=== PATIENT | male | born 1960 | race Caucasian/White ===

== ENCOUNTER → 2020-05-22 15:24 | Outpatient (BNVA) | payer OTHER, SELFPAY | PROVIDERS: PCP Internal Medicine; Visit Provider Surgery | DX: K43.9 Ventral hernia without obstruction or gangrene (principal); K42.9 Umbilical hernia without obstruction or gangrene | CPT/HCPCS: 99212 ==

== ENCOUNTER 2020-05-26 09:55 | Day surgery (SDC) | payer OTHER, SELFPAY ==
[2020-05-26 10:15] LABS: Glucose, Whole Blood 99 mg/dL (60-115)
[2020-05-26 10:23] VITALS: BP 140/85; PULSE 76; RESP 20; TEMP 36.4; O2SAT 97
[2020-05-26 10:24] VITALS: BMI 33.5
[2020-05-26] MEDS: Lactated Ringers 1,000 ML 100 ML IVCONT (10:35)
--- NOTE | 2020-05-26 10:51 | HO.ANESPROP2 ---
HPI - Anesthesia Eval Consult details Narrative: 60 yo male patient here for umbilical and ventral hernia repair PMFSH Active Problems Active Problems: All Active Problems (Updated 05/22/20 @ 16:12 by Harvey Mireles MD) Ventral hernia (Acute) Umbilical hernia (Acute) Type 2 diabetes mellitus with hyperglycemia (Acute) Hypercholesterolemia (Acute) Asthma (Acute) Obstructive sleep apnea (Acute) Obesity (BMI 30-39.9) (Acute) HTN (hypertension) (Acute) Past Medical History Medical History (Updated 05/26/20 @ 11:08 by Korin Sifuentes) Asthma Cholelithiasis Fatty liver Hepatitis C Hypercholesterolemia Obesity (BMI 30-39.9) Obstructive sleep apnea Peripheral neuropathy Peripheral vascular disease Tubular adenoma of colon Type 2 diabetes mellitus with hyperglycemia Umbilical hernia Vitamin D deficiency Family History Family History Father No problems noted. Mother Cancer Maternal Aunt Colon cancer Family history of problems with anesthesia: No Surgical History Surgical History H/O wrist surgery History of Problems with Anesthesia: No Social History Social History Alcohol intake: former Smoking Status: Former smoker Use of substances other than those prescribed or required for medical reasons: No Have you been hit, kicked, punched, or otherwise hurt by someone within the past year? If so, by whom?: No Advance Directives: No Advance Directives Information Provided: Yes Meds Allergies Allergy/AdvReac Type Severity Reaction Status Date / Time No Known Allergies Allergy Verified 05/11/20 20:04 [No Known Allergies*] Active Medications: Current Medications Generic Name Dose Route Start Last Admin Trade Name Freq PRN Reason Stop Dose Admin Lactated Ringer's 1,000 mls @ 50 mls/hr 05/26/20 07:45 Lr IV .Q20H LAINE Lactated Ringer's 1,000 mls @ 100 mls/hr 05/26/20 08:00 05/26/20 10:35 Lr IVCONT 100 mls/hr .Q10H LAINE Administration Exam Exam Date and Time: May 26, 2020 1051 Height,Weight and Vital Signs: Height 6 ft 7 in Weight 135.171 kg Last Vital Signs Temp 97.5 F 05/26/20 10:23 Pulse 76 05/26/20 10:23 Resp 20 05/26/20 10:23 BP 140/85 H 05/26/20 10:23 Pulse Ox 97 05/26/20 10:23 Pertinent Lab Results Pertinent Lab Results: Laboratory Tests 05/26/20 10:05 POC Glucose 99 Airway Mallampati Class: II TM Dist: >3cm Neck ROM: Full Heart: RRR Lungs: CTAB Assessment and Plan Assessment Anesthesia Assessment: Anesthesia Plan Discussed and Chart Reviewed Final Anesthetic Review NPO: Yes ASA Class: III Final Preanesthetic Review: No Changes in Pt Med Stat, Meds/Allgs Chart Reviewed, Consent Obtained/Reviewed and Anes Risks/Benef Reviewed Patient Risk: Intermediate Procedure Risk: Low Assessment/Block/Sedation in SS: Assess/Block/Sedation-SS Anesthetic Plan Anesthetic Plan: GA Disposition: Standard PACU
--- NOTE | 2020-05-26 11:55 | MHC.SHP ---
Pre-Procedural Eval Section A The patient is an INPATIENT: No Changes since office visit: Yes Patient answered all questions; No Cold of Flu in the past 2 weeks, No New Medical Problems and No Changes in Medication The History & Physical has been completed within 30 days and I have reviewed it.: Yes Section B Chief Complaint: umbilical and ventral hernia Allergies: Allergies Allergy/AdvReac Type Severity Reaction Status Date / Time No Known Allergies Allergy Verified 05/11/20 20:04 [No Known Allergies*] Plan Diagnosis/Plan: Unchanged I have reviewed the history and physical and performed a pertinent physical examination on my patient. No changes have occurred unless specified.
--- NOTE | 2020-05-26 13:42 | W.PM.OPN ---
Operative Note Operative Note Date of Service: 05/26/20 Narrative: Preoperative diagnosis: Ventral hernia, umbilical hernia Postoperative diagnosis: Same Procedure: Repair of ventral and umbilical hernia with mesh Surgeon: Harvey Mireles MD Telecine Operator: Marcy Harris PA-C Anesthesia: General LMA Indications for procedure: 60-year-old male patient presenting with a long history of an umbilical hernia as well as a 2nd lump located approximately 5 cm above the umbilicus both of which increase in size with lifting and straining. On examination the patient has both a umbilical hernia and a ventral hernia in the upper midline. Operative findings: Patient was found to have an umbilical and ventral hernia each measuring approximately 3 cm in diameter. The umbilical hernia was repaired with a 6.4 cm round Ventralex mesh and the ventral hernia was also fixed using a 6.4 cm round Ventralex mesh. Specimen: None Estimated blood loss: 5 mL Complications: None Procedure details: Patient was brought to the OR and placed in a supine position. After administering general anesthesia the patient's abdomen was prepped with ChloraPrep and draped in a sterile fashion. A surgical time-out was called and the consent confirmed. Patient received preoperative antibiotics and Venodyne boots were in place. Local anesthesia consisting of 0.75% Sensorcaine with epinephrine was then infiltrated in the midline starting at the mid umbilicus and extending up approximately 10 cm. A midline incision was then made just above the umbilicus and carried out through subcutaneous tissue. Hernia sac was identified at the ventral hernia. This was dissected down to the fascial defect. The fascial defect was then dissected further and the contents reduced. Preperitoneal fat was noted within the hernia sac. This was all reduced into the abdominal cavity. A preperitoneal space was then created from the ventral hernia extending down towards the umbilicus. The umbilical skin was then elevated off the umbilicus fascia and a 3 cm defect noted at this location as well. Once again the fascial defect was dissected clean and its contents reduced. A preperitoneal space was continued below the umbilicus. A 6.4 cm round Ventralex mesh was then obtained. This was placed in the umbilical defect and secured to the fascia using [id number] 1. Tycron sutures. The fascia was closed over the mesh using [id number] Tycron sutures. Attention was then directed to the ventral hernia were once again a 6.4 cm round Ventralex was placed into the preperitoneal space and then secured to the fascia using 1 Tycron sutures in a [id number] fashion. Fascia was closed over the mesh incorporating the mesh in the closure again using [id number] 1 Tycron sutures. Wounds were irrigated with saline and suctioned dry. Additional local anesthesia was infiltrated into the muscular tissue. Umbilical skin was then secured to the fascia using a single 3-0 Polysorb suture. Deep subcutaneous tissue and dermis were then reapproximated using interrupted 3-0 Polysorb sutures. Skin was then closed using a running subcuticular 4-0 Polysorb suture. Steri-Strips 2 x 2 gauze and Tegaderm were then applied. The patient tolerated the procedure well. Sponge, instrument, and needle counts reported as correct. The patient was transferred to PACU in stable condition.
--- NOTE | 2020-05-26 13:51 | PM.OP ---
Brief Operative Note Date of Service: 05/26/20 Pre-op diagnosis: umbilical and ventral hernia Post-op diagnosis: same Procedure: repair of umbilical and ventral hernias with mesh Implants: Ventralex ST 6.4cm mesh x 2 Surgeon: STEWART PERAZA MD Anesthesia: GLMA Head Greenskeeper: Marcy Harris Estimated blood loss (mL): 5 Pathology: none sent Condition: stable Disposition: PACU
[2020-05-26 13:55] VITALS: BP 113/62; PULSE 58; RESP 12; TEMP 36.6; O2SAT 97
[2020-05-26 14:00] VITALS: BP 125/75; PULSE 68; RESP 16; O2SAT 99
[2020-05-26 14:05] VITALS: BP 127/79; PULSE 66; RESP 16; O2SAT 97
[2020-05-26 14:10] VITALS: BP 123/77; PULSE 63; RESP 16; O2SAT 96
[2020-05-26 14:25] VITALS: BP 111/84; PULSE 64; RESP 16; TEMP 36.4; O2SAT 95
== END 2020-05-26 14:58 | disposition home or self-care (01) ==
PROVIDERS: PCP Internal Medicine; Visit Provider Surgery
PROC: (CPT 49585; principal; 2020-05-26 11:20)
DX: K43.9 Ventral hernia without obstruction or gangrene (principal); K42.9 Umbilical hernia without obstruction or gangrene; K76.0 Fatty (change of) liver, not elsewhere classified; J45.909 Unspecified asthma, uncomplicated; G47.33 Obstructive sleep apnea (adult) (pediatric); E11.65 Type 2 diabetes mellitus with hyperglycemia; G62.9 Polyneuropathy, unspecified; Z87.891 Personal history of nicotine dependence; Z79.899 Other long term (current) drug therapy
CPT/HCPCS: 49585; 49560; 49568; 82947; C1781; J0690; J1100; J2250; J2405; J3010

== ENCOUNTER → 2020-06-04 11:12 | Outpatient (BNVA) | payer OTHER, SELFPAY | PROVIDERS: PCP Internal Medicine; Visit Provider Surgery | DX: Z48.815 Encounter for surgical aftercare following surgery on the digestive system (principal); Z87.19 Personal history of other diseases of the digestive system | CPT/HCPCS: 99212 ==

== ENCOUNTER 2020-07-16 10:28 | Outpatient (REF) | payer OTHER, SELFPAY ==
[2020-07-16 11:32] LABS: MANUAL DIFF FLAG NO
[2020-07-16 11:43] LABS: Basophils Absolute Auto 0.1 X10*3/uL (0.0-0.2); Basophils Percent Auto 0.9 % (0-2); Eosinophils Absolute Auto 0.2 X10*3/uL (0.0-0.4); Eosinophils Percent Auto 2.3 % (0-4); Hematocrit 42.3 % (42-52); Hemoglobin 14.7 g/dl (14.0-18.0); Imm Gran Abs Auto 0.04 X10*3/uL (0.00-0.03); Imm Gran Pct Auto 0.6 % (0.0-0.4); Lymphocytes Absolute Auto 1.9 X10*3/uL (1.2-4.9); Lymphocytes Percent Auto 27.4 % (20-40); Mean Corpuscular HGB Conc 34.8 g/dl (31.0-36.0); Mean Corpuscular Hemoglobin 29.6 pg (27.0-33.0); Mean Corpuscular Volume 85.3 fL (80-98); Mean Platelet Volume 9.6 fL (9.4-12.4); Monocytes Absolute Auto 0.6 X10*3/uL (0.1-1.2); Monocytes Percent Auto 8.3 % (2-11); Neutrophils Absolute Auto 4.2 X10*3/uL (2.0-8.3); Neutrophils Percent Auto 60.5 % (45-73); Platelet Count 186 X10*3/uL (160-400); Red Blood Count 4.96 X10*6/uL (4.60-5.80); Red Cell Distribution Width 12.9 % (11.0-16.0)
[2020-07-16 12:22] LABS: Creatinine Urine 264.63 mg/dL; Microalbum/Creatinine Ratio Ur 3.7 ug/mg cr
[2020-07-16 12:58] LABS: Alanine Aminotransferase 23 U/L (0-40); Albumin Level 4.2 g/dL (3.5-5.0); Alkaline Phosphatase 79 U/L (39-117); Anion Gap 12 (12-20); Aspartate Amino Transferase 13 U/L (5-37); Bilirubin Total 0.5 mg/dL (0.0-1.0); Blood Urea Nitrogen 16 mg/dL (9-16); Calcium 9.2 mg/dL (8.4-10.2); Carbon Dioxide 28 mmol/L (22-29); Chloride 105 mmol/L (96-108); Cholesterol 174 mg/dL; Estimated Glomerular Filt Rate > 60; Glucose Random 115 mg/dL (60-115); HDL Cholesterol 28 mg/dL; LDL Cholesterol Calculated 120 mg/dl; Potassium 4.6 mmol/L (3.3-5.1); Sodium 140 mmol/L (135-145); Total Protein 6.3 g/dL (6.5-8.0); Triglycerides 133 mg/dL
[2020-07-16 13:15] LABS: Folate 9.7 ng/mL (> or = 4.0); Vitamin B12 1118 pg/mL (200-900)
[2020-07-16 13:21] LABS: Free T4 (Free Thyroxine) 0.93 ng/dL (0.71-1.85); Thyroid Stimulating Hormone 1.57 uIU/mL (0.32-4.0)
[2020-07-16 14:54] LABS: CDIFF Ag Negative (Negative); CDIFF Internal ctrl Dots and bkg OK (V); CDiff Toxin Negative (Negative)
== END 2020-07-16 10:29 | disposition home or self-care (01) ==
LOC: HO.LAB 10:28
PROVIDERS: PCP Internal Medicine; Visit Provider Internal Medicine
DX: R19.7 Diarrhea, unspecified (principal); E78.00 Pure hypercholesterolemia, unspecified; E11.65 Type 2 diabetes mellitus with hyperglycemia
CPT/HCPCS: 36415; 80053; 80061; 82043; 82607; 82746; 84439; 84443; 85025; 87324; 87449

== ENCOUNTER → 2020-07-22 15:29 | Outpatient (BNVA) | payer OTHER, SELFPAY | PROVIDERS: PCP Internal Medicine; Visit Provider Surgery | DX: Z48.815 Encounter for surgical aftercare following surgery on the digestive system (principal); Z87.19 Personal history of other diseases of the digestive system | CPT/HCPCS: 99212 ==

== ENCOUNTER 2021-02-17 10:35 | Outpatient (REF) | payer OTHER, SELFPAY ==
[2021-02-17 11:31] LABS: Alanine Aminotransferase 25 U/L (0-40); Albumin Level 4.2 g/dL (3.5-5.0); Alkaline Phosphatase 72 U/L (39-117); Anion Gap 10 (12-20); Aspartate Amino Transferase 13 U/L (5-37); Bilirubin Total 0.5 mg/dL (0.0-1.0); Blood Urea Nitrogen 15 mg/dL (9-16); Calcium 9.4 mg/dL (8.4-10.2); Carbon Dioxide 26 mmol/L (22-29); Chloride 109 mmol/L (96-108); Cholesterol 175 mg/dL; Estimated Glomerular Filt Rate > 60; Glucose Random 127 mg/dL (60-115); HDL Cholesterol 29 mg/dL; LDL Cholesterol Calculated 123 mg/dl; Potassium 4.3 mmol/L (3.3-5.1); Sodium 141 mmol/L (135-145); Total Protein 6.5 g/dL (6.5-8.0); Triglycerides 117 mg/dL
[2021-02-17 11:52] LABS: Prostate Specific Antigen Scr 0.64 ng/mL (<0.05-4.0)
[2021-02-17 12:17] LABS: Creatinine Urine 305.26 mg/dL
== END 2021-02-17 10:36 | disposition home or self-care (01) ==
LOC: HO.LAB 10:35
PROVIDERS: PCP Internal Medicine; Visit Provider Internal Medicine
DX: Z12.5 Encounter for screening for malignant neoplasm of prostate (principal); I10 Essential (primary) hypertension; E11.65 Type 2 diabetes mellitus with hyperglycemia; E78.00 Pure hypercholesterolemia, unspecified
CPT/HCPCS: 36415; 80053; 80061; 84153

== ENCOUNTER 2021-05-22 13:10 | Outpatient (REF) | payer OTHER, SELFPAY ==
--- NOTE | ~2021-05-22 | XR_ITS ---
EXAMINATION: XR LUMBOSACRAL SPINE CLINICAL INFORMATION: Low back pain COMPARISON: None TECHNIQUE: Three views of the lumbosacral spine. FINDINGS: Bone alignment is normal. No fracture or dislocation is seen. There is multilevel degenerative spondylosis. There is degenerative disc disease at L4-L5 and L5-S1. There is lower lumbar spine facet arthritis. There is evidence of atherosclerotic disease. XR/XR lumbar spine 2-3V IMPRESSION: Degenerative changes.
== END 2021-05-22 13:11 | disposition home or self-care (01) ==
LOC: HO.XRAY 13:10
PROVIDERS: PCP Internal Medicine; Visit Provider Internal Medicine
DX: M54.50 Low back pain, unspecified (principal)
CPT/HCPCS: 72100

== ENCOUNTER 2021-06-23 12:54 | Inpatient (IN) | payer OTHER, SELFPAY ==
[2021-06-23] VITALS (8 sets, daily range): BP systolic 126–161; BP diastolic 75–89; PULSE 89–128; RESP 14–21; TEMP 36.6–36.7; O2SAT 95–100; BMI 31.7
--- NOTE | ~2021-06-23 | XR_ITS ---
EXAMINATION: XR CHEST CLINICAL INFORMATION: Shortness of breath, Covid COMPARISON: Chest radiograph from 04/04/2018 TECHNIQUE: Frontal view of the chest was obtained. FINDINGS: Slight patchy opacities involving the bilateral mid and lower lung meadows suggesting infectious/inflammatory etiology. No pneumothorax. Trachea is midline. Cardiomediastinal silhouette is not enlarged. No large pleural effusion. Degenerative changes of the thoracolumbar spine. Soft tissues are unremarkable. XR/XR chest 1V IMPRESSION: Slight patchy opacities involving the bilateral mid and lower lung meadows suggesting infectious/inflammatory etiology.
--- NOTE | 2021-06-23 13:07 | ECG_ITS ---
Test Reason : covid Blood Pressure : / mmHG Vent. Rate : 090 BPM Atrial Rate : 270 BPM P-R Int : 000 ms QRS Dur : 114 ms QT Int : 370 ms P-R-T Axes : -76 043 012 degrees QTc Int : 452 ms Atrial flutter with variable A-V block incomplete Right bundle branch block Abnormal ECG When compared with ECG of 04-APR-2018 10:57, Atrial flutter has replaced Sinus rhythm Referred By: Jenelle Flower Electronically Signed By:JUJU WRIGHT
--- NOTE | 2021-06-23 13:16 | ED.SOB ---
HPI - SOB/Dyspnea General Chief Complaint: Dyspnea Stated Complaint: SOB,COUGH,LETHARGIC,? COVID,RECENT + HOME TEST Time Seen by Provider: 06/23/21 13:00 Source: patient Mode of arrival: ambulatory History of Present Illness HPI Narrative: 61-year-old male with past medical history of asthma, hepatitis-C, HLD, obesity, MIGUELITO, PVD, vitamin-D deficiency, diabetes, COVID-19 positive on home test on 06/15/21, presenting to the ED complaining of worsening generalized fatigue/weakness, malaise, myalgias, productive cough, and SOB. Denies fever, chills, abdominal pain, nausea/vomiting, pedal edema, history of clots, chest pain MD elicited complaint: shortness of breath and cough Pertinent past history: asthma Related Data Previous Rx's Medication Instructions Recorded comp.stocking,thigh,long,large #2 ea 11/07/20 lisinopril 10 mg tablet 10 mg PO DAILY 30 Days #90 tab 11/28/20 ibuprofen 800 mg tablet 800 mg PO Q8H PRN #20 tab 04/07/21 simvastatin 5 mg tablet 5 mg PO BEDTIME #90 tab 05/12/21 Allergies Allergy/AdvReac Type Severity Reaction Status Date / Time No Known Allergies Allergy Verified 05/12/21 15:31 [No Known Allergies*] Review of Systems Review of Systems: Constitutional: No Fever, No Chills, + Fatigue, + Malaise ENT/Mouth: No Ear Pain, No Nasal Congestion, No Hoarseness, No sore throat, No Rhinorrhea, No Swallowing Difficulty Eyes: No Eye Pain, No Swelling, No Redness, No Discharge Cardiovascular: No Chest Pain, + SOB, No Dyspnea on Exertion, No Orthopnea, No Edema, No Palpitations Respiratory: + Cough, + Sputum, + Wheezing, No Smoke Exposure, + Dyspnea Gastrointestinal: No Nausea, No Vomiting, No Diarrhea, No Constipation, No Abdominal pain Genitourinary: No Dysuria, No Urinary Frequency, No Hematuria, No Urgency, No Flank Pain Musculoskeletal: No joint pain, + Myalgias, No Joint Swelling Skin: No Skin Lesions, No rash Neuro: No Weakness, No Loss of Consciousness, No Dizziness, No Headache Yes all other systems are reviewed and are negative PMFSH Past Medical History Attestation statement: The following information was validated with the patient. Medical History Asthma Back pain Cholelithiasis Fatty liver Hepatitis C Hypercholesterolemia Obesity (BMI 30-39.9) Obstructive sleep apnea Peripheral neuropathy Peripheral vascular disease Tubular adenoma of colon Type 2 diabetes mellitus with hyperglycemia Umbilical hernia Vitamin D deficiency Surgical History H/O wrist surgery Family History Family History Father No problems noted. Mother Cancer Maternal Aunt Colon cancer Sister Substance abuse Social History Social History Housing: House Alcohol intake: never Patient Tobacco Use Status: Former Tobacco user Tobacco use type: Cigarette Years Smoked: 1980 e-Cigarette/Vaping Use: Never Used Second Hand Smoke Exposure: Yes Substance Use Type: Marijuana Advance Directives: No Advance Directives Information Provided: No service: No Current occupational status: employed Current occupational exposures/hazards: No Physical Exam Vital Signs: Vital Signs: Last Vital Signs Temp 97.9 F 06/23/21 13:01 Pulse 98 06/23/21 15:51 Resp 18 06/23/21 15:51 BP 131/79 06/23/21 15:09 Pulse Ox 97 06/23/21 15:09 BMI result Body Mass Index 31.7 Const: General: cooperative and no acute distress Orientation/consciousness: patient oriented x3 Limitations: no limitations HEENT: Head: Yes normal to inspection and Yes atraumatic Ears: hearing grossly normal bilaterally General nose exam: Normal external nose present Face and sinus: Yes normal facial exam Eyes: General: appearance normal, both eyes and all related structures EOM: EOMs intact bilaterally Neck: Neck: Yes normal visual inspection and Yes no meningeal signs Resp: Effort & Inspection: normal respiratory effort and no respiratory distress Auscultation: rhonchi lower bilaterally, wheezes expiratory wheezes and throughout and diminished lung sounds diffuse Cardio: Rate: regular rate Heart sounds: S1 normal heart sound present and S2 normal heart sound present GI: Inspection: Yes normal to inspection Palpation (GI): Soft to palpation, nontender, no guarding and not rigid : General: Yes no CVA tenderness Back/Spine/Pelvis: Back: no CVA tenderness Skin: Rashes: no rashes Wounds: no wounds Neuro: General: patient oriented x3, tone normal and no meningeal signs Gait exam (Neuro): Normal gait present Extrem: General: Yes normal to inspection, Yes no pedal edema and Yes no calf tenderness Course Course Course Narrative: -1425--no leukocytosis. Ferritin/CRP elevated. Labs otherwise reassuring -COVID-19 positive XR chest 1V IMPRESSION: Slight patchy opacities involving the bilateral mid and lower lung meadows suggesting infectious/inflammatory etiology. > IV Rocephin and Azithromycin ordered -on re-evaluation after an hour long DuoNeb patient is still with coarse lung sounds throughout. Maintaining saturations >96% on RA. Plan to admit for further management MDM - SOB/Dyspnea MDM Narrative Medical decision making narrative: 61-year-old male with past medical history of asthma, hepatitis-C, HLD, obesity, MIGUELITO, PVD, vitamin-D deficiency, diabetes, COVID-19 positive on home test on 06/15/21, presenting to the ED complaining of worsening generalized fatigue/weakness, malaise, myalgias, productive cough, and SOB. On exam vital signs stable, satting 99% on RA, diffuse expiratory wheeze and diminished breath sounds bibasilarly, no pedal edema/calf tenderness. Concern for continued symptoms of COVID-19 vs COVID pneumonia vs asthma exacerbation. R/o PNA vs CHF. Lower concern for PE Low concern for severe sepsis as known viral etiology Plan: EKG, labs, CXR, DuoNeb, magnesium, IV Decadron, reassess Differential Diagnosis Differential diagnosis: Likely congestive heart failure, pneumonia and asthma with exacerbation Medical Records Attestation: I reviewed the patient's medical records. Lab Data Attestation: I reviewed the patient's lab results. Result diagrams: 06/23/21 13:24 06/23/21 13:24 Labs: Lab Results 06/23/21 06/23/21 06/23/21 Range/Units 13:24 13:24 13:24 WBC 6.4 (4.8-10.8) X10*3/uL RBC 5.11 (4.60-5.80) X10*6/uL Hgb 15.2 (14.0-18.0) g/dl Hct 41.9 L (42.0-52.0) % MCV 82.0 (80.0-98.0) fL MCH 29.7 (27.0-33.0) pg MCHC 36.3 H (31.0-36.0) g/dl RDW 12.3 (11.0-16.0) % Plt Count 172 (160-400) X10*3/uL MPV 9.5 (9.4-12.4) fL Immature Gran % (Auto) 0.6 H (0.0-0.4) % Neut % (Auto) 68.7 (45-73) % Lymph % (Auto) 17.1 L (20-40) % [place] % (Auto) 12.4 H (2-11) % Eos % (Auto) 0.9 (0-4) % Baso % (Auto) 0.3 (0-2) % Lymph # (Auto) 1.1 L (1.2-4.9) X10*3/uL [place] # (Auto) 0.8 (0.1-1.2) X10*3/uL Eos # (Auto) 0.1 (0.0-0.4) X10*3/uL Baso # (Auto) 0.0 (0.0-0.2) X10*3/uL Abs Immat Gran (auto) 0.04 H (0.00-0.03) X10*3/uL Absolute Neuts (auto) 4.4 (2.0-8.3) x10*3/uL Absolute Nucleated RBC 0.000 (0.0-0.012) X10*3/uL Nucleated RBC % (auto) 0.0 (0.0-0.2) /100WBC Sodium 141 (135-145) mmol/L Potassium 4.3 (3.3-5.1) mmol/L Chloride 108 (96-108) mmol/L Carbon Dioxide 25 (22-29) mmol/L Anion Gap 12 (12-20) BUN 11 (9-16) mg/dL Creatinine 0.77 (0.5-1.4) mg/dL Estim Creat Clear Calc 149.0 Estimated GFR > 60 Random Glucose 117 H (60-115) mg/dL Lactic Acid (0.5-2.0) mmol/L Calcium 9.1 (8.4-10.2) mg/dL Magnesium 2.0 (1.6-2.6) mg/dL Ferritin (20-250) ng/mL Total Bilirubin 0.7 (0.0-1.0) mg/dL Direct Bilirubin 0.3 (0.0-0.5) mg/dL AST 22 D (5-37) U/L ALT 41 H (0-40) U/L Alkaline Phosphatase 88 D (39-117) U/L Lactate Dehydrogenase 139 (118-273) U/L Troponin I High Sens 4.5 (<3.5-35.0) ng/L C-Reactive Protein 3.14 H (< or = 0.50) mg/dL B-Natriuretic Peptide (<100) pg/mL Total Protein 6.4 L (6.5-8.0) g/dL Albumin 4.0 (3.5-5.0) g/dL Procalcitonin ng/mL COVID-19 (ANETA) (Negative) COVID-19 Clin Com Influenza Type A (MARYJANE) (Negative) Influenza Type B (MARYJANE) (Negative) Influenza A & B Note 06/23/21 06/23/21 06/23/21 Range/Units 13:24 13:24 13:24 WBC (4.8-10.8) X10*3/uL RBC (4.60-5.80) X10*6/uL Hgb (14.0-18.0) g/dl Hct (42.0-52.0) % MCV (80.0-98.0) fL MCH (27.0-33.0) pg MCHC (31.0-36.0) g/dl RDW (11.0-16.0) % Plt Count (160-400) X10*3/uL MPV (9.4-12.4) fL Immature Gran % (Auto) (0.0-0.4) % Neut % (Auto) (45-73) % Lymph % (Auto) (20-40) % [place] % (Auto) (2-11) % Eos % (Auto) (0-4) % Baso % (Auto) (0-2) % Lymph # (Auto) (1.2-4.9) X10*3/uL [place] # (Auto) (0.1-1.2) X10*3/uL Eos # (Auto) (0.0-0.4) X10*3/uL Baso # (Auto) (0.0-0.2) X10*3/uL Abs Immat Gran (auto) (0.00-0.03) X10*3/uL Absolute Neuts (auto) (2.0-8.3) x10*3/uL Absolute Nucleated RBC (0.0-0.012) X10*3/uL Nucleated RBC % (auto) (0.0-0.2) /100WBC Sodium (135-145) mmol/L Potassium (3.3-5.1) mmol/L Chloride (96-108) mmol/L Carbon Dioxide (22-29) mmol/L Anion Gap (12-20) BUN (9-16) mg/dL Creatinine (0.5-1.4) mg/dL Estim Creat Clear Calc Estimated GFR Random Glucose (60-115) mg/dL Lactic Acid 1.0 (0.5-2.0) mmol/L Calcium (8.4-10.2) mg/dL Magnesium (1.6-2.6) mg/dL Ferritin 832 H (20-250) ng/mL Total Bilirubin (0.0-1.0) mg/dL Direct Bilirubin (0.0-0.5) mg/dL AST (5-37) U/L ALT (0-40) U/L Alkaline Phosphatase (39-117) U/L Lactate Dehydrogenase (118-273) U/L Troponin I High Sens (<3.5-35.0) ng/L C-Reactive Protein (< or = 0.50) mg/dL B-Natriuretic Peptide 25 (<100) pg/mL Total Protein (6.5-8.0) g/dL Albumin (3.5-5.0) g/dL Procalcitonin ng/mL COVID-19 (ANETA) (Negative) COVID-19 Clin Com Influenza Type A (MARYJANE) (Negative) Influenza Type B (MARYJANE) (Negative) Influenza A & B Note 06/23/21 06/23/21 06/23/21 Range/Units 13:24 13:33 13:33 WBC (4.8-10.8) X10*3/uL RBC (4.60-5.80) X10*6/uL Hgb (14.0-18.0) g/dl Hct (42.0-52.0) % MCV (80.0-98.0) fL MCH (27.0-33.0) pg MCHC (31.0-36.0) g/dl RDW (11.0-16.0) % Plt Count (160-400) X10*3/uL MPV (9.4-12.4) fL Immature Gran % (Auto) (0.0-0.4) % Neut % (Auto) (45-73) % Lymph % (Auto) (20-40) % [place] % (Auto) (2-11) % Eos % (Auto) (0-4) % Baso % (Auto) (0-2) % Lymph # (Auto) (1.2-4.9) X10*3/uL [place] # (Auto) (0.1-1.2) X10*3/uL Eos # (Auto) (0.0-0.4) X10*3/uL Baso # (Auto) (0.0-0.2) X10*3/uL Abs Immat Gran (auto) (0.00-0.03) X10*3/uL Absolute Neuts (auto) (2.0-8.3) x10*3/uL Absolute Nucleated RBC (0.0-0.012) X10*3/uL Nucleated RBC % (auto) (0.0-0.2) /100WBC Sodium (135-145) mmol/L Potassium (3.3-5.1) mmol/L Chloride (96-108) mmol/L Carbon Dioxide (22-29) mmol/L Anion Gap (12-20) BUN (9-16) mg/dL Creatinine (0.5-1.4) mg/dL Estim Creat Clear Calc Estimated GFR Random Glucose (60-115) mg/dL Lactic Acid (0.5-2.0) mmol/L Calcium (8.4-10.2) mg/dL Magnesium (1.6-2.6) mg/dL Ferritin (20-250) ng/mL Total Bilirubin (0.0-1.0) mg/dL Direct Bilirubin (0.0-0.5) mg/dL AST (5-37) U/L ALT (0-40) U/L Alkaline Phosphatase (39-117) U/L Lactate Dehydrogenase (118-273) U/L Troponin I High Sens (<3.5-35.0) ng/L C-Reactive Protein (< or = 0.50) mg/dL B-Natriuretic Peptide (<100) pg/mL Total Protein (6.5-8.0) g/dL Albumin (3.5-5.0) g/dL Procalcitonin 0.24 ng/mL COVID-19 (ANETA) Positive A (Negative) COVID-19 Clin Com See Note Influenza Type A (MARYJANE) Negative (Negative) Influenza Type B (MARYJANE) Negative (Negative) Influenza A & B Note See Note ECG Data Attestation: I personally reviewed and interpreted this ECG as follows: ECG interpretation date: 06/23/21 ECG interpretation time: 17:10 Interpretation: EKG showing a flutter at a rate of 90. Right bundle-branch block. QTC 452. No STEMI Discharge Plan Discharge Clinical Impression: COVID-19, Asthma, Pneumonia Patient Disposition: Admitted As Inpatient
[2021-06-23 13:31] LABS: MANUAL DIFF FLAG NO
[2021-06-23 13:32] LABS: Basophils Percent Auto 0.3 % (0-2); Eosinophils Absolute Auto 0.1 X10*3/uL (0.0-0.4); Eosinophils Percent Auto 0.9 % (0-4); Hematocrit 41.9 % (42.0-52.0); Hemoglobin 15.2 g/dl (14.0-18.0); Imm Gran Abs Auto 0.04 X10*3/uL (0.00-0.03); Imm Gran Pct Auto 0.6 % (0.0-0.4); Lymphocytes Absolute Auto 1.1 X10*3/uL (1.2-4.9); Lymphocytes Percent Auto 17.1 % (20-40); Mean Corpuscular HGB Conc 36.3 g/dl (31.0-36.0); Mean Corpuscular Hemoglobin 29.7 pg (27.0-33.0); Mean Platelet Volume 9.5 fL (9.4-12.4); Monocytes Absolute Auto 0.8 X10*3/uL (0.1-1.2); Monocytes Percent Auto 12.4 % (2-11); Neutrophils Absolute Auto 4.4 x10*3/uL (2.0-8.3); Neutrophils Percent Auto 68.7 % (45-73); Platelet Count 172 X10*3/uL (160-400); Red Blood Count 5.11 X10*6/uL (4.60-5.80); Red Cell Distribution Width 12.3 % (11.0-16.0); White Blood Count 6.4 X10*3/uL (4.8-10.8)
[2021-06-23] MEDS: dexAMETHasone sod phosphate 4 MG/ML VIAL 6 MG IVPUSH (13:44)
[2021-06-23] MEDS: Magnesium Sulfate/H2O 2 GM/50 ML PIGGYBACK IV (13:46)
[2021-06-23 13:50] LABS: COVID-19 Test Positive (Negative)
[2021-06-23 13:52] LABS: B Type Natriuretic Peptide 25 pg/mL (<100)
[2021-06-23 13:53] LABS: Alanine Aminotransferase 41 U/L (0-40); Alkaline Phosphatase 88 U/L (39-117); Anion Gap 12 (12-20); Aspartate Amino Transferase 22 U/L (5-37); Bilirubin Direct 0.3 mg/dL (0.0-0.5); Bilirubin Total 0.7 mg/dL (0.0-1.0); Blood Urea Nitrogen 11 mg/dL (9-16); C Reactive Protein 3.14 mg/dL (< or = 0.50); Calcium 9.1 mg/dL (8.4-10.2); Carbon Dioxide 25 mmol/L (22-29); Chloride 108 mmol/L (96-108); Estimated Glomerular Filt Rate > 60; Glucose Random 117 mg/dL (60-115); Lactate Dehydrogenase 139 U/L (118-273); Potassium 4.3 mmol/L (3.3-5.1); Sodium 141 mmol/L (135-145); Total Protein 6.4 g/dL (6.5-8.0); Troponin-I High Sensitivity 4.5 ng/L (<3.5-35.0)
[2021-06-23 13:59] LABS: IDNOW Serial# 55D5AD1C; Influenza A Negative (Negative); Influenza B2 Negative (Negative)
[2021-06-23] MEDS: Albuterol Sulfate (0.083%) 2.5 MG/3 ML VIAL.NEB 5 MG INHALE (14:09)
[2021-06-23 14:12] LABS: Procalcitonin 0.24 ng/mL
[2021-06-23 14:13] LABS: Ferritin 832 ng/mL (20-250)
[2021-06-23] MEDS: Albuterol/Iprat 2.5/0.5MG 3 ML AMPUL.NEB INHALE (14:15)
[2021-06-23] MEDS: HYDROcodone/Homat 5/1.5/5 ML 5 ML SYRUP PO (14:27)
[2021-06-23] MEDS: Benzonatate 100 MG CAPSULE 200 MG PO (14:27)
[2021-06-23] MEDS: cefTRIAXone sodium 1 GM in 0.9 % Sodium Chloride 50 ML IV (15:04)
[2021-06-23] MEDS: Azithromycin 500 MG in 0.9 % Sodium Chloride 250 ML 125 MG IV (15:08)
--- NOTE | 2021-06-23 15:31 | PC.NURSE ---
plan to admit the pt, I called the to inform her. pts VSS, pt with cough and weakness..
--- NOTE | 2021-06-23 16:17 | P.HPHOSP_ITS ---
History of Present Illness Date of Service: 06/23/21 Chief Complaint: SOB, weakness A 61 years old male with PMH of Asthma, Hep C, HLD, MIGUELITO, PVD, Diabetes among others who presents to the hospital with 1 week symptoms of SOB, weakness and decrease PO intake after testing positive for covid on 06/15. The patient report that his symptoms started as upper respiratory symptoms which worsened over the last week to shortness of breath, coughing, muscle aches and increased weakness. His oral intake significantly decreased and today felt he cannot tolerated anymore so he decided to come to the hospital for further evaluation. In the emergency he was found to have above 90 saturation on room. CXR showed bilateral lung opacities with elevated CRP and ferritin. Admitted for further evaluation and treatment. Review of Systems Review of Systems: reporting subjective fever, chills with generalized weakness No chest pain, palpitation having shortness of breath and coughing No abdominal pain, nausea or vomiting No urinary symptoms No any rash or wounds [facility] Medical History Asthma Back pain Cholelithiasis Fatty liver Hepatitis C Hypercholesterolemia Obesity (BMI 30-39.9) Obstructive sleep apnea Peripheral neuropathy Peripheral vascular disease Tubular adenoma of colon Type 2 diabetes mellitus with hyperglycemia Umbilical hernia Vitamin D deficiency Family History Father No problems noted. Mother Cancer Maternal Aunt Colon cancer Sister Substance abuse Surgical History H/O wrist surgery Social History Housing: House Alcohol intake: never Patient Tobacco Use Status: Former Tobacco user Tobacco use type: Cigarette Years Smoked: 1980 e-Cigarette/Vaping Use: Never Used Second Hand Smoke Exposure: Yes Substance Use Type: Marijuana Advance Directives: No Advance Directives Information Provided: No service: No Current occupational status: employed Current occupational exposures/hazards: No Meds Allergies Allergy/AdvReac Type Severity Reaction Status Date / Time No Known Allergies Allergy Verified 05/12/21 15:31 [No Known Allergies*] Active Medications: Current Medications Azithromycin 500 mg/ Sodium (Chloride) 250 mls @ 125 mls/hr IV ONCE ONE Stop: 06/23/21 16:45 Last Admin: 06/23/21 15:08 Dose: 125 mls/hr Documented by: Physical Exam Vital Signs and Narrative: Vital Signs: Last Vital Signs Temp 97.9 F 06/23/21 13:01 Pulse 98 06/23/21 15:51 Resp 18 06/23/21 15:51 BP 131/79 06/23/21 15:09 Pulse Ox 97 06/23/21 15:09 BMI result Body Mass Index 31.7 Const: Other: Constitutional : Alert, oriented, looks istressed and tired Neck : Normal inspection, Supple Cardiovascular : RRR, no JVP, no lower extremity edema Respiratory : fair bilateral air entry, no crackles, bilateral scattered wheezes Gastrointestinal: soft, lax, Normal bowel sounds, Non tender Skin : Warm, Dry Neurological : Alert & oriented x3, No focal deficit , CN 2-12 within normal Results Labs CBC and Chem 7: 06/23/21 13:24 06/23/21 13:24 Labs: Laboratory Results - last 24 hr 06/23/21 06/23/21 06/23/21 13:24 13:24 13:24 MCV 82.0 MCH 29.7 MCHC 36.3 H RDW 12.3 Plt Count 172 MPV 9.5 Immature Gran % (Auto) 0.6 H Neut % (Auto) 68.7 Lymph % (Auto) 17.1 L [place] % (Auto) 12.4 H Eos % (Auto) 0.9 Baso % (Auto) 0.3 Lymph # (Auto) 1.1 L [place] # (Auto) 0.8 Eos # (Auto) 0.1 Baso # (Auto) 0.0 Abs Immat Gran (auto) 0.04 H Absolute Neuts (auto) 4.4 Absolute Nucleated RBC 0.000 Nucleated RBC % (auto) 0.0 Anion Gap 12 Estim Creat Clear Calc 149.0 Estimated GFR > 60 Random Glucose 117 H Lactic Acid Calcium 9.1 Magnesium 2.0 Ferritin Total Bilirubin 0.7 Direct Bilirubin 0.3 AST 22 D ALT 41 H Alkaline Phosphatase 88 D Lactate Dehydrogenase 139 Troponin I High Sens 4.5 C-Reactive Protein 3.14 H B-Natriuretic Peptide Total Protein 6.4 L Albumin 4.0 Procalcitonin COVID-19 (ANETA) COVID-19 Clin Com Influenza Type A (MARYJANE) Influenza Type B (MARYJANE) Influenza A & B Note 06/23/21 06/23/21 06/23/21 13:24 13:24 13:24 MCV MCH MCHC RDW Plt Count MPV Immature Gran % (Auto) Neut % (Auto) Lymph % (Auto) [place] % (Auto) Eos % (Auto) Baso % (Auto) Lymph # (Auto) [place] # (Auto) Eos # (Auto) Baso # (Auto) Abs Immat Gran (auto) Absolute Neuts (auto) Absolute Nucleated RBC Nucleated RBC % (auto) Anion Gap Estim Creat Clear Calc Estimated GFR Random Glucose Lactic Acid 1.0 Calcium Magnesium Ferritin 832 H Total Bilirubin Direct Bilirubin AST ALT Alkaline Phosphatase Lactate Dehydrogenase Troponin I High Sens C-Reactive Protein B-Natriuretic Peptide 25 Total Protein Albumin Procalcitonin COVID-19 (ANETA) COVID-19 Clin Com Influenza Type A (MARYJANE) Influenza Type B (MARYJANE) Influenza A & B Note 06/23/21 06/23/21 06/23/21 13:24 13:33 13:33 MCV MCH MCHC RDW Plt Count MPV Immature Gran % (Auto) Neut % (Auto) Lymph % (Auto) [place] % (Auto) Eos % (Auto) Baso % (Auto) Lymph # (Auto) [place] # (Auto) Eos # (Auto) Baso # (Auto) Abs Immat Gran (auto) Absolute Neuts (auto) Absolute Nucleated RBC Nucleated RBC % (auto) Anion Gap Estim Creat Clear Calc Estimated GFR Random Glucose Lactic Acid Calcium Magnesium Ferritin Total Bilirubin Direct Bilirubin AST ALT Alkaline Phosphatase Lactate Dehydrogenase Troponin I High Sens C-Reactive Protein B-Natriuretic Peptide Total Protein Albumin Procalcitonin 0.24 COVID-19 (ANETA) Positive A COVID-19 Clin Com See Note Influenza Type A (MARYJANE) Negative Influenza Type B (MARYJANE) Negative Influenza A & B Note See Note Imaging Radiologist's Impressions: Impressions Chest X-Ray 06/23/21 13:46 IMPRESSION: Slight patchy opacities involving the bilateral mid and lower lung meadows suggesting infectious/inflammatory etiology. Assessment and Plan (1) COVID-19 virus infection: Status: Acute Plan A 61 years old male with PMH of Asthma, Hep C, HLD, MIGUELITO, PVD, Diabetes among others who presents to the hospital with 1 week symptoms of SOB, weakness and decrease PO intake after testing positive for covid on 06/15. Covid19 infection Not hypoxic, decrease PO intake and gen weakness CXR showing bilateral opacities with procal of .2 received CTx and Azth in ED, to hold for now Dexamethason 6 mg daily O2 supplement as needed Follow markers (CRP, LDH and Ferritin) elevated PHysical deconditioning 2/2 worsening infection To do PT eval when respiratory status improves Type 2 DM SSI, diabetic diet MIGUELITO report not using CPAP at home DVT PPx Lovenox Patient will need 2 overnight hospital stay for treatment of Covid related complications given high chance of worsening into Sepsis Quality Stroke Does the patient have a stroke diagnosis?: No VTE Prior VTE?: No VTE Risk Level:: Medical - moderate - high VTE Device Contraindication: Treatment Not Indicated VTE Drug Contraindication: N/A - Med Ordered
--- NOTE | 2021-06-23 16:37 | PHA.MEDREC ---
Pharmacy Consult ? Medication Reconciliation Pharmacy has completed the medication reconciliation.
[2021-06-23] MEDS: Enoxaparin Sodium 40 MG/0.4 ML SYRINGE SUBCUT (17:15)
[2021-06-23] MEDS: guaiFENesin LA 600 MG TAB.ER.12H PO ×2 (17:15→21:46)
[2021-06-23] MEDS: Albuterol Sulfate 90 MCG 8 GM INHALER 4 PUFF INHALE (19:56)
--- NOTE | 2021-06-23 20:33 | PC.NURSE ---
report called to Nicole on C
--- NOTE | 2021-06-23 20:43 | PC.NURSE ---
pt given a turkey sandwich, saltines, and a large iced water as requested
[2021-06-23] MEDS: Benzonatate 100 MG CAPSULE PO (21:46)
[2021-06-23] MEDS: Atorvastatin Calcium 40 MG TABLET PO (21:46)
[2021-06-23 21:47] LABS: Glucose, Whole Blood 232 mg/dL (60-115)
[2021-06-24] VITALS (9 sets, daily range): BP systolic 144–182; BP diastolic 70–93; PULSE 83–89; RESP 18–20; TEMP 35.7–37; O2SAT 92–96
[2021-06-24 07:19] LABS: Hematocrit 38.7 % (42.0-52.0); Hemoglobin 13.9 g/dl (14.0-18.0); Mean Corpuscular HGB Conc 35.9 g/dl (31.0-36.0); Mean Corpuscular Hemoglobin 29.6 pg (27.0-33.0); Mean Corpuscular Volume 82.3 fL (80.0-98.0); Mean Platelet Volume 9.9 fL (9.4-12.4); Platelet Count 198 X10*3/uL (160-400); Red Cell Distribution Width 12.3 % (11.0-16.0); White Blood Count 6.8 X10*3/uL (4.8-10.8)
[2021-06-24] MEDS: Albuterol Sulfate 90 MCG 8 GM INHALER 4 PUFF INHALE ×3 (07:29→20:10)
[2021-06-24 07:32] LABS: Anion Gap 11 (12-20); Blood Urea Nitrogen 15 mg/dL (9-16); Calcium 8.9 mg/dL (8.4-10.2); Carbon Dioxide 24 mmol/L (22-29); Chloride 107 mmol/L (96-108); Creatinine Clr Calc Pharmacy 147.1; Estimated Glomerular Filt Rate > 60; Glucose Random 160 mg/dL (60-115); Potassium 4.3 mmol/L (3.3-5.1); Sodium 138 mmol/L (135-145)
--- NOTE | 2021-06-24 08:53 | MHC.CM.PN ---
Addendum entered by Valarie Pugh 06/24/21 08:57: PATIENT HAS NOT BEEN VACCINATED Original Note: MALE 61 COVID+ LIVES WITH . INDEPENDENT ALL FUNCTIONAL MOBILITY. HCP DOCUMENTED PLACED ON CHART AND EMR. [facility] NO SERVICES FAMILY TRANSPORT.
[2021-06-24] MEDS: dexAMETHasone 6 MG TABLET PO (09:09)
[2021-06-24] MEDS: guaiFENesin LA 600 MG TAB.ER.12H PO ×2 (09:10→20:50)
[2021-06-24] MEDS: lisinopriL 10 MG TABLET PO (09:10)
[2021-06-24] MEDS: 0.9 % Sodium Chloride Flush 3 ML SYRINGE IVFLUSH ×3 (09:10→16:18)
[2021-06-24] MEDS: Benzonatate 100 MG CAPSULE PO ×3 (09:10→20:51)
[2021-06-24] MEDS: Acetaminophen 325 MG TABLET 650 MG PO (09:40)
[2021-06-24 11:36] LABS: Glucose, Whole Blood 167 mg/dL (60-115)
--- NOTE | 2021-06-24 12:53 | HO.PM.IMPN ---
Subjective Subjective Date of Service: 06/24/21 Interval History: cc: sob interval history: still sob though not hypoxic, feeling unwell Cardiovascular Cardiovascular: Reports no additional cardiovascular complaints Gastrointestinal Gastrointestinal: Reports no additional gastrointestinal complaints Physical Exam Vital Signs: Vital Signs: Last Vital Signs Temp 98.4 F 06/24/21 11:20 Pulse 88 06/24/21 11:41 Resp 20 06/24/21 11:41 BP 158/70 H 06/24/21 11:20 Pulse Ox 95 06/24/21 11:20 BMI result Body Mass Index 31.7 General: lethargic O X 3, ill appearing Resp: CTA bilateral, no accessory muscles used CVS: S1,S2,RRR GI: soft, non tender, non distended Neuro: motor grossly intact, alert Psych: appropriate affect, appropriate insight Objective Data Active Medications Acetaminophen (Acetaminophen 325 Mg Tablet) 650 mg PO Q6H PRN PRN Reason: Pain, Mild (Pain Scale 1-3) Last Admin: 06/24/21 09:40 Dose: 650 mg Documented by: VERO Albuterol Sulfate (Albuterol Sulfate 90 Mcg 8 Gm Inhaler) 4 puff INHALE RQ4H WHILE AWAKE [facility] Last Admin: 06/24/21 11:39 Dose: 4 puff Documented by: SULEMAN Atorvastatin Calcium (Atorvastatin Calcium 40 Mg Tablet) 40 mg PO BEDTIME [facility] Last Admin: 06/23/21 21:46 Dose: 40 mg Documented by: AMEE Benzonatate (Benzonatate 100 Mg Capsule) 100 mg PO TID [facility] Last Admin: 06/24/21 09:10 Dose: 100 mg Documented by: VERO Dexamethasone (Dexamethasone 6 Mg Tablet) 6 mg PO DAILY [facility] Last Admin: 06/24/21 09:09 Dose: 6 mg Documented by: VERO Dextrose (Dextrose 50 % 25 Gm/50 Ml Syringe) 25 gm IVPUSH Q15M PRN; Protocol PRN Reason: per Hypoglycemia Standing Ord. Enoxaparin Sodium (Enoxaparin Sodium 40 Mg/0.4 Ml Syringe) 40 mg SUBCUT Q24H [facility] Last Admin: 06/23/21 17:15 Dose: 40 mg Documented by: JD Glucose (Glucose Gel 15 Gm Gel..Gram.) 15 gm PO Q15M PRN; Protocol PRN Reason: per Hypoglycemia Standing Ord. Guaifenesin (Guaifenesin La 600 Mg Tab.Er.12h) 600 mg PO BID [facility] Last Admin: 06/24/21 09:10 Dose: 600 mg Documented by: VERO Insulin Human Lispro (Insulin Lispro 100 Unit/Ml 3 Ml Vial) 0 unit SUBCUT QIDACHS [facility]; Protocol Last Admin: 06/24/21 11:52 Dose: Not Given Documented by: VERO Non-Admin Reason: ate 25% of lunch Lisinopril (Lisinopril 10 Mg Tablet) 10 mg PO DAILY [facility]; Protocol Last Admin: 06/24/21 09:10 Dose: 10 mg Documented by: VERO Ondansetron HCl (Ondansetron Hcl 4 Mg/2 Ml Vial) 4 mg IVPUSH Q8H PRN PRN Reason: Nausea and Vomiting Sodium Chloride (0.9 % Sodium Chloride Flush 3 Ml Syringe) 3 ml IVFLUSH QSHIFT [facility] Last Admin: 06/24/21 09:10 Dose: 3 ml Documented by: VERO Tizanidine HCl (Tizanidine Hcl 4 Mg Tablet) 4 mg PO TID PRN PRN Reason: Muscle Spasm Labs CBC & Chem 7: 06/24/21 06:43 06/24/21 06:42 Labs: Laboratory Results - last 24 hr 06/23/21 06/23/21 06/23/21 13:24 13:24 13:24 MCV 82.0 MCH 29.7 MCHC 36.3 H RDW 12.3 Plt Count 172 MPV 9.5 Immature Gran % (Auto) 0.6 H Neut % (Auto) 68.7 Lymph % (Auto) 17.1 L [place] % (Auto) 12.4 H Eos % (Auto) 0.9 Baso % (Auto) 0.3 Lymph # (Auto) 1.1 L [place] # (Auto) 0.8 Eos # (Auto) 0.1 Baso # (Auto) 0.0 Abs Immat Gran (auto) 0.04 H Absolute Neuts (auto) 4.4 Absolute Nucleated RBC 0.000 Nucleated RBC % (auto) 0.0 Anion Gap 12 Estim Creat Clear Calc 149.0 Estimated GFR > 60 POC Glucose Random Glucose 117 H Lactic Acid Calcium 9.1 Magnesium 2.0 Ferritin Total Bilirubin 0.7 Direct Bilirubin 0.3 AST 22 D ALT 41 H Alkaline Phosphatase 88 D Lactate Dehydrogenase 139 Troponin I High Sens 4.5 C-Reactive Protein 3.14 H B-Natriuretic Peptide Total Protein 6.4 L Albumin 4.0 Procalcitonin COVID-19 (ANETA) COVID-19 Clin Com Influenza Type A (MARYJANE) Influenza Type B (MARYJANE) Influenza A & B Note 06/23/21 06/23/21 06/23/21 13:24 13:24 13:24 MCV MCH MCHC RDW Plt Count MPV Immature Gran % (Auto) Neut % (Auto) Lymph % (Auto) [place] % (Auto) Eos % (Auto) Baso % (Auto) Lymph # (Auto) [place] # (Auto) Eos # (Auto) Baso # (Auto) Abs Immat Gran (auto) Absolute Neuts (auto) Absolute Nucleated RBC Nucleated RBC % (auto) Anion Gap Estim Creat Clear Calc Estimated GFR POC Glucose Random Glucose Lactic Acid 1.0 Calcium Magnesium Ferritin 832 H Total Bilirubin Direct Bilirubin AST ALT Alkaline Phosphatase Lactate Dehydrogenase Troponin I High Sens C-Reactive Protein B-Natriuretic Peptide 25 Total Protein Albumin Procalcitonin COVID-19 (ANETA) COVID-19 Clin Com Influenza Type A (MARYJANE) Influenza Type B (MARYJANE) Influenza A & B Note 06/23/21 06/23/21 06/23/21 13:24 13:33 13:33 MCV MCH MCHC RDW Plt Count MPV Immature Gran % (Auto) Neut % (Auto) Lymph % (Auto) [place] % (Auto) Eos % (Auto) Baso % (Auto) Lymph # (Auto) [place] # (Auto) Eos # (Auto) Baso # (Auto) Abs Immat Gran (auto) Absolute Neuts (auto) Absolute Nucleated RBC Nucleated RBC % (auto) Anion Gap Estim Creat Clear Calc Estimated GFR POC Glucose Random Glucose Lactic Acid Calcium Magnesium Ferritin Total Bilirubin Direct Bilirubin AST ALT Alkaline Phosphatase Lactate Dehydrogenase Troponin I High Sens C-Reactive Protein B-Natriuretic Peptide Total Protein Albumin Procalcitonin 0.24 COVID-19 (ANETA) Positive A COVID-19 Clin Com See Note Influenza Type A (MARYJANE) Negative Influenza Type B (MARYJANE) Negative Influenza A & B Note See Note 06/23/21 06/24/21 06/24/21 21:44 06:42 06:43 MCV 82.3 MCH 29.6 MCHC 35.9 RDW 12.3 Plt Count 198 MPV 9.9 Immature Gran % (Auto) Neut % (Auto) Lymph % (Auto) [place] % (Auto) Eos % (Auto) Baso % (Auto) Lymph # (Auto) [place] # (Auto) Eos # (Auto) Baso # (Auto) Abs Immat Gran (auto) Absolute Neuts (auto) Absolute Nucleated RBC 0.000 Nucleated RBC % (auto) 0.0 Anion Gap 11 L Estim Creat Clear Calc 147.1 Estimated GFR > 60 POC Glucose 232 H Random Glucose 160 H D Lactic Acid Calcium 8.9 Magnesium Ferritin Total Bilirubin Direct Bilirubin AST ALT Alkaline Phosphatase Lactate Dehydrogenase Troponin I High Sens C-Reactive Protein B-Natriuretic Peptide Total Protein Albumin Procalcitonin COVID-19 (ANETA) COVID-19 Clin Com Influenza Type A (MARYJANE) Influenza Type B (MARYJANE) Influenza A & B Note 06/24/21 11:25 MCV MCH MCHC RDW Plt Count MPV Immature Gran % (Auto) Neut % (Auto) Lymph % (Auto) [place] % (Auto) Eos % (Auto) Baso % (Auto) Lymph # (Auto) [place] # (Auto) Eos # (Auto) Baso # (Auto) Abs Immat Gran (auto) Absolute Neuts (auto) Absolute Nucleated RBC Nucleated RBC % (auto) Anion Gap Estim Creat Clear Calc Estimated GFR POC Glucose 167 H Random Glucose Lactic Acid Calcium Magnesium Ferritin Total Bilirubin Direct Bilirubin AST ALT Alkaline Phosphatase Lactate Dehydrogenase Troponin I High Sens C-Reactive Protein B-Natriuretic Peptide Total Protein Albumin Procalcitonin COVID-19 (ANETA) COVID-19 Clin Com Influenza Type A (MARYJANE) Influenza Type B (MARYJANE) Influenza A & B Note Assessment and Plan (1) COVID-19: Status: Acute Plan 61M presented with weakness, sob due to covid 19 covid 19 infection tested positive 06/15/21, unlikely to benefit from antivirals complicated by acute exacerbation of mild intermittent asthma decadron montiro inflammatory markers DM norrmally diet controlled ISS MIGUELITO cpap non compliant obesity weight loss (increased risk with covid) dvt prophylaxis - lovenox reason for continued hospitalization: given risk factors of asthma, obesity and DM will continue to monitor closely for progression to hypoxic respiratory failure for covid Quality Stroke Does the patient have a stroke diagnosis?: No VTE Prior VTE?: No VTE Risk Level:: Medical - moderate - high VTE Device Contraindication: Treatment Not Indicated VTE Drug Contraindication: N/A - Med Ordered
[2021-06-24 15:57] LABS: Glucose, Whole Blood 189 mg/dL (60-115)
[2021-06-24] MEDS: Enoxaparin Sodium 40 MG/0.4 ML SYRINGE SUBCUT (16:17)
[2021-06-24] MEDS: Insulin Lispro 100 UNIT/ML 3 ML VIAL SUBCUT ×2 (16:17→20:51)
[2021-06-24 19:18] LABS: Glucose, Whole Blood 196 mg/dL (60-115)
[2021-06-24] MEDS: Atorvastatin Calcium 40 MG TABLET PO (20:50)
[2021-06-25 03:19] VITALS: BP 154/91; PULSE 82; RESP 18; TEMP 36.7; O2SAT 94
[2021-06-25 06:32] LABS: Hematocrit 39.6 % (42.0-52.0); Hemoglobin 14.1 g/dl (14.0-18.0); Mean Corpuscular HGB Conc 35.6 g/dl (31.0-36.0); Mean Corpuscular Hemoglobin 29.7 pg (27.0-33.0); Mean Corpuscular Volume 83.5 fL (80.0-98.0); Mean Platelet Volume 9.3 fL (9.4-12.4); Platelet Count 215 X10*3/uL (160-400); Red Blood Count 4.74 X10*6/uL (4.60-5.80); Red Cell Distribution Width 12.6 % (11.0-16.0); White Blood Count 9.4 X10*3/uL (4.8-10.8)
[2021-06-25 06:54] LABS: Anion Gap 10 (12-20); Blood Urea Nitrogen 16 mg/dL (9-16); C Reactive Protein 0.75 mg/dL (< or = 0.50); Calcium 9.2 mg/dL (8.4-10.2); Carbon Dioxide 25 mmol/L (22-29); Chloride 108 mmol/L (96-108); Estimated Glomerular Filt Rate > 60; Glucose Fasting 141 mg/dL (60-99); Potassium 4.4 mmol/L (3.3-5.1); Sodium 139 mmol/L (135-145)
[2021-06-25 07:51] VITALS: PULSE 82; RESP 20; O2SAT 94
[2021-06-25] MEDS: Albuterol Sulfate 90 MCG 8 GM INHALER 4 PUFF INHALE ×2 (07:51→11:15)
[2021-06-25 07:52] VITALS: BP 138/90; PULSE 84; RESP 18; TEMP 36.6; O2SAT 98
[2021-06-25 07:55] LABS: Glucose, Whole Blood 145 mg/dL (60-115)
[2021-06-25] MEDS: Benzonatate 100 MG CAPSULE PO (10:23)
[2021-06-25] MEDS: guaiFENesin LA 600 MG TAB.ER.12H PO (10:23)
[2021-06-25] MEDS: dexAMETHasone 6 MG TABLET PO (10:23)
[2021-06-25] MEDS: lisinopriL 10 MG TABLET PO (10:23)
[2021-06-25] MEDS: 0.9 % Sodium Chloride Flush 3 ML SYRINGE IVFLUSH (10:24)
--- NOTE | 2021-06-25 10:39 | P.DS_ITS ---
DS: Providers Provider Date of Service: 06/25/21 Date of admission: 06/23/21 16:10 Primary care physician: Shannon Jones MD DS: Diagnosis Discharge Diagnosis (1) COVID-19: Status: Acute DS: Summary Hospital Course Hospital Course: from initial hpi: Chief Complaint: SOB, weakness A 61 years old male with PMH of Asthma, Hep C, HLD, MIGUELITO, PVD, Diabetes among others who presents to the hospital with 1 week symptoms of SOB, weakness and decrease PO intake after testing positive for covid on 06/15. The patient report that his symptoms started as upper respiratory symptoms which worsened over the last week to shortness of breath, coughing, muscle aches and increased weakness.? His oral intake significantly decreased and today felt he cannot tolerated anymore so he decided to come to the hospital for further evaluation.? In the emergency he was found to have above 90 saturation on room.? CXR showed bilateral lung opacities with elevated CRP and ferritin.? Admitted for further evaluation and treatment. hospital course: Patient was admitted for significant symptoms of weakness and shortness of breath due to COVID, without hypoxia, but with high risk Comorbidities of obesity, mild intermittent asthma, diabetes, MIGUELITO. Due to acute exacerbation mild intermittent asthma patient was treated with Decadron. His inflammatory markers decreased over next couple days, patient noted subjective improvement in his symptoms. He will be discharged home with 3 more days of oral Decadron. Time Spent with Patient Time attestation: Total time spent providing and/or coordinating discharge services: Discharge coordination time: Greater than 30 minutes Quality: Safe Use of Opioids Does Pt have an Active Cancer Diagnosis on the Problem List?: No Quality: Stroke Does the patient have a stroke diagnosis?: No Physical Exam 2 Vital Signs: Vital Signs: Last Vital Signs Temp 97.8 F 06/25/21 07:52 Pulse 84 06/25/21 07:52 Resp 18 06/25/21 07:52 BP 138/90 H 06/25/21 07:52 Pulse Ox 98 06/25/21 07:52 BMI result Body Mass Index 31.7 General: AO X 3, no acute distress Resp: CTA bilateral, no accessory muscles used CVS: S1,S2,RRR GI: soft, non tender, non distended Neuro: motor grossly intact, alert Psych: appropriate affect, appropriate insight DS: Data Data Completed and Pending Labs on day of discharge: Laboratory Results - last 24 hr 06/24/21 06/24/21 06/24/21 11:25 15:52 19:14 WBC RBC Hgb Hct MCV MCH MCHC RDW Plt Count MPV Absolute Nucleated RBC Nucleated RBC % (auto) Sodium Potassium Chloride Carbon Dioxide Anion Gap BUN Creatinine Estim Creat Clear Calc Estimated GFR POC Glucose 167 H 189 H 196 H Fasting Glucose Calcium C-Reactive Protein 06/25/21 06/25/21 06/25/21 06:14 06:14 07:48 WBC 9.4 RBC 4.74 Hgb 14.1 Hct 39.6 L MCV 83.5 MCH 29.7 MCHC 35.6 RDW 12.6 Plt Count 215 MPV 9.3 L Absolute Nucleated RBC 0.000 Nucleated RBC % (auto) 0.0 Sodium 139 Potassium 4.4 Chloride 108 Carbon Dioxide 25 Anion Gap 10 L BUN 16 Creatinine 0.74 Estim Creat Clear Calc 155.0 Estimated GFR > 60 POC Glucose 145 H Fasting Glucose 141 H Calcium 9.2 C-Reactive Protein 0.75 H Preliminary micro results at discharge 06/23/21 13:33 Blood Culture - Preliminary Blood - Venous No growth after 24 hours. 06/23/21 13:24 Blood Culture - Preliminary Blood - Venous No growth after 24 hours. Discharge Plan Discharge Patient Disposition: Home, Self-Care Discharge Diagnosis: covid Referrals: Shannon Jones MD [Primary Care Provider] - 1 Week Discharge Medications: New dexamethasone 6 mg Tablet 6 mg PO DAILY Qty: 3 0RF Continued lisinopril 10 mg tablet 10 mg PO DAILY 30 Days Qty: 90 2RF (DME) comp.stocking,thigh,long,large Misc See Rx Instructions .Route Qty: 2 3RF Rx Instructions: As directed 20-30 mm HG simvastatin 5 mg tablet 5 mg PO BEDTIME Qty: 90 2RF ibuprofen 800 mg tablet 800 mg PO Q8H PRN (Reason: pain) Qty: 20 0RF Discharge Orders: Discharge Order (Routine); Ordered 06/25/21 Ordered By: Bubba De Paz Diet: advance to usual diet Activity on Discharge: As tolerated Stand Alone Forms: Patient Portal Discharge page Care Plan Goals: recovery Health Concerns: covid Plan of Treatment: 3 more days decadron Assessment: see above
[2021-06-25 11:16] VITALS: PULSE 80; RESP 20; O2SAT 96
[2021-06-25 11:27] VITALS: BP 139/89; PULSE 87; RESP 18; TEMP 36.6; O2SAT 92
[2021-06-25 11:32] LABS: Glucose, Whole Blood 121 mg/dL (60-115)
--- NOTE | 2021-06-25 11:47 | MHC.CM.PN ---
Male 61 dx covid+ He is discharged today home with family. No services ordered. Patient has arranged for transportation home.
== END 2021-06-25 13:14 | disposition home or self-care (01) | DRG 137 ==
LOC: HO.ED 15:43 → HO.EDOVER 16:21 → HO.IMC 18:41
PROVIDERS: Physician Assistant; Admitting Provider Student in an Organized Health Care Education/Training Program; Emergency Provider Emergency Medicine; PCP Internal Medicine; Visit Provider Internal Medicine
DX: U07.1 COVID-19 (principal); E11.51 Type 2 diabetes mellitus with diabetic peripheral angiopathy without gangrene; J45.21 Mild intermittent asthma with (acute) exacerbation; E78.5 Hyperlipidemia, unspecified; G47.33 Obstructive sleep apnea (adult) (pediatric); E66.9 Obesity, unspecified; Z68.31 Body mass index [BMI] 31.0-31.9, adult; Z91.19 Patient's noncompliance with other medical treatment and regimen; Z86.19 Personal history of other infectious and parasitic diseases; Z86.010 Personal history of colon polyps; Z87.891 Personal history of nicotine dependence; Z79.899 Other long term (current) drug therapy
CPT/HCPCS: 36415; 71045; 80048; 80076; 82728; 82947; 83605; 83615; 83735; 83880; 84145; 84484; 85025; 85027; 86140; 87040; 87502; 87635; 93005; 94640; 94644; 96365; 96366; 96367; 96375; 99285; J0456; J0696; J1100; J1650; J3475; J8540

== ENCOUNTER 2021-07-15 11:21 | Outpatient (REF) | payer OTHER, SELFPAY ==
--- NOTE | ~2021-07-15 | XR_ITS ---
EXAMINATION: XR CHEST CLINICAL INFORMATION: COVID infection. COMPARISON: Previous chest x-ray most recent May 2021 and March 2018. TECHNIQUE: 2 views of the chest were obtained. FINDINGS: The cardiac and mediastinal contours are normal. There is new linear subsegmental atelectasis at the left lung base. Otherwise bilateral infiltrates have resolved. There is no pleural effusion or pneumothorax. There are degenerative changes of the spine. XR/XR chest 2V IMPRESSION: New subsegmental atelectasis at the left lung base. The lungs are otherwise clear.
== END 2021-07-15 11:22 | disposition home or self-care (01) ==
LOC: HO.XRAY 11:21
PROVIDERS: PCP Internal Medicine; Visit Provider Internal Medicine
DX: U07.1 COVID-19 (principal)
CPT/HCPCS: 71046

== ENCOUNTER 2022-03-10 11:33 | Outpatient (REF) | payer OTHER, SELFPAY ==
[2022-03-10 12:13] LABS: Basophils Absolute Auto 0.1 X10*3/uL (0.0-0.2); Basophils Percent Auto 0.7 % (0-2); Eosinophils Absolute Auto 0.2 X10*3/uL (0.0-0.4); Eosinophils Percent Auto 2.3 % (0-4); Hematocrit 46.3 % (42.0-52.0); Hemoglobin 16.3 g/dl (14.0-18.0); Imm Gran Abs Auto 0.03 X10*3/uL (0.00-0.03); Imm Gran Pct Auto 0.4 % (0.0-0.4); Lymphocytes Absolute Auto 1.8 X10*3/uL (1.2-4.9); Lymphocytes Percent Auto 26.5 % (20-40); MANUAL DIFF FLAG NO; Mean Corpuscular HGB Conc 35.2 g/dl (31.0-36.0); Mean Corpuscular Hemoglobin 30.1 pg (27.0-33.0); Mean Corpuscular Volume 85.4 fL (80.0-98.0); Mean Platelet Volume 9.6 fL (9.4-12.4); Monocytes Absolute Auto 0.6 X10*3/uL (0.1-1.2); Monocytes Percent Auto 8.2 % (2-11); Neutrophils Absolute Auto 4.3 x10*3/uL (2.0-8.3); Neutrophils Percent Auto 61.9 % (45-73); Platelet Count 190 X10*3/uL (160-400); Red Blood Count 5.42 X10*6/uL (4.60-5.80); Red Cell Distribution Width 12.5 % (11.0-16.0); White Blood Count 6.9 X10*3/uL (4.8-10.8)
[2022-03-10 13:19] LABS: Creatinine Urine 236.49 mg/dL; Microalbum/Creatinine Ratio Ur 4.2 ug/mg cr
[2022-03-10 14:44] LABS: Estimated Average Glucose 120 mg/dL; Hemoglobin A1c % 5.8 %
[2022-03-10 14:53] LABS: Alanine Aminotransferase 36 U/L (0-40); Albumin Level 4.3 g/dL (3.5-5.0); Alkaline Phosphatase 75 U/L (39-117); Anion Gap 12 (12-20); Aspartate Amino Transferase 18 U/L (5-37); Bilirubin Total 0.5 mg/dL (0.0-1.0); Blood Urea Nitrogen 19 mg/dL (9-16); Calcium 9.8 mg/dL (8.4-10.2); Carbon Dioxide 27 mmol/L (22-29); Chloride 105 mmol/L (96-108); Cholesterol 187 mg/dL; Estimated Glomerular Filt Rate > 60; Glucose Random 134 mg/dL (60-115); HDL Cholesterol 29 mg/dL; LDL Cholesterol Calculated 131 mg/dl; Sodium 139 mmol/L (135-145); Total Protein 6.4 g/dL (6.5-8.0); Triglycerides 136 mg/dL
[2022-03-10 14:59] LABS: Free T4 (Free Thyroxine) 0.95 ng/dL (0.71-1.85); Prostate Specific Antigen Scr 0.73 ng/mL (<0.05-4.0); Thyroid Stimulating Hormone 2.31 uIU/mL (0.32-4.0)
[2022-03-10 15:11] LABS: Folate 12.1 ng/mL (> or = 4.0); Vitamin B12 288 pg/mL (200-900)
== END 2022-03-10 11:34 | disposition home or self-care (01) ==
LOC: HO.LAB 11:33
PROVIDERS: PCP Internal Medicine; Visit Provider Internal Medicine
DX: Z12.5 Encounter for screening for malignant neoplasm of prostate (principal); E11.65 Type 2 diabetes mellitus with hyperglycemia; E78.00 Pure hypercholesterolemia, unspecified
CPT/HCPCS: 36415; 80053; 80061; 82043; 82607; 82746; 83036; 84153; 84439; 84443; 85025

== ENCOUNTER 2022-08-12 09:22 | Outpatient (REF) | payer OTHER, SELFPAY ==
--- NOTE | ~2022-08-12 | US_ITS ---
EXAMINATION: US COMPLETE ABDOMEN WITH LIVER ELASTOGRAPHY CLINICAL INFORMATION: Cirrhosis COMPARISON: None available. TECHNIQUE: Real-time imaging of the abdominal viscera. Noninvasive ultrasound liver fibrosis assessment is performed using Mehran ElastPQ point quantification shear wave elastography (2D-SWE) with a C5-2 MHz transducer. Multiple elastography samples are obtained. FINDINGS: PANCREAS: Not well-visualized due to bowel gas. ABDOMINAL AORTA: The proximal, middle, and distal aortic segments are normal in caliber. INFERIOR VENA CAVA: Visualized portions are normal. LIVER: Enlarged echogenic liver probably representing fatty infiltration. Normal liver contour. No focal lesion or intrahepatic biliary duct dilatation. The right lobe measures 24 cm in length. The left lobe measures 16 cm in length. Portal flow is normal/hepatopedal Shear wave liver elastography median stiffness is 1.9 m/s (reference: normal median stiffness is 1.3 m/s or less). IQR/median stiffness to assess sampling precision is 0.13 (reference: good quality data set is IQR/median stiffness of 0.15 or less). GALLBLADDER: Stones, largest measuring 1.5 x 0.6 x 1.1 cm. The gallbladder is otherwise normal. COMMON BILE DUCT: Normal in caliber measuring 0.6 cm in diameter. RIGHT KIDNEY: Small cysts, largest measuring 1.4 cm in the lower pole No hydronephrosis. No renal calculi or focal parenchymal lesions. The kidney measures 13 cm in maximum dimension. LEFT KIDNEY: 2 cm cyst in the lower pole. No hydronephrosis. No renal calculi or focal parenchymal lesions. The kidney measures 14 cm in maximum dimension. SPLEEN: Slightly enlarged. The spleen measures 15 cm in maximum dimension. FREE FLUID: None. US/US abdomen comp w elastography IMPRESSION: 1. Impression : Enlarged echogenic liver probably representing fatty infiltration. Enlarged spleen. Gallstones. Bilateral renal cysts. Limited visualization of the pancreas. 2. Liver elastography: Adequate liver sampling. In the absence of other known clinical signs, rules out compensated advanced chronic liver disease. REFERENCE: Society of Radiologists in Ultrasound Liver Stiffness Thresholds (2020): LIVER STIFFNESS THRESHOLDS: *Liver Stiffness equal or less than 1.3 m/s: High probability of being normal. *Liver Stiffness less than 1.7 m/s: In the absence of other known clinical signs, rules out compensated advanced chronic liver disease. *Liver Stiffness 1.7-2.1 m/s: Suggestive of compensated advanced chronic liver disease but need further test for confirmation. *Liver Stiffness over 2.1 m/s: Rules in compensated advanced chronic liver disease. *Liver Stiffness over 2.4 m/s: Suggestive of clinically significant portal hypertension. QUALITY OF DATA SET: *IQR/Median value equal or less than 0.15 implies a quality data set. *IQR/Median value over 0.15 implies a poor quality data set. SIGNIFICANT CHANGE FROM PRIOR EXAM: Significant change if liver stiffness measurement is 10% or greater from prior exam. OTHER CONSIDERATIONS: The stage of liver fibrosis may be overestimated in the setting of acute hepatitis, liver inflammation, elevated liver function tests, hepatic vascular congestion, obstructive cholestasis, non-fasting state, and infiltrative diseases such as amyloidosis and lymphoma. In some patients with NAFLD, the liver stiffness thresholds for compensated advanced chronic liver disease may be lower. In causes other than viral hepatitis and NAFLD, liver stiffness thresholds are not well established.
[2022-08-12 11:16] LABS: Alanine Aminotransferase 28 U/L (0-40); Albumin Level 4.2 g/dL (3.5-5.0); Alkaline Phosphatase 76 U/L (39-117); Anion Gap 13 (12-20); Aspartate Amino Transferase 14 U/L (5-37); Bilirubin Total 0.8 mg/dL (0.0-1.0); Blood Urea Nitrogen 17 mg/dL (9-16); Calcium 9.2 mg/dL (8.4-10.2); Carbon Dioxide 25 mmol/L (22-29); Chloride 108 mmol/L (96-108); Cholesterol 173 mg/dL; Estimated Glomerular Filt Rate > 60; Glucose Random 127 mg/dL (60-115); HDL Cholesterol 29 mg/dL; LDL Cholesterol Calculated 119 mg/dl; Potassium 4.1 mmol/L (3.3-5.1); Sodium 142 mmol/L (135-145); Total Protein 6.7 g/dL (6.5-8.0); Triglycerides 127 mg/dL
[2022-08-12 11:29] LABS: Estimated Average Glucose 114 mg/dL; Hemoglobin A1c % 5.6 %
== END 2022-08-12 09:23 | disposition home or self-care (01) ==
LOC: HO.US 09:22
PROVIDERS: PCP Internal Medicine; Visit Provider Internal Medicine Gastroenterology
DX: E11.65 Type 2 diabetes mellitus with hyperglycemia (principal); E78.00 Pure hypercholesterolemia, unspecified; K74.60 Unspecified cirrhosis of liver
CPT/HCPCS: 36415; 76705; 76981; 80053; 80061; 83036

== ENCOUNTER 2022-08-17 07:33 | Day surgery (SDC) | payer OTHER, SELFPAY ==
--- NOTE | 2022-08-16 11:56 | HO.ANESPROP2 ---
HPI - Anesthesia Eval Consult details Narrative: 62yo M for Upper Endoscopy and Colonoscopy PENDING SALE TO [facility] Active Problems Active Problems: All Active Problems (Updated 08/16/22 @ 10:33 by Kiana Ramirez RN) HTN (hypertension) (Acute) Umbilical hernia (Acute) Ventral hernia (Acute) Diarrhea (Acute) Erectile dysfunction (Acute) Peripheral vascular disease (Acute) Annual physical exam (Acute) Low Back Pain (Acute) Constipation (Acute) Asthma (Acute) Lumbar degenerative disc disease (Acute) Verruca (Acute) Tubular adenoma of colon (Acute) COVID-19 virus infection (Acute) Tubular adenoma of colon (Acute) Type 2 diabetes mellitus with hyperglycemia (Acute) Hypercholesterolemia (Acute) Asthma (Acute) Obstructive sleep apnea (Acute) Obesity (BMI 30-39.9) (Acute) Past Medical History Medical History (Updated 08/16/22 @ 10:33 by Kiana Ramirez RN) Asthma Back pain Cholelithiasis COVID-19 virus infection Fatty liver Gallstone Hepatitis C Hypercholesterolemia Obesity (BMI 30-39.9) Obstructive sleep apnea Peripheral neuropathy Peripheral vascular disease Tubular adenoma of colon Type 2 diabetes mellitus with hyperglycemia Umbilical hernia Venous stasis Vitamin D deficiency Family History Family History (Updated 06/10/22 @ 14:34 by Alexia Liao CMA) Father No problems noted. Mother Cancer Maternal Aunt Colon cancer Sister Substance abuse Family history of problems with anesthesia: No Surgical History Surgical History (Updated 08/16/22 @ 10:33 by Kiana Ramirez RN) H/O colonoscopy H/O hernia repair H/O wrist surgery History of Problems with Anesthesia: No Social History Social History Household Members: Significant Other and Family Household Members Other:: and sister in law Housing: House Do you presently have visiting nurse or other home services: No Alcohol intake: never Patient Tobacco Use Status: Former Tobacco user Tobacco use type: Cigarette Years Smoked: 1980 e-Cigarette/Vaping Use: Never Used Second Hand Smoke Exposure: Yes Substance Use Type: Marijuana service: No Current occupational status: employed Current occupational exposures/hazards: No Cognitive needs: No Hearing needs: No Vision needs: Yes Meds Allergies Allergy/AdvReac Type Severity Reaction Status Date / Time No Known Allergies Allergy Verified 06/10/22 14:34 [No Known Allergies*] Exam Exam Date and Time: August 16, 2022 1156 Pertinent Lab Results Pertinent Lab Results: Laboratory Tests 03/10/22 08/12/22 11:39 10:13 WBC 6.9 Hgb 16.3 Hct 46.3 Plt Count 190 Sodium 142 Potassium 4.1 Chloride 108 Carbon Dioxide 25 BUN 17 H Creatinine 0.85 Assessment and Plan Assessment Anesthesia Assessment: Chart Reviewed Final Anesthetic Review Family History of Problems with Anesthesia: No History of Problems with Anesthesia: No
[2022-08-17 07:51] VITALS: BMI 34.1
[2022-08-17 07:57] VITALS: BP 195/108; PULSE 75; RESP 18; TEMP 36.1; O2SAT 97
[2022-08-17] MEDS: Lactated Ringers 1,000 ML 100 ML IVCONT (08:25)
--- NOTE | 2022-08-17 08:39 | HO.ANESPROP2 ---
[facility] Active Problems Active Problems: All Active Problems (Updated 08/16/22 @ 10:33 by Kiana Ramirez RN) HTN (hypertension) (Acute) Umbilical hernia (Acute) Ventral hernia (Acute) Diarrhea (Acute) Erectile dysfunction (Acute) Peripheral vascular disease (Acute) Annual physical exam (Acute) Low Back Pain (Acute) Constipation (Acute) Asthma (Acute) Lumbar degenerative disc disease (Acute) Verruca (Acute) Tubular adenoma of colon (Acute) COVID-19 virus infection (Acute) Tubular adenoma of colon (Acute) Type 2 diabetes mellitus with hyperglycemia (Acute) Hypercholesterolemia (Acute) Asthma (Acute) Obstructive sleep apnea (Acute) Obesity (BMI 30-39.9) (Acute) Past Medical History Medical History Asthma Back pain Cholelithiasis COVID-19 virus infection Fatty liver Gallstone Hepatitis C Hypercholesterolemia Obesity (BMI 30-39.9) Obstructive sleep apnea Peripheral neuropathy Peripheral vascular disease Tubular adenoma of colon Type 2 diabetes mellitus with hyperglycemia Umbilical hernia Venous stasis Vitamin D deficiency Functional capacity: independent ambulation Family History Family History Father No problems noted. Mother Cancer Maternal Aunt Colon cancer Sister Substance abuse Family history of problems with anesthesia: No Surgical History Surgical History H/O colonoscopy H/O hernia repair H/O wrist surgery History of Problems with Anesthesia: No Social History Social History Household Members: Significant Other and Family Household Members Other:: and sister in law Housing: House Do you presently have visiting nurse or other home services: No Alcohol intake: never Patient Tobacco Use Status: Former Tobacco user Quit Date: 1980 Tobacco use type: Cigarette Years Smoked: 1980 e-Cigarette/Vaping Use: Never Used Second Hand Smoke Exposure: Yes Substance Use Type: Marijuana Are you DNR?: No Advance Directives: No Advance Directives Information Provided: Yes service: No Current occupational status: employed Current occupational exposures/hazards: No Cognitive needs: No Hearing needs: No Vision needs: Yes Meds Allergies Allergy/AdvReac Type Severity Reaction Status Date / Time No Known Allergies Allergy Verified 06/10/22 14:34 [No Known Allergies*] Active Medications: Current Medications Albuterol Sulfate (Albuterol Sulfate (0.083%) 2.5 Mg/3 Ml Vial.Neb) 2.5 mg INHALE ONCE PRN PRN Reason: Shortness of Breath/Wheezing Lactated Ringer's (Lr) 1,000 mls @ 100 mls/hr IVCONT .Q10H LAINE Last Admin: 08/17/22 08:25 Dose: 100 mls/hr Sodium Biphosphate/Sodium Phosphate (Sodium Phosphate,Hamlin-Dibasic 133 Ml Enema) 133 ml MD ONCE PRN PRN Reason: Poor Colonoscopy Prep Results Sodium Biphosphate/Sodium Phosphate (Sodium Phosphate,Hamlin-Dibasic 133 Ml Enema) 133 ml MD ONCE LAINE Exam Exam Date and Time: August 17, 2022 0839 Height,Weight and Vital Signs: Height 6 ft 7 in Weight 137.438 kg Last Vital Signs Temp 97.0 F 08/17/22 07:57 Pulse 75 08/17/22 07:57 Resp 18 08/17/22 07:57 BP 195/108 H 08/17/22 07:57 Pulse Ox 97 08/17/22 07:57 O2 Del Method Room Air 08/17/22 07:57 Airway Mallampati Class: III TM Dist: >3cm Heart: RRR Lungs: CTA Assessment and Plan Final Anesthetic Review Family History of Problems with Anesthesia: No History of Problems with Anesthesia: No ASA Class: III Final Preanesthetic Review: Meds/Allgs Chart Reviewed, Consent Obtained/Reviewed and Anes Risks/Benef Reviewed Patient Risk: Intermediate Procedure Risk: Low Anesthetic Plan Anesthetic Plan: MAC: Disposition: Standard PACU
[2022-08-17] MEDS: Sodium Phosphate,Mono-Dibasic 133 ML ENEMA PR ×2 (08:40)
[2022-08-17 09:00] VITALS: PULSE 82; RESP 16; O2SAT 95
[2022-08-17] MEDS: Albuterol Sulfate (0.083%) 2.5 MG/3 ML VIAL.NEB INHALE (09:00)
--- NOTE | 2022-08-17 09:20 | MHC.SHP ---
Pre-Procedural Eval Section A Date of Service: 08/17/22 The patient is an INPATIENT: No Changes since office visit: No Cold of Flu in the past 2 weeks, No New Medical Problems, No Changes in Medication and No Patient answered all questions The History & Physical has been completed within 30 days and I have reviewed it.: Yes Section B Chief Complaint: Unspecified cirrhosis of liver,screening Allergies: Allergies Allergy/AdvReac Type Severity Reaction Status Date / Time No Known Allergies Allergy Verified 06/10/22 14:34 [No Known Allergies*] Plan I have reviewed the history and physical and performed a pertinent physical examination on my patient. No changes have occurred unless specified. Time Spent With Patient Time: Total time managing care of this patient today ____ minutes.
--- NOTE | 2022-08-17 09:30 | OP_ITS ---
DATE OF SERVICE: 08/17/2022 SURGEON: Angel Santos MD INDICATIONS: Colon cancer screening. PREOPERATIVE DIAGNOSIS: POSTOPERATIVE DIAGNOSIS: PROCEDURE PERFORMED: Colonoscopy to the cecum with snare polypectomy. ESTIMATED BLOOD LOSS: COMPLICATIONS: ANESTHESIA: Monitored anesthesia care. ASSISTANTS: SPECIMENS: DESCRIPTION OF PROCEDURE: A history and physical was performed. The risks and benefits of the procedure were explained to the patient. Informed consent was obtained. The patient was placed in the left lateral decubitus position. A digital rectal exam was performed and was found to be normal. The Olympus pediatric video colonoscope was introduced into the rectum and advanced to the cecum without difficulty. The cecum was identified by transillumination, palpation, and identification of ileocecal valve. Examination was performed. The scope was removed. He tolerated the procedure well and was returned to the recovery area in stable condition. FINDINGS: The terminal ileum was not examined. The visualized colonic mucosa was normal. The quality of the prep was good. Abdominal wall pressure was used to assist in advancement of the scope. A single polyp measuring approximately 8 to 9 mm was identified at the hepatic flexure. This was removed with a snare and recovered via suction. No other polyps were identified. Retroflexed examination showed some small internal hemorrhoids. IMPRESSION: Colon polyp. RECOMMENDATION: Follow up the biopsy results. MD ROSENDA Eisenberg/TAYLOR / [id number]
--- NOTE | 2022-08-17 10:07 | PM.OP ---
Brief Operative Note Date of Service: 08/17/22 Pre-op diagnosis: cirrhosis screening Post-op diagnosis: same Procedure: egd colonoscopy Surgeon: Angel Santos Anesthesia: MAC Was an Marketing Communications Leader used for this Procedure?: No Estimated blood loss (mL): 5 Pathology: other Condition: stable Disposition: PACU
[2022-08-17 10:13] VITALS: BP 183/103; PULSE 93; RESP 16; TEMP 36.3; O2SAT 94
[2022-08-17 10:28] VITALS: BP 187/104; PULSE 79; TEMP 36.3; O2SAT 94
--- NOTE | 2022-08-17 10:32 | HO.POSTANES ---
Post Anesthesia Evaluation Post Anesthesia Evaluation Date of Service: 08/17/22 Vital Signs: Vital Signs Temp Pulse Resp BP Pulse Ox O2 Del Method 08/17/22 10:13 97.3 F 93 16 183/103 H 94 Room Air 08/17/22 09:00 82 16 08/17/22 07:57 97.0 F 75 18 195/108 H 97 Room Air Anesthesia: Monitored Mental Status: Awake Pain Control: Satisfactory Nausea/Vomiting: None Hydration: Adequate Anesthesia-Related Issues: No Anes. Related Issues
--- NOTE | 2022-08-17 10:39 | OP_ITS ---
DATE OF SERVICE: 08/17/2022 SURGEON: Angel Santos MD INDICATIONS: 1. Cirrhosis. 2. Colon cancer screening. PREOPERATIVE DIAGNOSIS: POSTOPERATIVE DIAGNOSIS: PROCEDURE PERFORMED: ESTIMATED BLOOD LOSS: COMPLICATIONS: ANESTHESIA: Monitored anesthesia care. ASSISTANTS: SPECIMENS: PROCEDURES PERFORMED: Upper endoscopy with biopsy, colonoscopy to the terminal ileum with biopsy and snare polypectomy. DESCRIPTION OF PROCEDURE: A history and physical were performed. The risks and benefits of the procedure were explained to the patient. Informed consent was obtained. The patient was placed in the left lateral decubitus position. The Olympus video gastroscope was introduced into the esophagus, stomach, and duodenum. Examination was performed, and the scope was removed. He was repositioned for colonoscopy. A digital rectal exam was performed and was found to be normal. The Olympus pediatric video colonoscope was introduced into the rectum and advanced to the cecum without difficulty. The cecum was identified by transillumination, palpation, and identification of ileocecal valve. Examination was performed and the scope was removed. He tolerated both procedures well and was returned to recovery in stable condition. FINDINGS: Upper endoscopy: 1. Esophagus. The esophagus was normal. No varices were present. 2. Stomach. The stomach showed focal patchy gastritis involving the body and fundus. Antral biopsies were obtained to rule out H. pylori. No gastric varices were identified. There was no portal hypertensive gastropathy. 3. Duodenum. The bulb and second portion were normal. Colonoscopy: The terminal ileum was examined and appeared normal. The visualized colonic mucosa was normal. The quality of the prep was fair with some retained, residual undigested food, in the right colon and proximal transverse colon. This was washed and suctioned. There were 2 polyps in the rectum measuring approximately 8 mm each that were removed with a hot snare. A third polyp located at 70 cm, measuring less than 5 mm was removed with the biopsy forceps. There was mild sigmoid diverticulosis. Retroflexed examination showed small internal hemorrhoids. IMPRESSION: Colon polyps, gastritis. RECOMMENDATIONS: Follow up the biopsy results. MD ROSENDA Eisenberg/TAYLOR / [id number]
[2022-08-17 10:43] VITALS: BP 154/100; PULSE 80; RESP 16; TEMP 36.3; O2SAT 95
== END 2022-08-17 11:09 | disposition home or self-care (01) ==
PROVIDERS: PCP Internal Medicine; Visit Provider Internal Medicine Gastroenterology
PROC: (CPT 45385; principal; 2022-08-17 08:50)
DX: Z12.11 Encounter for screening for malignant neoplasm of colon (principal); Z86.010 Personal history of colon polyps; K63.5 Polyp of colon; K62.1 Rectal polyp; K74.60 Unspecified cirrhosis of liver; K76.0 Fatty (change of) liver, not elsewhere classified; Z86.19 Personal history of other infectious and parasitic diseases; K29.70 Gastritis, unspecified, without bleeding; J45.909 Unspecified asthma, uncomplicated; G47.33 Obstructive sleep apnea (adult) (pediatric); I87.8 Other specified disorders of veins; I10 Essential (primary) hypertension; Z87.891 Personal history of nicotine dependence; Z79.899 Other long term (current) drug therapy
CPT/HCPCS: 45385; 45380; 43239; 88305; 88342; 94640

== ENCOUNTER 2022-09-16 15:31 | Outpatient (AMB) | payer OTHER, SELFPAY ==
[2022-09-16 15:32] VITALS: BP 156/82; PULSE 65; O2SAT 97; BMI 33.7
--- NOTE | 2022-09-16 15:32 | A.OFFPC_ITS ---
Vital Signs 09/16/22 15:32 09/16/22 15:55 Height 6 ft 7 in Weight 299 lb BMI 33.7 BP 156/82 H 130/90 H Blood Pressure Location Lt brachial Lt brachial Position Sitting Sitting Pulse 65 Pulse Source Pulse Oximeter Pulse Oximetry (%) 97 Oxygen Delivery Method Room Air Intake Visit Reasons: 3 month f/u, dizziness Allergies No Known Allergies [No Known Allergies*] Allergy (Verified 09/16/22 15:33) Medication List - Last Reconciled 09/16/22 by Shannon Jones MD albuterol sulfate 90 mcg/actuation (ProAir HFA) 2 puffs inhalation Q6H PRN comp.stocking,thigh,long,large As directed 20-30 mm HG cyclobenzaprine 10 mg PO BEDTIME PRN lisinopril 10 mg PO DAILY 30 days simvastatin 5 mg PO BEDTIME Tobacco use date assessed: 03/10/22 Fall risk assessment: No Falls in past year Last assessed Fall Risk: 09/16/22 Dental Screening Dental Screen Date: 09/16/22 Did you have a dental visit in the last 12 months?: No Did you have a dental problem in the last 6 months where you did not have access to dental care?: No Was dental information given to patient?: No HPI 3 month f/u HPI Details 62-year-old obese male with diabetes mellitus asthma hypercholesterolemia hypertension coming in for follow-up. Last seen in May 2022 and blood work was requested. . Patient had colonoscopy done 08/19/2022 an EGD patchy gastritis in the stomach and colon polyps revealing negative results. Patient had ultrasound done of the liver showing fatty liver with an enlarged spleen cholelithiasis bilateral renal cyst. Paitent states has been having intermittent episode of jitteriness, under the car- would have to sit down- feels passing out , palpitations clammy- would take sugar and feels better. Family is concerned about palpitations as the son has atrial fibrillation. [facility] Medical History (Updated 09/16/22 @ 15:59 by Shannon Jones MD) Asthma Asthma Back pain Cholelithiasis COVID-19 virus infection Fatty liver Hepatitis C Hypercholesterolemia Obesity (BMI 30-39.9) Obstructive sleep apnea Peripheral neuropathy Peripheral vascular disease Tubular adenoma of colon Tubular adenoma of colon Type 2 diabetes mellitus with hyperglycemia Umbilical hernia Venous stasis Vitamin D deficiency Surgical History H/O colonoscopy H/O hernia repair H/O wrist surgery Family History Father No problems noted. Mother Cancer Maternal Aunt Colon cancer Sister Substance abuse Social History Household Members: Significant Other and Family Household Members Other:: and sister in law Housing: House Do you presently have visiting nurse or other home services: No Alcohol intake: never Patient Tobacco Use Status: Former Tobacco user Quit Date: 1980 Tobacco use type: Cigarette Years Smoked: 1980 e-Cigarette/Vaping Use: Never Used Second Hand Smoke Exposure: Yes Substance Use Type: Marijuana service: No Current occupational status: employed Current occupational exposures/hazards: No Cognitive needs: No Hearing needs: No Vision needs: Yes Questionnaire PHQ-9 Over the last 2 weeks, how often have you been bothered by any of the following problems? 1. Little interest or pleasure in doing things: not at all 2. Feeling down, depressed, or hopeless: not at all 3. Trouble falling or staying asleep, or sleeping too much: not at all 4. Feeling tired or having little energy: not at all 5. Poor appetite or overeating: not at all 6. Feeling bad about yourself - or that you are a failure or have let yourself or your family down: not at all 7. Trouble concentrating on things, such as reading the newspaper or watching television: not at all 8. Moving or speaking so slowly that other people could have noticed. Or the opposite - being so fidgety or restless that you have been moving around a lot more than usual: not at all 9. Thoughts that you would be better off or of hurting yourself in some way: not at all Total score: 0 Depression Screening Interpretation: Negative Source: Developed by Drs. Cl Sheldon, Ann Gonzalez, Lazaro Barbosa and colleagues, with an educational navdeep from [employer]. Thrive Questionnaire Date Thrive assessed: 03/10/22 AUDIT C Alcohol Use Questionnaire (AUDIT-C) 1. How often do you have a drink containing alcohol?: Monthly or less 2. How many drinks containing alcohol do you have on a typical day when you are drinking?: 1 or 2 3. How often do you have six or more drinks on one occasion?: Never Total Score: 1 Score Reviewed/Action Taken: No JUAN-7 AMB Questionnaire JUAN-7 Date JUAN - 7 assessed: 03/10/22 Source: Developed by Drs. Cl Sheldon, Ann Gonzalez, Lazaro Barbosa and colleagues, with an educational navdeep from [employer]. Physical exam (Primary Care) Vital Signs: Last Vital Signs Pulse 65 09/16/22 15:32 BP 130/90 H 09/16/22 15:55 Pulse Ox 97 09/16/22 15:32 Oxygen Delivery Method Room Air 09/16/22 15:32 BMI result Body Mass Index 33.7 Tobacco/Smoking Status: Tobacco use Status Tobacco use date assessed 03/10/22 09/16/22 15:35 Patient Tobacco Use Status Former Tobacco user 09/16/22 15:35 Tobacco use type Cigarette 09/16/22 15:35 e-Cigarette/Vaping Use Never Used 09/16/22 15:35 PHQ-9: PHQ-9 Score PHQ-9: Total score 0 09/16/22 15:50 Depression Screening Interpretation: Negative Thrive Assessment: Date of Thrive Assessment Date Thrive assessed 03/10/22 09/16/22 15:35 Const General: alert; No acute distress Eyes Conjunctivae: conjunctivae normal Resp Auscultation: clear to auscultation bilaterally Cardio Rate: regular rate Rhythm: regular rhythm GI Inspection: Yes normal to inspection Extrem General: Yes normal to inspection and No edema Assessment and Plan Assessment & Plan (1) Type 2 diabetes mellitus with hyperglycemia: Comment: [facility] Code(s): E11.65 - Type 2 diabetes mellitus with hyperglycemia Qualifiers: Diabetes mellitus commercial sales representative insulin use: without commercial sales representative use Qualified Code(s): E11.65 - Type 2 diabetes mellitus with hyperglycemia Plan: Decrease the amount of carbohydrate intake, pasta, bread, rice and potatoes are all sugar and that is aside from all the sweet stuff, remember that fruits are good but they are Sweet also. Hemoglobin A1c goal of less than 6.5. Concern about the diaphoretic events and palpitations question of hypoglycemia advised to eat 3 meals a day or have a snack in between Breakfast and dinner (2) Hypercholesterolemia: Code(s): E78.00 - Pure hypercholesterolemia, unspecified Plan: Avoid fried foods, chicken skin, eggs, butter margarine, pastries and meat. Be it pork or beef they have a lot of cholesterol LDL goal of less than 100. Patient is on simvastatin 5 mg once a day . Patient would like to hold off from changing the medication discussed that the goal for LDL is less than 100. Will retest in 3 months (3) Obesity (BMI 30-39.9): Code(s): E66.9 - Obesity, unspecified Plan: Diet and exercise (4) HTN (hypertension): Code(s): I10 - Essential (primary) hypertension Qualifiers: Hypertension type: essential hypertension Qualified Code(s): I10 - Essential (primary) hypertension Plan: Continue with blood pressure medication. Decrease salt intake and exercise patient takes lisinopril 10 mg once a day. Patient would like to hold off from the medication changes and would monitor the blood pressure at home (5) Fatty liver: Code(s): K76.0 - Fatty (change of) liver, not elsewhere classified Plan: Low-fat diet and exercise (6) Cholelithiasis: Code(s): K80.20 - Calculus of gallbladder without cholecystitis without obstruction Plan: Low-fat diet (7) Palpitation: Code(s): R00.2 - Palpitations Plan: concern about hypoglycemia- not on any meds- need to eat 3x a day Orders: Orders ECG 3 day holter monitor Today R00.2 - Palpitations Comprehensive Met. Panel 3 Months E11.65 - Type 2 diabetes mellitus with hyperglycemia Hemoglobin A1c 3 Months E11.65 - Type 2 diabetes mellitus with hyperglycemia Liver Panel 3 Months E11.65 - Type 2 diabetes mellitus with hyperglycemia, R79.89 - Other specified abnormal findings of blood chemistry Free T4 (Free Thyroxine) 3 Months E11.65 - Type 2 diabetes mellitus with hyperglycemia Thyroid Stimulating Hormone 3 Months E11.65 - Type 2 diabetes mellitus with hyperglycemia Coding Level of Care Code Est Pt Level 4 (20984) Diagnoses Type 2 diabetes mellitus with hyperglycemia E11.65 Diabetes mellitus mcc insulin use: without commercial sales representative use Hypercholesterolemia E78.00 Obesity (BMI 30-39.9) E66.9 HTN (hypertension) I10 Hypertension type: essential hypertension Fatty liver K76.0 Cholelithiasis K80.20 Palpitation R00.2 Additional Codes PHQ-9 - 11006 - PHQ-9 Billing: Y ([id number])
[2022-09-16 15:55] VITALS: BP 130/90
== END 2022-09-16 16:06 | disposition home or self-care (01) ==
PROVIDERS: PCP Internal Medicine; Visit Provider Internal Medicine
DX: E11.65 Type 2 diabetes mellitus with hyperglycemia (principal); I10 Essential (primary) hypertension; Z68.33 Body mass index [BMI] 33.0-33.9, adult; E78.00 Pure hypercholesterolemia, unspecified; E66.9 Obesity, unspecified; K76.0 Fatty (change of) liver, not elsewhere classified; K80.20 Calculus of gallbladder without cholecystitis without obstruction; R00.2 Palpitations
CPT/HCPCS: 99214

== ENCOUNTER → 2022-09-30 11:31 | Outpatient (REF) | payer OTHER, SELFPAY ==
--- NOTE | 2022-09-30 11:35 | HM_ITS ---
* Total monitoring time 2 days. * Underlying rhythm is atrial flutter. Average ventricular rate 84/Min. Range 45 to 130/Min. * No significant pauses. * Rare PVCs.3 runs. Longest 3 beats. * Symptoms in diary including lightheadedness, dizziness, clammy associated with atrial flutter with controlled rate. MTDD
== END ==
LOC: HO.CARD 11:31
PROVIDERS: PCP Internal Medicine; Visit Provider Internal Medicine
DX: R00.2 Palpitations (principal)
CPT/HCPCS: 93242

== ENCOUNTER → 2022-09-30 11:35 | Outpatient (BNV) | payer OTHER, SELFPAY | PROVIDERS: PCP Internal Medicine; Visit Provider Internal Medicine | DX: I48.92 Unspecified atrial flutter (principal) | CPT/HCPCS: 93244 ==

== ENCOUNTER 2022-10-24 15:40 | Inpatient (IN) | payer OTHER, SELFPAY ==
[2022-10-24] VITALS (9 sets, daily range): BP systolic 132–167; BP diastolic 76–109; PULSE 83–112; RESP 15–24; TEMP 36.1–37.2; O2SAT 95–100; BMI 32.8; BMI 33.8; BMI 33.0
--- NOTE | ~2022-10-24 | XR_ITS ---
EXAMINATION: XR CHEST CLINICAL INFORMATION: Shortness of breath COMPARISON: 07/15/2021 TECHNIQUE: 2 views of the chest were obtained. FINDINGS: No significant abnormality is noted involving the heart, lungs, mediastinum, bony thorax or soft tissues. XR/XR chest 2V IMPRESSION: Unremarkable examination.
--- NOTE | ~2022-10-24 | CT_ITS ---
EXAMINATION: CT ABDOMEN AND PELVIS WITH CONTRAST CLINICAL INFORMATION: Right lower quadrant pain COMPARISON: None available. TECHNIQUE: Multidetector volumetric images were obtained from the superior aspect of the liver through the pubic symphysis following administration 85 mL of Omnipaque 350 intravenous contrast. Sagittal and coronal reformatted images were obtained on the technologist's workstation. Oral contrast: No This CT examination was performed using dose optimization techniques as appropriate, variously including the following: *Automated exposure control *Adjustment of mA and/or kV according to patient size (this includes techniques or standardized protocols for targeted exams where dose is matched to indication/reason for exam; i.e. extremities or head) *Use of iterative reconstruction technique DLP: A 57 mGy-cm FINDINGS: LUNG BASES: Tiny 3 mm left lower lobe pulmonary nodule. LIVER, GALLBLADDER, AND BILIARY TREE: Changes of diffuse hepatic steatosis. No biliary ductal dilatation or focal abnormality. Gallstones within the gallbladder lumen without acute inflammatory changes. PANCREAS: Unremarkable. SPLEEN: Unremarkable. ADRENAL GLANDS: Unremarkable. KIDNEYS AND URETERS: The kidneys are normal in size, shape, and attenuation. No hydronephrosis, hydroureter, or calculi seen. No perinephric stranding. BLADDER: Unremarkable. GASTROINTESTINAL TRACT: Acute infiltrate changes are noted cecal base. No cecal mass seen grossly. The appendix is notably dilated measuring up to 15 mm with significant periappendiceal inflammatory changes tracking into the right pelvis as well as medially into the mesentery. No abscess seen. Diverticulosis especially distal colon without acute inflammatory changes. Mild haziness at the root of the mesentery consistent with nonspecific lipodystrophy. ABDOMINAL WALL: No significant hernia is appreciated. LYMPH NODES: Normal. VASCULAR: Unremarkable. PELVIC VISCERA: Unremarkable. OSSEOUS STRUCTURES: Unremarkable. CT/CT abdomen pelvis w IV con IMPRESSION: 1. Acute appendicitis with significant periappendiceal inflammatory changes. No abscess. Please note in a patient of this age, an obstructing lesion at the cecal base should be excluded. No gross abnormality noted on this nonenhanced CT scan. Incidental 3 mm left lower lobe pulmonary nodule. According to the UPDATED 2017 Fleischner Society recommendations, the advised follow-up imaging for solid nodules < 6 mm is: LOW RISK PATIENT: No routine follow-up. HIGH RISK PATIENT: Optional CT at 12 months. 1. Incidental gallstones. 2. Nonspecific lipodystrophy. Fleischner guidelines were followed.
--- NOTE | 2022-10-24 15:42 | ED_ITS ---
HPI - Abdominal Pain General Chief Complaint: Abdominal Pain Stated Complaint: appendix pain? afib Time Seen by Provider: 10/24/22 16:58 Source: patient Mode of arrival: ambulatory Limitations: no limitations History of Present Illness HPI narrative: 61-year-old male with past medical history of asthma, hepatitis-C, HLD, obesity, MIGUELITO, PVD, vitamin-D deficiency, diabetes, newly diagnosed with afib (not anticoagulated, waiting to see cards) here with complaints of 4 days of intermittent right sided abdominal pain, vomiting, No fevers, chills, diarrhea, constipation, urinary symptoms. Worsened with eating. Has known history of gallstones, previous hernia repair. Symptoms of dizziness, palpitations with exertion longstanding-none now Related Data Previous Rx's Medication Instructions Recorded comp.stocking,thigh,long,large #2 ea 11/07/20 albuterol sulfate 90 mcg/actuation 2 puff inhalation Q6H PRN 06/29/21 aerosol inhaler (ProAir HFA) shortness of breath or wheezing #8.5 grams cyclobenzaprine 10 mg tablet 10 mg PO BEDTIME PRN muscle spasm 08/24/21 #30 tabs lisinopril 10 mg tablet 10 mg PO DAILY 30 days #90 tabs 06/10/22 simvastatin 5 mg tablet 5 mg PO BEDTIME #90 tabs 06/10/22 Allergies Allergy/AdvReac Type Severity Reaction Status Date / Time No Known Allergies Allergy Verified 10/24/22 15:46 [No Known Allergies*] Review of Systems Review of Systems Yes all other systems are reviewed and are negative Constitutional: Reports no additional constitutional complaints, Denies body ache(s), Denies chills, Denies fever(s), Denies headache(s) and Denies weakness Eyes: Reports no additional eye complaints and Denies change in vision Reports system reviewed and no additional complaints, except as documented, Denies dizziness, Denies headache(s), Denies nasal congestion, Denies nasal discharge and Denies neck pain Cardiovascular: Reports no additional cardiovascular complaints, Denies chest pain, Denies leg edema and Denies dyspnea Respiratory: Reports no additional respiratory complaints, Denies cough and Denies dyspnea Gastrointestinal: Reports no additional gastrointestinal complaints, Reports abdominal pain, Denies diarrhea, Reports nausea and Reports vomiting Genitourinary: Denies urinary incontinence Musculoskeletal: Reports no additional musculoskeletal complaints, Denies back pain, Denies arthralgias, Denies joint swelling, Denies neck pain, Denies numbness and Denies tingling Skin/Breast: Reports system reviewed and no additional complaints, except as docu and Denies rash Reports system reviewed and no additional complaints, except as documented, Denies dizziness, Denies headache(s), Denies numbness, Denies tingling and Denies weakness PMFSH Past Medical History Attestation statement: The following information was validated with the patient. Source: old records reviewed and nursing notes reviewed Medical History Asthma Asthma Back pain Cholelithiasis COVID-19 virus infection Fatty liver Hepatitis C Hypercholesterolemia Obesity (BMI 30-39.9) Obstructive sleep apnea Peripheral neuropathy Peripheral vascular disease Tubular adenoma of colon Tubular adenoma of colon Type 2 diabetes mellitus with hyperglycemia Umbilical hernia Venous stasis Vitamin D deficiency Surgical History H/O colonoscopy H/O hernia repair H/O wrist surgery Family History Family History Father No problems noted. Mother Cancer Maternal Aunt Colon cancer Sister Substance abuse Social History Social History Household Members: Significant Other and Family Household Members Other:: and sister in law Housing: House Do you presently have visiting nurse or other home services: No Alcohol intake: never Patient Tobacco Use Status: Former Tobacco user Quit Date: 1980 Tobacco use type: Cigarette Years Smoked: 1980 e-Cigarette/Vaping Use: Never Used Second Hand Smoke Exposure: Yes Use of substances other than those prescribed or required for medical reasons: Yes Substance Use Type: Marijuana Are you DNR?: No Advance Directives: No Advance Directives Information Provided: No service: No Current occupational status: employed Current occupational exposures/hazards: No Cognitive needs: No Hearing needs: No Vision needs: Yes Physical Exam ED Vital Signs: Vital Signs - 24 hr 10/24/22 15:42 10/24/22 16:59 10/24/22 20:17 Temperature 99.0 F 98.8 F Pulse Rate 109 H 90 84 Respiratory Rate 24 H 18 18 Blood Pressure 158/109 H 132/76 143/94 H Pulse Oximetry 96 98 95 Oxygen Delivery Method Room Air Room Air Room Air BMI result Body Mass Index 33.8 Const General: cooperative, healthy appearing, comfortable and no acute distress Orientation/consciousness: patient oriented x3 Limitations: no limitations HENMT Head: Yes normal to inspection Ears: hearing grossly normal bilaterally Eyes General: appearance normal, both eyes and all related structures Pupils: Equal, round and reactive pupils present Neck Neck: Yes normal visual inspection, Yes full ROM, Yes no lymphadenopathy and Yes no meningeal signs Chest Chest palpation & inspection: normal inspection of the chest Resp Effort & Inspection: normal respiratory effort Auscultation: clear to auscultation bilaterally Cardio Rate: regular rate Rhythm: regular rhythm Peripheral pulses: Peripheral pulses 2+ throughout GI Inspection: Yes normal to inspection Palpation (GI): Soft to palpation, Tenderness to palpation present (GI) in the RLQ, in the RUQ and with rebound tenderness and Guarding due to palpation present (GI) Auscultation: normal bowel sounds General: Yes no CVA tenderness Back/Spine/Pelvis Back: no CVA tenderness Thoracic/Lumbar Spine: thoracic and lumbar spine normal to inspection Skin General skin exam: no rashes or lesions noted Neuro General: patient oriented x3, moves all extremities and no meningeal signs Cranial nerves: Yes Equal, round and reactive pupils present Cognition (Neuro): normal cognition Gait exam (Neuro): Normal gait present Extrem General: Yes normal to inspection, Yes no pedal edema and Yes no calf tenderness Course Course Course Narrative: This is an RME: Additional HPI, ROS, PE not included below will be deferred to primary provider. Patient is a 62-year-old male who presents to the emergency department for evaluation of abdominal pain. RLQ pain x 3 days progressively worsening, with associated nausea and vomiting, chills, pain exacerbates after eating. The pain has been constant since its onset with varying intensity. Reports urine is dark in color, but denies hematuria. reports having decreased urinary output. Plan: Labs, urinalysis, CT AP Reevaluation(s) Reevaluation #1: 1930-CT shows acute appendicitis. At this time infection is suspected. Antibiotics ordered. Patient to go to OR with general surgery. Medical Decision Making Medical Decision Making MDM Narrative: 61-year-old male with past medical history of asthma, hepatitis-C, HLD, obesity, MIGUELITO, PVD, vitamin-D deficiency, diabetes, newly diagnosed with afib (not anticoagulated, waiting to see cards) here with complaints of 4 days of intermittent right sided abdominal pain, vomiting, No fevers, chills, diarrhea, constipation, urinary symptoms. Worsened with eating. Has known history of gallstones, previous hernia repair. Symptoms of dizziness, palpitations with exertion longstanding-none now On exam patient with right-sided abdominal pain with rebound and guarding Will need labs, UA, CT abdomen pelvis Patient also tachycardic with new diagnosis of AFib who has not seen Cardiology or bed anticoagulated. Will obtain EKG, troponin, chest x-ray Differential Diagnosis Differential Diagnoses: The differential diagnosis associated with the presentation includes Cholelithiasis, cholecystitis, appendicitis, renal colic, pyelonephritis Admission/Observation Consideration of admission/observation: Escalation of care including admission/observation considered CT c/w with appendicitis that will need surgical involvement, OR and admission Consult Healthcare Provider Management of the patient was discussed with: Principal Statistical Programmer Spoke to Dr Garcia from general surgery who will admit patient for appendectomy Lab Data MDM Lab Attestation statement: I reviewed the patient's lab results. I reviewed labs which show mild leukocytosis with a rise unremarkable 10/24/22 16:11 10/24/22 16:11 Labs: Lab Results 10/24/22 10/24/22 10/24/22 Range/Units 16:11 16:11 17:14 WBC 12.1 H (4.8-10.8) X10*3/uL RBC 5.23 (4.60-5.80) X10*6/uL Hgb 15.7 (14.0-18.0) g/dl Hct 43.0 (42.0-52.0) % MCV 82.2 (80.0-98.0) fL MCH 30.0 (27.0-33.0) pg MCHC 36.5 H (31.0-36.0) g/dl RDW 12.5 (11.0-16.0) % Plt Count 187 (160-400) X10*3/uL MPV 9.5 (9.4-12.4) fL Immature Gran % (Auto) 0.5 H (0.0-0.4) % Neut % (Auto) 77.8 H (45-73) % Lymph % (Auto) 11.6 L (20-40) % Gilmer % (Auto) 9.4 (2-11) % Eos % (Auto) 0.5 (0-4) % Baso % (Auto) 0.2 (0-2) % Lymph # (Auto) 1.4 (1.2-4.9) X10*3/uL Gilmer # (Auto) 1.1 (0.1-1.2) X10*3/uL Eos # (Auto) 0.1 (0.0-0.4) X10*3/uL Baso # (Auto) 0.0 (0.0-0.2) X10*3/uL Abs Immat Gran (auto) 0.06 H (0.00-0.03) X10*3/uL Absolute Neuts (auto) 9.4 H (2.0-8.3) x10*3/uL Absolute Nucleated RBC 0.000 (0.0-0.012) X10*3/uL Nucleated RBC % (auto) 0.0 (0.0-0.2) /100WBC PT 13.4 H (11.1-13.3) SEC INR 1.1 (0.9-1.1) Sodium 137 (135-145) mmol/L Potassium 4.0 (3.3-5.1) mmol/L Chloride 110 H (96-108) mmol/L Carbon Dioxide 19 L (22-29) mmol/L Anion Gap 12 (12-20) BUN 19 H (9-16) mg/dL Creatinine 0.90 (0.5-1.4) mg/dL Estim Creat Clear Calc 127.8 Estimated GFR > 60 Random Glucose 163 H (60-115) mg/dL Lactic Acid (0.5-2.0) mmol/L Calcium 9.5 (8.4-10.2) mg/dL Magnesium (1.6-2.6) mg/dL Total Bilirubin 1.0 (0.0-1.0) mg/dL AST 11 (5-37) U/L ALT 18 (0-40) U/L Alkaline Phosphatase 73 (39-117) U/L Troponin I High Sens (<3.5-35.0) ng/L Total Protein 6.7 (6.5-8.0) g/dL Albumin 4.1 (3.5-5.0) g/dL Lipase 10 (8-78) U/L COVID-19 (ANETA) (Negative) COVID-19 Clin Com 10/24/22 10/24/22 10/24/22 Range/Units 17:14 17:14 17:14 WBC (4.8-10.8) X10*3/uL RBC (4.60-5.80) X10*6/uL Hgb (14.0-18.0) g/dl Hct (42.0-52.0) % MCV (80.0-98.0) fL MCH (27.0-33.0) pg MCHC (31.0-36.0) g/dl RDW (11.0-16.0) % Plt Count (160-400) X10*3/uL MPV (9.4-12.4) fL Immature Gran % (Auto) (0.0-0.4) % Neut % (Auto) (45-73) % Lymph % (Auto) (20-40) % Gilmer % (Auto) (2-11) % Eos % (Auto) (0-4) % Baso % (Auto) (0-2) % Lymph # (Auto) (1.2-4.9) X10*3/uL Gilmer # (Auto) (0.1-1.2) X10*3/uL Eos # (Auto) (0.0-0.4) X10*3/uL Baso # (Auto) (0.0-0.2) X10*3/uL Abs Immat Gran (auto) (0.00-0.03) X10*3/uL Absolute Neuts (auto) (2.0-8.3) x10*3/uL Absolute Nucleated RBC (0.0-0.012) X10*3/uL Nucleated RBC % (auto) (0.0-0.2) /100WBC PT (11.1-13.3) SEC INR (0.9-1.1) Sodium (135-145) mmol/L Potassium (3.3-5.1) mmol/L Chloride (96-108) mmol/L Carbon Dioxide (22-29) mmol/L Anion Gap (12-20) BUN (9-16) mg/dL Creatinine (0.5-1.4) mg/dL Estim Creat Clear Calc Estimated GFR Random Glucose (60-115) mg/dL Lactic Acid (0.5-2.0) mmol/L Calcium (8.4-10.2) mg/dL Magnesium 2.0 (1.6-2.6) mg/dL Total Bilirubin (0.0-1.0) mg/dL AST (5-37) U/L ALT (0-40) U/L Alkaline Phosphatase (39-117) U/L Troponin I High Sens 3.2 (<3.5-35.0) ng/L Total Protein (6.5-8.0) g/dL Albumin (3.5-5.0) g/dL Lipase (8-78) U/L COVID-19 (ANETA) Negative (Negative) COVID-19 Clin Com See Note 10/24/22 Range/Units 17:14 WBC (4.8-10.8) X10*3/uL RBC (4.60-5.80) X10*6/uL Hgb (14.0-18.0) g/dl Hct (42.0-52.0) % MCV (80.0-98.0) fL MCH (27.0-33.0) pg MCHC (31.0-36.0) g/dl RDW (11.0-16.0) % Plt Count (160-400) X10*3/uL MPV (9.4-12.4) fL Immature Gran % (Auto) (0.0-0.4) % Neut % (Auto) (45-73) % Lymph % (Auto) (20-40) % Gilmer % (Auto) (2-11) % Eos % (Auto) (0-4) % Baso % (Auto) (0-2) % Lymph # (Auto) (1.2-4.9) X10*3/uL Gilmer # (Auto) (0.1-1.2) X10*3/uL Eos # (Auto) (0.0-0.4) X10*3/uL Baso # (Auto) (0.0-0.2) X10*3/uL Abs Immat Gran (auto) (0.00-0.03) X10*3/uL Absolute Neuts (auto) (2.0-8.3) x10*3/uL Absolute Nucleated RBC (0.0-0.012) X10*3/uL Nucleated RBC % (auto) (0.0-0.2) /100WBC PT (11.1-13.3) SEC INR (0.9-1.1) Sodium (135-145) mmol/L Potassium (3.3-5.1) mmol/L Chloride (96-108) mmol/L Carbon Dioxide (22-29) mmol/L Anion Gap (12-20) BUN (9-16) mg/dL Creatinine (0.5-1.4) mg/dL Estim Creat Clear Calc Estimated GFR Random Glucose (60-115) mg/dL Lactic Acid 1.2 (0.5-2.0) mmol/L Calcium (8.4-10.2) mg/dL Magnesium (1.6-2.6) mg/dL Total Bilirubin (0.0-1.0) mg/dL AST (5-37) U/L ALT (0-40) U/L Alkaline Phosphatase (39-117) U/L Troponin I High Sens (<3.5-35.0) ng/L Total Protein (6.5-8.0) g/dL Albumin (3.5-5.0) g/dL Lipase (8-78) U/L COVID-19 (ANETA) (Negative) COVID-19 Clin Com Independent Interpretation I performed an independent interpretation of an: EKG, Plain X-Ray and CT Scan Interpretation: Independently reviewed the EKG which shows atrial flutter with a variable AV block with a rate of 103, normal QRS, normal QT I independently viewed the chest x-ray and a CT scan of the abdomen and pelvis and agreed with radiology report Radiology Impression Discussion of test interpretation with radiology: I have reviewed the radiologist's reading. Radiologist Impression: [address] [id number] [address] Scan Report Signed Patient: Natan Agarwal MR#: [id number] : 1960 Acct:[id number] Age/Sex: 62 / M ADM Date: 10/24/22 Loc: HO.ED Attending Dr: Ordering Physician: Nasima Nix CNP Date of Service: 10/24/22 Procedure(s): CT abdomen pelvis w IV con Accession Number(s): [id number] cc: Nasima Nix CNP~ EXAMINATION: CT ABDOMEN AND PELVIS WITH CONTRAST? CLINICAL INFORMATION: Right lower quadrant pain? COMPARISON: None available. TECHNIQUE: Multidetector volumetric images were obtained from the superior aspect of the liver through the pubic symphysis following administration 85 mL of Omnipaque 350 intravenous contrast. Sagittal and coronal reformatted images were obtained on the technologist's workstation.? Oral contrast: No This CT examination was performed using dose optimization techniques as appropriate, variously including the following: *Automated exposure control *Adjustment of mA and/or kV according to patient size (this includes techniques or standardized protocols for targeted exams where dose is matched to indication/reason for exam; i.e. extremities or head) *Use of iterative reconstruction technique DLP: A 57 mGy-cm FINDINGS: LUNG BASES: Tiny 3 mm left lower lobe pulmonary nodule.? LIVER, GALLBLADDER, AND BILIARY TREE: Changes of diffuse hepatic steatosis. No biliary ductal dilatation or focal abnormality. Gallstones within the gallbladder lumen without acute inflammatory changes.? PANCREAS: Unremarkable.? SPLEEN: Unremarkable.? ADRENAL GLANDS: Unremarkable.? KIDNEYS AND URETERS: The kidneys are normal in size, shape, and attenuation. No hydronephrosis, hydroureter, or calculi seen. No perinephric stranding. ? BLADDER: Unremarkable.? GASTROINTESTINAL TRACT: Acute infiltrate changes are noted cecal base. No cecal mass seen grossly. The appendix is notably dilated measuring up to 15 mm with significant periappendiceal inflammatory changes tracking into the right pelvis as well as medially into the mesentery. No abscess seen. Diverticulosis especially distal colon without acute inflammatory changes. Mild haziness at the root of the mesentery consistent with nonspecific lipodystrophy. ABDOMINAL WALL: No significant hernia is appreciated.? LYMPH NODES: Normal. VASCULAR: Unremarkable. PELVIC VISCERA: Unremarkable.? OSSEOUS STRUCTURES: Unremarkable.? CT/CT abdomen pelvis w IV con IMPRESSION: 1.? Acute appendicitis with significant periappendiceal inflammatory changes. No abscess. Please note in a patient of this age, an obstructing lesion at the cecal base should be excluded. No gross abnormality noted on this nonenhanced CT scan. Incidental 3 mm left lower lobe pulmonary nodule. According to the UPDATED 2017 Fleischner Society recommendations, the advised follow-up imaging for solid nodules < 6 mm is: ?? LOW RISK PATIENT: No routine follow-up. ?? HIGH RISK PATIENT: Optional CT at 12 months. 1.? Incidental gallstones. 2.? Nonspecific lipodystrophy. ? Fleischner guidelines were followed. [address] [id number] XRay Report Signed Patient: Natan Agarwal MR#: [id number] : 1960 Acct:[id number] Age/Sex: 62 / M ADM Date: 10/24/22 Loc: .ED Attending Dr: Ordering Physician: Lynnette Corea NP Date of Service: 10/24/22 Procedure(s): XR chest 2V Accession Number(s): [id number] cc: Lynnette Corea NP~ EXAMINATION: XR CHEST CLINICAL INFORMATION: Shortness of breath COMPARISON: 07/15/2021 TECHNIQUE: 2 views of the chest were obtained. FINDINGS: No significant abnormality is noted involving the heart, lungs, mediastinum, bony thorax or soft tissues. XR/XR chest 2V IMPRESSION: Unremarkable examination. Medications Administered Generic Name Dose Route Start Last Admin Trade Name Freq PRN Reason Stop Dose Admin Sodium Chloride 1,000 mls @ 999 mls/hr 10/24/22 19:45 10/24/22 19:49 Ns IV 10/24/22 20:45 999 mls/hr .Q1H1M LAINE Administration Discontinued Medications Generic Name Dose Route Start Last Admin Trade Name Freq PRN Reason Stop Dose Admin Sodium Chloride 1,000 mls @ 999 mls/hr 10/24/22 17:14 10/24/22 19:46 Ns IV 10/24/22 18:14 Infused .Q1H1M STA Infusion Piperacillin Sod/Tazobactam 100 mls @ 200 mls/hr 10/24/22 19:31 10/24/22 19:37 Sod 4.5 gm/ Sodium Chloride IV 10/24/22 20:00 200 mls/hr ONCE ONE Administration Iohexol 100 ml 10/24/22 18:22 10/24/22 18:23 Iohexol 350 Mg/Ml 100 Ml Infus..Btl IV 10/24/22 18:23 85 ml ONCE ONE Administration Morphine Sulfate 4 mg 10/24/22 17:14 10/24/22 18:07 Morphine Sulfate 4 Mg/Ml Cartridge IVPUSH 10/24/22 17:15 4 mg ONCE ONE Administration Protocol Ondansetron HCl 4 mg 10/24/22 17:14 10/24/22 18:07 Ondansetron Hcl 4 Mg/2 Ml Vial IVPUSH 10/24/22 17:15 4 mg ONCE ONE Administration Critical Care Time Critical Care Time Critical Care Time: Yes Total Critical Care Time: 60 Attestation: Re-evaluations for acute abdomen, d/w with surgery for admission, d/w with family/patient Discharge Plan Discharge Clinical Impression: Acute appendicitis, Atrial flutter, Leukocytosis Patient Disposition: Admitted As Inpatient Interventions: Admission Worksheet (ED) Last Done: 10/24/22 19:51
--- NOTE | 2022-10-24 15:48 | ECG_ITS ---
Test Reason : TACHYCARDIA Blood Pressure : / mmHG Vent. Rate : 103 BPM Atrial Rate : 249 BPM P-R Int : 000 ms QRS Dur : 098 ms QT Int : 334 ms P-R-T Axes : -86 -05 006 degrees QTc Int : 437 ms Atrial flutter with variable A-V block Incomplete right bundle branch block Possible Inferior infarct , age undetermined Abnormal ECG When compared with ECG of 23-JUN-2021 13:30, ST more depressed Inferior leads Nonspecific T wave abnormality, improved in Anterior leads Referred By: Nasima Nix Electronically Signed By:JERRY CHAMBERS
[2022-10-24 16:15] LABS: MANUAL DIFF FLAG NO
[2022-10-24 16:16] LABS: Basophils Percent Auto 0.2 % (0-2); Eosinophils Absolute Auto 0.1 X10*3/uL (0.0-0.4); Eosinophils Percent Auto 0.5 % (0-4); Hemoglobin 15.7 g/dl (14.0-18.0); Imm Gran Abs Auto 0.06 X10*3/uL (0.00-0.03); Imm Gran Pct Auto 0.5 % (0.0-0.4); Lymphocytes Absolute Auto 1.4 X10*3/uL (1.2-4.9); Lymphocytes Percent Auto 11.6 % (20-40); Mean Corpuscular HGB Conc 36.5 g/dl (31.0-36.0); Mean Corpuscular Volume 82.2 fL (80.0-98.0); Mean Platelet Volume 9.5 fL (9.4-12.4); Monocytes Absolute Auto 1.1 X10*3/uL (0.1-1.2); Monocytes Percent Auto 9.4 % (2-11); Neutrophils Absolute Auto 9.4 x10*3/uL (2.0-8.3); Neutrophils Percent Auto 77.8 % (45-73); Platelet Count 187 X10*3/uL (160-400); Red Blood Count 5.23 X10*6/uL (4.60-5.80); Red Cell Distribution Width 12.5 % (11.0-16.0); White Blood Count 12.1 X10*3/uL (4.8-10.8)
[2022-10-24 16:31] LABS: Alanine Aminotransferase 18 U/L (0-40); Albumin Level 4.1 g/dL (3.5-5.0); Alkaline Phosphatase 73 U/L (39-117); Anion Gap 12 (12-20); Aspartate Amino Transferase 11 U/L (5-37); Blood Urea Nitrogen 19 mg/dL (9-16); Calcium 9.5 mg/dL (8.4-10.2); Carbon Dioxide 19 mmol/L (22-29); Chloride 110 mmol/L (96-108); Creatinine Clr Calc Pharmacy 127.8; Estimated Glomerular Filt Rate > 60; Glucose Random 163 mg/dL (60-115); Lipase 10 U/L (8-78); Sodium 137 mmol/L (135-145); Total Protein 6.7 g/dL (6.5-8.0)
[2022-10-24] MEDS: 0.9 % Sodium Chloride 1,000 ML 999 ML IV ×2 (17:59→19:49)
[2022-10-24] MEDS: ondansetron HCL 4 MG/2 ML VIAL IVPUSH (18:07)
[2022-10-24] MEDS: Morphine Sulfate 4 MG/ML CARTRIDGE IVPUSH (18:07)
[2022-10-24 18:15] LABS: Lactic Acid 1.2 mmol/L (0.5-2.0)
[2022-10-24 18:20] LABS: INTERNATIONAL NORM RATIO 1.1 (0.9-1.1); Prothrombin Time 13.4 SEC (11.1-13.3)
[2022-10-24] MEDS: iohexoL 350 MG/ML 100 ML INFUS..BTL IV (18:23)
[2022-10-24 18:26] LABS: Troponin-I High Sensitivity 3.2 ng/L (<3.5-35.0)
[2022-10-24 18:53] LABS: COVID-19 Test Negative (Negative); IDNOW Serial# BCCEAD1C
--- NOTE | 2022-10-24 19:31 | P.CONAN_ITS ---
HPI - Anesthesia Eval Consult details Narrative: Acute appendicitis PMFSH Active Problems Active Problems: All Active Problems (Updated 10/06/22 @ 21:32 by Shannon Jones MD) Atrial flutter (Acute) Palpitation (Acute) Fatty liver (Acute) Cholelithiasis (Acute) HTN (hypertension) (Acute) Umbilical hernia (Acute) Ventral hernia (Acute) Diarrhea (Acute) Erectile dysfunction (Acute) Peripheral vascular disease (Acute) Annual physical exam (Acute) Low Back Pain (Acute) Constipation (Acute) Lumbar degenerative disc disease (Acute) Verruca (Acute) COVID-19 virus infection (Acute) Tubular adenoma of colon (Acute) Type 2 diabetes mellitus with hyperglycemia (Acute) Hypercholesterolemia (Acute) Asthma (Acute) Obstructive sleep apnea (Acute) Obesity (BMI 30-39.9) (Acute) Past Medical History Medical History Asthma Asthma Back pain Cholelithiasis COVID-19 virus infection Fatty liver Hepatitis C Hypercholesterolemia Obesity (BMI 30-39.9) Obstructive sleep apnea Peripheral neuropathy Peripheral vascular disease Tubular adenoma of colon Tubular adenoma of colon Type 2 diabetes mellitus with hyperglycemia Umbilical hernia Venous stasis Vitamin D deficiency Family History Family History Father No problems noted. Mother Cancer Maternal Aunt Colon cancer Sister Substance abuse Family history of problems with anesthesia: No Surgical History Surgical History H/O colonoscopy H/O hernia repair H/O wrist surgery History of Problems with Anesthesia: No Social History Social History Household Members: Significant Other and Family Household Members Other:: and sister in law Housing: House Do you presently have visiting nurse or other home services: No Alcohol intake: never Patient Tobacco Use Status: Former Tobacco user Quit Date: 1980 Tobacco use type: Cigarette Years Smoked: 1980 e-Cigarette/Vaping Use: Never Used Second Hand Smoke Exposure: Yes Use of substances other than those prescribed or required for medical reasons: Yes Substance Use Type: Marijuana Are you DNR?: No Advance Directives: No Advance Directives Information Provided: No service: No Current occupational status: employed Current occupational exposures/hazards: No Cognitive needs: No Hearing needs: No Vision needs: Yes Meds Allergies Allergy/AdvReac Type Severity Reaction Status Date / Time No Known Allergies Allergy Verified 10/24/22 15:46 [No Known Allergies*] Exam Exam Date and Time: October 24, 20221930 Height,Weight and Vital Signs: Height 6 ft 7 in Weight 132 kg Last Vital Signs Temp 99.0 F 10/24/22 15:42 Pulse 90 10/24/22 16:59 Resp 18 10/24/22 16:59 BP 132/76 10/24/22 16:59 Pulse Ox 98 10/24/22 16:59 O2 Del Method Room Air 10/24/22 16:59 Pertinent Lab Results Pertinent Lab Results: Laboratory Tests 10/24/22 10/24/22 10/24/22 16:11 16:11 17:14 WBC 12.1 H RBC 5.23 Hgb 15.7 Hct 43.0 MCV 82.2 MCH 30.0 MCHC 36.5 H RDW 12.5 Plt Count 187 MPV 9.5 Immature Gran % (Auto) 0.5 H Neut % (Auto) 77.8 H Lymph % (Auto) 11.6 L [place] % (Auto) 9.4 Eos % (Auto) 0.5 Baso % (Auto) 0.2 Lymph # (Auto) 1.4 [place] # (Auto) 1.1 Eos # (Auto) 0.1 Baso # (Auto) 0.0 Abs Immat Gran (auto) 0.06 H Absolute Neuts (auto) 9.4 H Absolute Nucleated RBC 0.000 Nucleated RBC % (auto) 0.0 PT 13.4 H INR 1.1 Sodium 137 Potassium 4.0 Chloride 110 H Carbon Dioxide 19 L Anion Gap 12 BUN 19 H Creatinine 0.90 Estim Creat Clear Calc 127.8 Estimated GFR > 60 Random Glucose 163 H Lactic Acid Calcium 9.5 Magnesium Total Bilirubin 1.0 AST 11 ALT 18 Alkaline Phosphatase 73 Troponin I High Sens Total Protein 6.7 Albumin 4.1 Lipase 10 COVID-19 (ANETA) COVID-19 Clin Com 10/24/22 10/24/22 10/24/22 17:14 17:14 17:14 WBC RBC Hgb Hct MCV MCH MCHC RDW Plt Count MPV Immature Gran % (Auto) Neut % (Auto) Lymph % (Auto) [place] % (Auto) Eos % (Auto) Baso % (Auto) Lymph # (Auto) [place] # (Auto) Eos # (Auto) Baso # (Auto) Abs Immat Gran (auto) Absolute Neuts (auto) Absolute Nucleated RBC Nucleated RBC % (auto) PT INR Sodium Potassium Chloride Carbon Dioxide Anion Gap BUN Creatinine Estim Creat Clear Calc Estimated GFR Random Glucose Lactic Acid Calcium Magnesium 2.0 Total Bilirubin AST ALT Alkaline Phosphatase Troponin I High Sens 3.2 Total Protein Albumin Lipase COVID-19 (ANETA) Negative COVID-19 Clin Com See Note 10/24/22 17:14 WBC RBC Hgb Hct MCV MCH MCHC RDW Plt Count MPV Immature Gran % (Auto) Neut % (Auto) Lymph % (Auto) [place] % (Auto) Eos % (Auto) Baso % (Auto) Lymph # (Auto) [place] # (Auto) Eos # (Auto) Baso # (Auto) Abs Immat Gran (auto) Absolute Neuts (auto) Absolute Nucleated RBC Nucleated RBC % (auto) PT INR Sodium Potassium Chloride Carbon Dioxide Anion Gap BUN Creatinine Estim Creat Clear Calc Estimated GFR Random Glucose Lactic Acid 1.2 Calcium Magnesium Total Bilirubin AST ALT Alkaline Phosphatase Troponin I High Sens Total Protein Albumin Lipase COVID-19 (ANETA) COVID-19 Clin Com Airway Mallampati Class: II TM Dist: >3cm Neck ROM: Full Loose/Missing/Broken Teeth: No Heart: RRR Lungs: CTA Assessment and Plan Assessment Anesthesia Assessment: Anesthesia Plan Discussed and Chart Reviewed Final Anesthetic Review Family History of Problems with Anesthesia: No History of Problems with Anesthesia: No NPO: Yes ASA Class: III and Emergency Final Preanesthetic Review: No Changes in Pt Med Stat, Meds/Allgs Chart Reviewed, Consent Obtained/Reviewed and Anes Risks/Benef Reviewed Patient Risk: Intermediate Procedure Risk: Intermediate Anesthetic Plan Anesthetic Plan: GA Disposition: Standard PACU
[2022-10-24] MEDS: Piperacillin Sodium/Tazobactam 4.5 GM in 0.9 % Sodium Chloride 100 ML IV (19:37)
--- NOTE | 2022-10-24 19:52 | PM.HPGS ---
History of Present Illness History of Present Illness Date of Service: 10/24/22 Chief complaint: appendix pain? Narrative: Natan Agarwal is a 62 year old male with a plethora of medical problems and comorbidities (please see problem List) who presents here with a 4 day history of progressively worsening right lower quadrant pain. Because of progression of symptoms, he presented emergency department where he underwent further workup. This included the CT scan demonstrating significant appendicitis and periappendicitis. Chart and scan were reviewed and patient evaluated. Patient has new diagnosis of atrial fib/flutter and has not seen a axle bearing polisher for this yet. [facility] Past Medical History Medical History Asthma Asthma Back pain Cholelithiasis COVID-19 virus infection Fatty liver Hepatitis C Hypercholesterolemia Obesity (BMI 30-39.9) Obstructive sleep apnea Peripheral neuropathy Peripheral vascular disease Tubular adenoma of colon Tubular adenoma of colon Type 2 diabetes mellitus with hyperglycemia Umbilical hernia Venous stasis Vitamin D deficiency Family History Family History Father No problems noted. Mother Cancer Maternal Aunt Colon cancer Sister Substance abuse Surgical History Surgical History H/O colonoscopy H/O hernia repair H/O wrist surgery Social History Social History Household Members: Significant Other and Family Household Members Other:: and sister in law Housing: House Do you presently have visiting nurse or other home services: No Alcohol intake: never Patient Tobacco Use Status: Former Tobacco user Quit Date: 1980 Tobacco use type: Cigarette Years Smoked: 1980 e-Cigarette/Vaping Use: Never Used Second Hand Smoke Exposure: Yes Substance Use Type: Marijuana Advance Directives: No Advance Directives Information Provided: No service: No Current occupational status: employed Current occupational exposures/hazards: No Cognitive needs: No Hearing needs: No Vision needs: Yes Meds Allergies Allergy/AdvReac Type Severity Reaction Status Date / Time No Known Allergies Allergy Verified 10/24/22 15:46 [No Known Allergies*] Active Medications: Current Medications Albuterol Sulfate (Albuterol Sulfate (0.083%) 2.5 Mg/3 Ml Vial.Neb) 2.5 mg INHALE ONCE PRN PRN Reason: Wheezing Fentanyl (Fentanyl Citrate/Pf 100 Mcg/2 Ml Vial) 50 mcg IVPUSH Q5M PRN; Protocol PRN Reason: Pain, Severe (Pain Scale 7-10) Hydromorphone HCl (Hydromorphone Hcl 0.5 Mg/0.5 Ml Syringe) 0.5 mg IVPUSH Q5M PRN; Protocol PRN Reason: Pain, Severe (Pain Scale 7-10) Piperacillin Sod/Tazobactam (Sod 4.5 gm/ Sodium Chloride) 100 mls @ 200 mls/hr IV ONCE ONE Stop: 10/24/22 20:00 Last Admin: 10/24/22 19:37 Dose: 200 mls/hr Promethazine HCl 12.5 mg/ (Sodium Chloride) 50.5 mls @ 202 mls/hr IV ONCE PRN PRN Reason: Nausea and Vomiting Sodium Chloride (Ns) 1,000 mls @ 999 mls/hr IV .Q1H1M LAINE Stop: 10/24/22 20:45 Last Admin: 10/24/22 19:49 Dose: 999 mls/hr Oxycodone HCl (Oxycodone Hcl Immed Release 5 Mg Tablet) 5 mg PO ONCE PRN PRN Reason: Pain, Severe (Pain Scale 7-10) Physical Exam Vital Signs: Vital Signs: Last Vital Signs Temp 99.0 F 10/24/22 15:42 Pulse 90 10/24/22 16:59 Resp 18 10/24/22 16:59 BP 132/76 10/24/22 16:59 Pulse Ox 98 10/24/22 16:59 O2 Del Method Room Air 10/24/22 16:59 BMI result Body Mass Index 32.8 Chest: Other: Chest breath sounds bilaterally, patient in SVT. GI: Other: Very corpulent abdomen. Umbilical hernia scar from prior hernia surgery. Marked right lower quadrant rebound tenderness. Results Results Labs: Short CBC 10/24/22 Range/Units 16:11 WBC 12.1 H (4.8-10.8) X10*3/uL Hgb 15.7 (14.0-18.0) g/dl Hct 43.0 (42.0-52.0) % Plt Count 187 (160-400) X10*3/uL BMP 10/24/22 16:11 Sodium 137 Potassium 4.0 Chloride 110 H Carbon Dioxide 19 L BUN 19 H Creatinine 0.90 Calcium 9.5 Liver Function 10/24/22 Range/Units 16:11 Total Bilirubin 1.0 (0.0-1.0) mg/dL AST 11 (5-37) U/L ALT 18 (0-40) U/L Alkaline Phosphatase 73 (39-117) U/L Albumin 4.1 (3.5-5.0) g/dL Assessment and Plan (1) Acute appendicitis: Status: Acute (2) Atrial flutter: Status: Acute Plan Risks, benefits, alternatives laparoscopic possible open appendectomy reviewed the patient and his was also present and included but not limited to bleeding, infection, numbness, pain, scarring, bowel or bladder injury or leak and the patient wishes to proceed. All questions were answered. Arrangements were made for this procedure to be done this evening. Time Spent With Patient Time: Total time managing care of this patient today ____ minutes. Quality Stroke Does the patient have a stroke diagnosis?: No VTE Prior VTE?: No VTE Risk Level:: Surgical - low VTE Device Contraindication: Treatment Not Indicated VTE Drug Contraindication: Treatment Not Indicated Procedures Date of Service Date of Service: 10/24/22
--- NOTE | 2022-10-24 22:26 | W.PM.OPN ---
Operative Note Operative Note Date of Service: 10/24/22 Narrative: Preoperative diagnosis: [] Acute severe appendicitis Postop diagnosis: [] Locally perforated appendicitis Procedure [] laparoscopic appendectomy Surgeon: [] Jose Boat Canvas Maker Installer: [] Type of Anesthesia: [] General Indication for surgery: [] Massively morbidly obese patient. Incomplete descended cecum with retrocecal locally perforated appendicitis. Acute suppurative peritonitis Findings: [] Patient brought to the operating room, placed on operative table supine position, after adequate level of general anesthesia was induced, the patient is very corpulent abdomen was prepped and draped in usual sterile fashion. Using a supraumbilical curvilinear incision above the patient's prior umbilical hernia repair, Peñaloza technique was used to insufflate the abdominal cavity to 15 mm of CO2. Lower midline and suprapubic ports were placed under direct laparoscopic view, and the patient placed in Trendelenburg position and tilted to the left. Findings were as noted above. Phlegmonous mass in the right mid abdomen was encountered. Omentum was swept off this and a locally perforated appendicitis was identified. Retrocecal appendix was in a phlegmonous mass which was dissected off the surrounding structures to free the appendix. Mid appendix was actually perforated. Cecum was mobilized and brought onto the field. Mesentery of the proximal appendix was sequentially taken down using double firing of ligature device. Appendix was then transected at the cecal base using LIBERTAD 60 stapler because the appendix in this area was markedly phlegmonous. More proximal appendix at the perforation site was from the original appendix and was dissected free and its mesentery sequentially taken down using double firing of ligature device. Both specimens were placed in an Endo-Catch bag, a retrieved through the umbilical port. The abdominal cavity was very copiously irrigated, and secured hemostasis. Wounds were closed in the following manner; umbilical wound and lower midline wound at the fascia reapproximated using interrupted 0 Vicryl sutures. Skin wounds were closed using subcuticular 4-0 Vicryl sutures followed by Steri-Strips and sterile dressings. Wounds were infiltrated 0.5% Marcaine at completion. Sponge, needle, and instrument counts reported correct. Patient tolerated the procedure well and emerged anesthesia stable condition. EBL minimal
--- NOTE | 2022-10-24 23:19 | PC.NURSE ---
Patient arrived to [facility] from PACU s/p lap appendectomy for perforated appendix. Arrived 23:15. Assumed care at this time.
[2022-10-24] MEDS: oxyCODONE HCl Immed Release 5 MG TABLET PO (23:52)
[2022-10-24] MEDS: Dextrose 5 % and 0.9 % NaCl 1,000 ML 100 ML IVCONT (23:52)
[2022-10-24 23:56] LABS: Glucose, Whole Blood 146 mg/dL (60-115)
[2022-10-24] MEDS: 0.9 % Sodium Chloride Flush 3 ML SYRINGE IVFLUSH (23:56)
[2022-10-25] VITALS (7 sets, daily range): BP systolic 137–151; BP diastolic 76–85; PULSE 75–78; RESP 15–20; TEMP 35.9–37.2; O2SAT 95–98
[2022-10-25] MEDS: Piperacillin Sodium/Tazobactam 4.5 GM in 0.9 % Sodium Chloride 100 ML IV ×4 (02:22→19:42)
[2022-10-25] MEDS: Acetaminophen 325 MG TABLET 650 MG PO (05:47)
--- NOTE | 2022-10-25 06:44 | HO.POSTANES ---
Post Anesthesia Evaluation Post Anesthesia Evaluation Date of Service: 10/25/22 Vital Signs: Vital Signs Temp Pulse Resp BP Pulse Ox O2 Del Method O2 Flow Rate 10/25/22 03:53 Blow By 10/25/22 03:10 96.9 F 75 20 144/76 H 98 Nasal Cannula 2 10/25/22 00:52 76 18 10/25/22 00:00 95 Nasal Cannula 10/24/22 23:31 96.9 F 84 20 143/92 H 97 Nasal Cannula 2 10/24/22 22:54 98.2 F 87 18 149/91 H 96 Nasal Cannula 2 10/24/22 22:39 87 16 154/91 H 99 Simple Mask 6 10/24/22 22:34 83 16 152/88 H 100 Simple Mask 6 10/24/22 22:29 92 16 167/92 H 100 Simple Mask 8 10/24/22 22:24 97.5 F 112 H 15 163/97 H 100 Simple Mask 8 10/24/22 20:17 98.8 F 84 18 143/94 H 95 Room Air Anesthesia: General Endotracheal-GETA Mental Status: Awake Pain Control: Satisfactory Nausea/Vomiting: Mild Hydration: Adequate Anesthesia-Related Issues: No Anes. Related Issues
[2022-10-25 07:07] LABS: Glucose, Whole Blood 135 mg/dL (60-115)
--- NOTE | 2022-10-25 07:27 | PHA.MEDREC ---
Pharmacy Consult ? Medication Reconciliation Pharmacy has completed the medication reconciliation.
[2022-10-25 07:39] LABS: Anion Gap 11 (12-20); Blood Urea Nitrogen 17 mg/dL (9-16); Calcium 8.2 mg/dL (8.4-10.2); Carbon Dioxide 26 mmol/L (22-29); Chloride 108 mmol/L (96-108); Creatinine Clr Calc Pharmacy 129.6; Estimated Glomerular Filt Rate > 60; Glucose Random 133 mg/dL (60-115); Potassium 4.5 mmol/L (3.3-5.1); Sodium 140 mmol/L (135-145)
[2022-10-25] MEDS: Dextrose 5 % and 0.9 % NaCl 1,000 ML 100 ML IVCONT ×2 (08:39→17:31)
[2022-10-25] MEDS: HYDROmorphone HCl 0.5 MG/0.5 ML SYRINGE IVPUSH ×3 (08:41→19:34)
--- NOTE | 2022-10-25 09:04 | MHC.CM.PN ---
CM met with Patient and his /HCP at bedside. 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 Home/self care is the goal and CM has initiated and will follow for dc planning. PCP is Dr. GARZA.
--- NOTE | 2022-10-25 09:22 | PM.PNGS ---
Subjective Subjective Date of Service: 10/25/22 Interval history: Feels ok this morning. Having some incisional pain but comfortable with analgesics. Tolerating clear liquids without nausea. Has not passed flatus. Has not been OOB yet. Physical Exam Vital Signs: Vital Signs: Last Vital Signs Temp 99.0 F 10/25/22 07:27 Pulse 76 10/25/22 07:27 Resp 20 10/25/22 07:27 BP 149/85 H 10/25/22 07:27 Pulse Ox 97 10/25/22 07:27 O2 Del Method Room Air 10/25/22 07:27 O2 Flow Rate 2 10/25/22 03:10 Oxygen Flow Rate 2 10/25/22 00:00 BMI result Body Mass Index 33.0 Const: General: comfortable, no acute distress and alert Orientation/consciousness: patient oriented x3 Resp: Effort & Inspection: normal respiratory effort GI: Inspection: Yes distended and Yes incision (dressings c/d/i) Palpation (GI): Soft to palpation, Tenderness to palpation present (GI) (mild incisional), no guarding and not rigid Percussion: Yes tympanic to percussion Skin: General skin exam: no rashes or lesions noted Neuro: General: patient oriented x3 Objective Data Active Medications Acetaminophen (Acetaminophen 325 Mg Tablet) 650 mg PO Q6H PRN PRN Reason: Pain, Mild (Pain Scale 1-3) Last Admin: 10/25/22 05:47 Dose: 650 mg Documented By: YANIV Al Hydroxide/Mg Hydroxide (Magnesium Hydrox/Alum Hydrox 30 Ml Oral.Susp) 30 ml PO Q4H PRN PRN Reason: Heartburn/Nausea Albuterol Sulfate (Albuterol Sulfate (0.083%) 2.5 Mg/3 Ml Vial.Neb) 2.5 mg INHALE ONCE PRN PRN Reason: Wheezing Docusate Sodium (Docusate Sodium 100 Mg Capsule) 100 mg PO DAILY PRN PRN Reason: Constipation Fentanyl (Fentanyl Citrate/Pf 100 Mcg/2 Ml Vial) 50 mcg IVPUSH Q5M PRN; Protocol PRN Reason: Pain, Severe (Pain Scale 7-10) Hydromorphone HCl (Hydromorphone Hcl 0.5 Mg/0.5 Ml Syringe) 0.5 mg IVPUSH Q5M PRN; Protocol PRN Reason: Pain, Severe (Pain Scale 7-10) Last Admin: 10/25/22 08:41 Dose: 0.5 mg Documented By: WARNER Hydromorphone HCl (Hydromorphone Hcl 0.5 Mg/0.5 Ml Syringe) 0.5 mg IVPUSH Q4H PRN; Protocol PRN Reason: Pain, Severe (Pain Scale 7-10) Promethazine HCl 12.5 mg/ (Sodium Chloride) 50.5 mls @ 202 mls/hr IV ONCE PRN PRN Reason: Nausea and Vomiting Dextrose/Sodium Chloride (D5ns) 1,000 mls @ 100 mls/hr IVCONT .Q10H [facility] Last Admin: 10/25/22 08:39 Dose: 100 mls/hr Documented By: WARNER Piperacillin Sod/Tazobactam (Sod 4.5 gm/ Sodium Chloride) 100 mls @ 200 mls/hr IV Q6H [facility] Last Infusion: 10/25/22 09:15 Dose: 0 mls/hr Documented By: WARNER Magnesium Hydroxide (Milk Of Magnesia 30 Ml Oral.Susp) 30 ml PO DAILY PRN PRN Reason: Constipation Ondansetron HCl (Ondansetron Hcl 4 Mg/2 Ml Vial) 4 mg IVPUSH Q8H PRN PRN Reason: Nausea and Vomiting Sodium Chloride (0.9 % Sodium Chloride Flush 3 Ml Syringe) 3 ml IVFLUSH QSHIFT [facility] Last Admin: 10/25/22 09:03 Dose: Not Given Documented By: WARNER Non-Admin Reason: IV Running Zolpidem Tartrate (Zolpidem Tartrate 5 Mg Tablet) 5 mg PO BEDTIME PRN PRN Reason: Insomnia Labs 10/24/22 16:11 10/25/22 06:35 Labs: Laboratory Results - last 24 hr 10/24/22 10/24/22 10/24/22 16:11 16:11 17:14 MCV 82.2 MCH 30.0 MCHC 36.5 H RDW 12.5 Plt Count 187 MPV 9.5 Immature Gran % (Auto) 0.5 H Neut % (Auto) 77.8 H Lymph % (Auto) 11.6 L [place] % (Auto) 9.4 Eos % (Auto) 0.5 Baso % (Auto) 0.2 Lymph # (Auto) 1.4 [place] # (Auto) 1.1 Eos # (Auto) 0.1 Baso # (Auto) 0.0 Abs Immat Gran (auto) 0.06 H Absolute Neuts (auto) 9.4 H Absolute Nucleated RBC 0.000 Nucleated RBC % (auto) 0.0 PT 13.4 H INR 1.1 Anion Gap 12 Estim Creat Clear Calc 127.8 Estimated GFR > 60 POC Glucose Random Glucose 163 H Lactic Acid Calcium 9.5 Magnesium Total Bilirubin 1.0 AST 11 ALT 18 Alkaline Phosphatase 73 Total Protein 6.7 Albumin 4.1 Lipase 10 COVID-19 (ANETA) COVID-19 Clin Com 10/24/22 10/24/22 10/24/22 17:14 17:14 17:14 MCV MCH MCHC RDW Plt Count MPV Immature Gran % (Auto) Neut % (Auto) Lymph % (Auto) [place] % (Auto) Eos % (Auto) Baso % (Auto) Lymph # (Auto) [place] # (Auto) Eos # (Auto) Baso # (Auto) Abs Immat Gran (auto) Absolute Neuts (auto) Absolute Nucleated RBC Nucleated RBC % (auto) PT INR Anion Gap Estim Creat Clear Calc Estimated GFR POC Glucose Random Glucose Lactic Acid 1.2 Calcium Magnesium 2.0 Total Bilirubin AST ALT Alkaline Phosphatase Total Protein Albumin Lipase COVID-19 (ANETA) Negative COVID-Get10 See Note 10/24/22 10/25/22 10/25/22 23:51 06:35 07:02 MCV MCH MCHC RDW Plt Count MPV Immature Gran % (Auto) Neut % (Auto) Lymph % (Auto) [place] % (Auto) Eos % (Auto) Baso % (Auto) Lymph # (Auto) [place] # (Auto) Eos # (Auto) Baso # (Auto) Abs Immat Gran (auto) Absolute Neuts (auto) Absolute Nucleated RBC Nucleated RBC % (auto) PT INR Anion Gap 11 L Estim Creat Clear Calc 129.6 Estimated GFR > 60 POC Glucose 146 H 135 H Random Glucose 133 H Lactic Acid Calcium 8.2 L D Magnesium Total Bilirubin AST ALT Alkaline Phosphatase Total Protein Albumin Lipase COVID-19 (ANETA) COVID-Outitude Clin Com Procedures Date of Service Date of Service: 10/25/22 Progress Note: A&P Assessment and plan (1) Acute appendicitis: Status: Acute Plan POD #1 s/p laparoscopic appendectomy for perforated appendicitis. Doing well post op. VSS. Abdomen benign with appropriate post op tenderness, dressings c/d/i, softly distended. Cont IV abx, pain control. Continue clear liquids for now until evidence of GI function. Encouraged OOB/ambulation and IS use. Patient and comfortable with plan. Time Spent With Patient Time: Total time managing care of this patient today ____ minutes. Quality Stroke Does the patient have a stroke diagnosis?: No VTE Prior VTE?: No VTE Risk Level:: Surgical - low VTE Device Contraindication: Treatment Not Indicated VTE Drug Contraindication: Treatment Not Indicated
--- NOTE | 2022-10-25 10:22 | P.CONCA_ITS ---
History of Present Illness History of Present Illness Date of Service: 10/25/22 Requesting physician: Thien Garcia Chief complaint: Perforated appendicitis, atrial flutter Narrative: [age] gentleman presented with appendicitis and underwent surgery. He is r ecovering from surgery at this point. He is noticed to be in atrial flutter. From the patient description he was has been experiencing some palpitations and dizziness and underwent Holter monitoring recently which showed that he has atrial flutter. He was waiting to see us in office. Right now he has no symptoms. He is saying his abdomen is feeling better. No chest discomfort shortness of breath. No palpitations and he is in rate controlled atrial flutter. He has background of hypertension. He also has hyperlipidemia. He had carotid ultrasound performed at [facility] previously which showed less than 50% stenosis bilaterally in the carotid arteries. No bleeding concerns otherwise. [facility] Past Medical History Medical History Asthma Asthma Back pain Cholelithiasis COVID-19 virus infection Fatty liver Hepatitis C Hypercholesterolemia Obesity (BMI 30-39.9) Obstructive sleep apnea Peripheral neuropathy Peripheral vascular disease Tubular adenoma of colon Tubular adenoma of colon Type 2 diabetes mellitus with hyperglycemia Umbilical hernia Venous stasis Vitamin D deficiency Family History Family History Father No problems noted. Mother Cancer Maternal Aunt Colon cancer Sister Substance abuse Surgical History Surgical History H/O colonoscopy H/O hernia repair H/O wrist surgery Social History Social History Household Members: Spouse Household Members Other:: , sister-in law Housing: House Do you presently have visiting nurse or other home services: No Alcohol intake: never Patient Tobacco Use Status: Former Tobacco user Quit Date: 1980 Tobacco use type: Cigarette Years Smoked: 1980 Smoked in Last 30 Days: No e-Cigarette/Vaping Use: Never Used Second Hand Smoke Exposure: Yes Use of substances other than those prescribed or required for medical reasons: No Substance Use Type: Marijuana Currently Displaying Signs/Symptoms of Drug Intoxication Withdrawal: No Any prior treatment program specific to substance use: No Have you been hit, kicked, punched, or otherwise hurt by someone within the past year? If so, by whom?: No Do you feel safe in your current relationship?: Yes Is there a partner from a previous relationship who is making you feel unsafe now?: No Are you made to feel afraid or neglected: No Synagogue Healthcare Practices: Confucianism Are you DNR?: No Advance Directives: No Advance Directives Information Provided: No Do you have thoughts of harming others: None Do you have a plan to hurt others: No Plan Recently lost weight without trying: No Eating poorly because of decreased appetite: No Nutrition Risks: No Nutritional Risk service: No Current occupational status: employed Current occupational exposures/hazards: No Cognitive needs: No Hearing needs: No Vision needs: Yes Meds Allergies Allergy/AdvReac Type Severity Reaction Status Date / Time No Known Allergies Allergy Verified 10/24/22 15:46 [No Known Allergies*] Active Medications: Current Medications Acetaminophen (Acetaminophen 325 Mg Tablet) 650 mg PO Q6H PRN PRN Reason: Pain, Mild (Pain Scale 1-3) Last Admin: 10/25/22 05:47 Dose: 650 mg Al Hydroxide/Mg Hydroxide (Magnesium Hydrox/Alum Hydrox 30 Ml Oral.Susp) 30 ml PO Q4H PRN PRN Reason: Heartburn/Nausea Albuterol Sulfate (Albuterol Sulfate (0.083%) 2.5 Mg/3 Ml Vial.Neb) 2.5 mg INHALE ONCE PRN PRN Reason: Wheezing Docusate Sodium (Docusate Sodium 100 Mg Capsule) 100 mg PO DAILY PRN PRN Reason: Constipation Fentanyl (Fentanyl Citrate/Pf 100 Mcg/2 Ml Vial) 50 mcg IVPUSH Q5M PRN; Protocol PRN Reason: Pain, Severe (Pain Scale 7-10) Hydromorphone HCl (Hydromorphone Hcl 0.5 Mg/0.5 Ml Syringe) 0.5 mg IVPUSH Q5M PRN; Protocol PRN Reason: Pain, Severe (Pain Scale 7-10) Last Admin: 10/25/22 08:41 Dose: 0.5 mg Hydromorphone HCl (Hydromorphone Hcl 0.5 Mg/0.5 Ml Syringe) 0.5 mg IVPUSH Q4H PRN; Protocol PRN Reason: Pain, Severe (Pain Scale 7-10) Promethazine HCl 12.5 mg/ (Sodium Chloride) 50.5 mls @ 202 mls/hr IV ONCE PRN PRN Reason: Nausea and Vomiting Dextrose/Sodium Chloride (D5ns) 1,000 mls @ 100 mls/hr IVCONT .Q10H [facility] Last Admin: 10/25/22 08:39 Dose: 100 mls/hr Piperacillin Sod/Tazobactam (Sod 4.5 gm/ Sodium Chloride) 100 mls @ 200 mls/hr IV Q6H [facility] Last Infusion: 10/25/22 09:15 Dose: Infused Magnesium Hydroxide (Milk Of Magnesia 30 Ml Oral.Susp) 30 ml PO DAILY PRN PRN Reason: Constipation Ondansetron HCl (Ondansetron Hcl 4 Mg/2 Ml Vial) 4 mg IVPUSH Q8H PRN PRN Reason: Nausea and Vomiting Sodium Chloride (0.9 % Sodium Chloride Flush 3 Ml Syringe) 3 ml IVFLUSH QSHIFT [facility] Last Admin: 10/25/22 09:03 Dose: Not Given Zolpidem Tartrate (Zolpidem Tartrate 5 Mg Tablet) 5 mg PO BEDTIME PRN PRN Reason: Insomnia Physical Exam Vital Signs: Vital Signs: Last Vital Signs Temp 99.0 F 10/25/22 07:27 Pulse 76 10/25/22 07:27 Resp 20 10/25/22 07:27 BP 149/85 H 10/25/22 07:27 Pulse Ox 97 10/25/22 07:27 O2 Del Method Room Air 10/25/22 07:27 O2 Flow Rate 2 10/25/22 03:10 Oxygen Flow Rate 2 10/25/22 00:00 BMI result Body Mass Index 33.0 GENERAL APPEARANCE: in no acute distress, pleasant. NECK: no carotid bruit, no jugular venous distention. SKIN: no suspicious lesions, warm and dry. HEART: no murmurs, irregular rate and rhythm. LUNGS: clear to auscultation bilaterally. ABDOMEN: soft. EXTREMITIES: no edema. PERIPHERAL PULSES: equal. NEUROLOGIC: No gross deficits, AAO X 3 Objective Labs and Meds 10/24/22 16:11 10/25/22 06:35 Lab results: Laboratory Results - last 24 hr 10/24/22 10/24/22 10/24/22 16:11 16:11 17:14 WBC 12.1 H RBC 5.23 Hgb 15.7 Hct 43.0 MCV 82.2 MCH 30.0 MCHC 36.5 H RDW 12.5 Plt Count 187 MPV 9.5 Immature Gran % (Auto) 0.5 H Neut % (Auto) 77.8 H Lymph % (Auto) 11.6 L [place] % (Auto) 9.4 Eos % (Auto) 0.5 Baso % (Auto) 0.2 Lymph # (Auto) 1.4 [place] # (Auto) 1.1 Eos # (Auto) 0.1 Baso # (Auto) 0.0 Abs Immat Gran (auto) 0.06 H Absolute Neuts (auto) 9.4 H Absolute Nucleated RBC 0.000 Nucleated RBC % (auto) 0.0 PT 13.4 H INR 1.1 Sodium 137 Potassium 4.0 Chloride 110 H Carbon Dioxide 19 L Anion Gap 12 BUN 19 H Creatinine 0.90 Estim Creat Clear Calc 127.8 Estimated GFR > 60 POC Glucose Random Glucose 163 H Lactic Acid Calcium 9.5 Magnesium Total Bilirubin 1.0 AST 11 ALT 18 Alkaline Phosphatase 73 Troponin I High Sens Total Protein 6.7 Albumin 4.1 Lipase 10 COVID-19 ([facility]) COVID-19 Clin Com 10/24/22 10/24/22 10/24/22 17:14 17:14 17:14 WBC RBC Hgb Hct MCV MCH MCHC RDW Plt Count MPV Immature Gran % (Auto) Neut % (Auto) Lymph % (Auto) [place] % (Auto) Eos % (Auto) Baso % (Auto) Lymph # (Auto) [place] # (Auto) Eos # (Auto) Baso # (Auto) Abs Immat Gran (auto) Absolute Neuts (auto) Absolute Nucleated RBC Nucleated RBC % (auto) PT INR Sodium Potassium Chloride Carbon Dioxide Anion Gap BUN Creatinine Estim Creat Clear Calc Estimated GFR POC Glucose Random Glucose Lactic Acid Calcium Magnesium 2.0 Total Bilirubin AST ALT Alkaline Phosphatase Troponin I High Sens 3.2 Total Protein Albumin Lipase COVID-19 ([facility]) Negative COVID-19 Clin Com See Note 10/24/22 10/24/22 10/25/22 17:14 23:51 06:35 WBC RBC Hgb Hct MCV MCH MCHC RDW Plt Count MPV Immature Gran % (Auto) Neut % (Auto) Lymph % (Auto) Henderson % (Auto) Eos % (Auto) Baso % (Auto) Lymph # (Auto) Henderson # (Auto) Eos # (Auto) Baso # (Auto) Abs Immat Gran (auto) Absolute Neuts (auto) Absolute Nucleated RBC Nucleated RBC % (auto) PT INR Sodium 140 Potassium 4.5 Chloride 108 Carbon Dioxide 26 Anion Gap 11 L BUN 17 H Creatinine 0.89 Estim Creat Clear Calc 129.6 Estimated GFR > 60 POC Glucose 146 H Random Glucose 133 H Lactic Acid 1.2 Calcium 8.2 L D Magnesium Total Bilirubin AST ALT Alkaline Phosphatase Troponin I High Sens Total Protein Albumin Lipase COVID-19 ([facility]) COVID-19 [employer] 10/25/22 07:02 WBC RBC Hgb Hct MCV MCH MCHC RDW Plt Count MPV Immature Gran % (Auto) Neut % (Auto) Lymph % (Auto) [place] % (Auto) Eos % (Auto) Baso % (Auto) Lymph # (Auto) [place] # (Auto) Eos # (Auto) Baso # (Auto) Abs Immat Gran (auto) Absolute Neuts (auto) Absolute Nucleated RBC Nucleated RBC % (auto) PT INR Sodium Potassium Chloride Carbon Dioxide Anion Gap BUN Creatinine Estim Creat Clear Calc Estimated GFR POC Glucose 135 H Random Glucose Lactic Acid Calcium Magnesium Total Bilirubin AST ALT Alkaline Phosphatase Troponin I High Sens Total Protein Albumin Lipase COVID-19 ([facility]) COVID-19 Clin Com Imaging Radiologist's impression: Impressions Chest X-Ray 10/24/22 17:30 IMPRESSION: Unremarkable examination. Abdomen/Pelvis CT 10/24/22 18:22 IMPRESSION: 1. Acute appendicitis with significant periappendiceal inflammatory changes. No abscess. Please note in a patient of this age, an obstructing lesion at the cecal base should be excluded. No gross abnormality noted on this nonenhanced CT scan. Incidental 3 mm left lower lobe pulmonary nodule. According to the UPDATED 2017 Fleischner Society recommendations, the advised follow-up imaging for solid nodules < 6 mm is: LOW RISK PATIENT: No routine follow-up. HIGH RISK PATIENT: Optional CT at 12 months. 1. Incidental gallstones. 2. Nonspecific lipodystrophy. Fleischner guidelines were followed. Assessment and Plan (1) Acute appendicitis: Status: Acute (2) Atrial flutter: Status: Acute Plan [age] gentleman presented with abdominal pain and acute appendicitis. He is status post laparoscopic appendectomy for perforated appendicitis. He is recovering and improving at this point. He had atrial flutter diagnosed by Holter monitoring previously. At times he has noticed palpitations and dizziness. Right now he has rate controlled atrial flutter and has no symptoms. His chads Vasc score currently is 2 based on hypertension and carotid plaque noticed on previous ultrasound. Also in January return 63 and gets 1 more point on the chads Vasc score. I think as he recovers further and we are clear that he does not need any further surgical interventions he should be anticoagulated for future stroke prevention. Adding metoprolol 25 mg twice a day. If he tolerates this then eventually will change it to Toprol XL. If rate control is difficult then I will consider digoxin loading but right now it is not required. We will review echocardiogram. Thank you for allowing me to participate in the care of your patient. Please feel free to contact me if you have any questions. Time Spent With Patient Time: Total time managing care of this patient today ____ minutes. Procedures Date of Service Date of Service: 10/25/22
--- NOTE | 2022-10-25 10:44 | MHC.CM.PN ---
Patient is not yet medically cleared for dc (clear liquids for now until evidence of GI function); Home is the goal and CM will continue to follow.
[2022-10-25 10:59] LABS: Glucose, Whole Blood 167 mg/dL (60-115)
[2022-10-25] MEDS: Metoprolol Tartrate 25 MG TABLET PO ×2 (11:44→21:25)
[2022-10-25 16:12] LABS: Glucose, Whole Blood 162 mg/dL (60-115)
[2022-10-25 18:06] LABS: Appearance Urine Cloudy; Color Urine Dark Yellow; Glucose Urine UA 250 mg/dL (Negative); Leukocyte Esterase Urine Negative (Negative); Nitrite Urine Negative (Negative); PH 5.5 (5.0-9.0); Specific Gravity - Urine >= 1.030 (1.005-1.025); UMIC TRIGGER UACC YES; Urine Blood Trace (Negative); Urine Ketones Negative (Negative); Urine Protein 30 (1+) mg/dL (Neg-Trace)
[2022-10-25 18:24] LABS: Bacteria Urine None Seen (None Seen); Hyaline Casts Urine 0-2 /LPF (0-2); Squamous Epithelial Cell Urine 0-2 /HPF (0-2); WBC Urine 0-5 /HPF (0-5)
[2022-10-25 19:39] LABS: Glucose, Whole Blood 163 mg/dL (60-115)
[2022-10-26] VITALS (9 sets, daily range): BP systolic 131–179; BP diastolic 84–93; PULSE 77–81; RESP 16–22; TEMP 36.3–37.1; O2SAT 93–98
[2022-10-26] MEDS: HYDROmorphone HCl 0.5 MG/0.5 ML SYRINGE IVPUSH ×4 (01:46→21:19)
[2022-10-26] MEDS: Piperacillin Sodium/Tazobactam 4.5 GM in 0.9 % Sodium Chloride 100 ML IV ×4 (01:48→20:44)
[2022-10-26] MEDS: 0.9 % Sodium Chloride Flush 3 ML SYRINGE IVFLUSH ×3 (01:48→21:19)
[2022-10-26] MEDS: Dextrose 5 % and 0.9 % NaCl 1,000 ML 100 ML IVCONT ×2 (04:42→13:54)
[2022-10-26 07:41] LABS: Glucose, Whole Blood 136 mg/dL (60-115)
--- NOTE | 2022-10-26 08:46 | PM.PNGS ---
Subjective Subjective Date of Service: 10/26/22 <Marcy Harris PA-C - Last Filed: 10/26/22 08:49> 10/26/22 <Thien Garcia MD - Last Filed: 10/26/22 09:31> Interval history: C/o lower abdominal gas pains. Denies nausea, vomiting. Had some liquids last night. Has not been OOB since surgery and has been lying in bed. Passed a small amount of flatus. <Marcy Harris PA-C - Last Filed: 10/26/22 08:49> Physical Exam Vital Signs: Vital Signs: Last Vital Signs Temp 97.4 F 10/26/22 07:25 Pulse 78 10/26/22 07:25 Resp 20 10/26/22 07:25 BP 149/89 H 10/26/22 07:25 Pulse Ox 95 10/26/22 07:25 O2 Del Method Room Air 10/26/22 07:25 O2 Flow Rate 2 10/26/22 03:44 Oxygen Flow Rate 2 10/25/22 00:00 BMI result Body Mass Index 33.0 <NEVAEH Prescott Last Filed: 10/26/22 08:49> Const: General: comfortable, no acute distress and alert <NEVAEH Prescott Last Filed: 10/26/22 08:49> Orientation/consciousness: patient oriented x3 <NEVAEH Prescott Last Filed: 10/26/22 08:49> Resp: Effort & Inspection: normal respiratory effort <NEVAEH Prescott Last Filed: 10/26/22 08:49> Cardio: Rate: regular rate <NEVAEH Prescott Last Filed: 10/26/22 08:49> GI: Inspection: Yes distended and Yes incision (clean) <NEVAEH Prescott Last Filed: 10/26/22 08:49> Palpation (GI): Soft to palpation, Tenderness to palpation present (GI) (mild incisional), no guarding and not rigid <NEVAEH Prescott Last Filed: 10/26/22 08:49> Percussion: Yes tympanic to percussion <Marcy Harris PA-C - Last Filed: 10/26/22 08:49> Skin: General skin exam: no rashes or lesions noted <Marcy Harris PA-C - Last Filed: 10/26/22 08:49> Neuro: General: patient oriented x3 <Marcy Harris PA-C - Last Filed: 10/26/22 08:49> Objective Data Active Medications Acetaminophen (Acetaminophen 325 Mg Tablet) 650 mg PO Q6H PRN PRN Reason: Pain, Mild (Pain Scale 1-3) Last Admin: 10/25/22 05:47 Dose: 650 mg Documented By: YANIV Al Hydroxide/Mg Hydroxide (Magnesium Hydrox/Alum Hydrox 30 Ml Oral.Susp) 30 ml PO Q4H PRN PRN Reason: Heartburn/Nausea Albuterol Sulfate (Albuterol Sulfate (0.083%) 2.5 Mg/3 Ml Vial.Neb) 2.5 mg INHALE ONCE PRN PRN Reason: Wheezing Docusate Sodium (Docusate Sodium 100 Mg Capsule) 100 mg PO DAILY PRN PRN Reason: Constipation Fentanyl (Fentanyl Citrate/Pf 100 Mcg/2 Ml Vial) 50 mcg IVPUSH Q5M PRN; Protocol PRN Reason: Pain, Severe (Pain Scale 7-10) Hydromorphone HCl (Hydromorphone Hcl 0.5 Mg/0.5 Ml Syringe) 0.5 mg IVPUSH Q5M PRN; Protocol PRN Reason: Pain, Severe (Pain Scale 7-10) Last Admin: 10/25/22 08:41 Dose: 0.5 mg Documented By: WARNER Hydromorphone HCl (Hydromorphone Hcl 0.5 Mg/0.5 Ml Syringe) 0.5 mg IVPUSH Q4H PRN; Protocol PRN Reason: Pain, Severe (Pain Scale 7-10) Last Admin: 10/26/22 01:46 Dose: 0.5 mg Documented By: HAY Promethazine HCl 12.5 mg/ (Sodium Chloride) 50.5 mls @ 202 mls/hr IV ONCE PRN PRN Reason: Nausea and Vomiting Dextrose/Sodium Chloride (D5ns) 1,000 mls @ 100 mls/hr IVCONT .Q10H [facility] Last Admin: 10/26/22 04:42 Dose: 100 mls/hr Documented By: HAY Piperacillin Sod/Tazobactam (Sod 4.5 gm/ Sodium Chloride) 100 mls @ 200 mls/hr IV Q6H [facility] Last Infusion: 10/26/22 02:20 Dose: 0 mls/hr Documented By: HAY Magnesium Hydroxide (Milk Of Magnesia 30 Ml Oral.Susp) 30 ml PO DAILY PRN PRN Reason: Constipation Metoprolol Tartrate (Metoprolol Tartrate 25 Mg Tablet) 25 mg PO BID [facility]; Protocol Last Admin: 10/25/22 21:25 Dose: 25 mg Documented By: TIM Ondansetron HCl (Ondansetron Hcl 4 Mg/2 Ml Vial) 4 mg IVPUSH Q8H PRN PRN Reason: Nausea and Vomiting Sodium Chloride (0.9 % Sodium Chloride Flush 3 Ml Syringe) 3 ml IVFLUSH QSHIFT [facility] Last Admin: 10/26/22 01:48 Dose: 3 ml Documented By: HAY Zolpidem Tartrate (Zolpidem Tartrate 5 Mg Tablet) 5 mg PO BEDTIME PRN PRN Reason: Insomnia <Marcy Harris PA-C - Last Filed: 10/26/22 08:49> Labs CBC & Chem 7: 10/24/22 16:11 10/25/22 06:35 <Marcy Harris PA-C - Last Filed: 10/26/22 08:49> Labs: Laboratory Results - last 24 hr 10/25/22 10/25/22 10/25/22 10:55 16:08 17:36 POC Glucose 167 H 162 H Urine Color Dark Yellow Urine Appearance Cloudy Urine pH 5.5 Ur Specific [place] >= 1.030 H Urine Protein 30 (1+) H Urine Glucose (UA) 250 H Urine Ketones Negative Urine Blood Trace H Urine Nitrite Negative Ur Leukocyte Esterase Negative Urine RBC 6-10 H Urine WBC 0-5 Ur Squamous Epith Cells 0-2 Urine Bacteria None Seen Hyaline Casts 0-2 10/25/22 10/26/22 19:26 07:27 POC Glucose 163 H 136 H Urine Color Urine Appearance Urine pH Ur Specific [place] Urine Protein Urine Glucose (UA) Urine Ketones Urine Blood Urine Nitrite Ur Leukocyte Esterase Urine RBC Urine WBC Ur Squamous Epith Cells Urine Bacteria Hyaline Casts <Marcy Harris PA-C - Last Filed: 10/26/22 08:49> Microbiology Microbiology Results: Microbiology 10/24/22 18:04 Blood Culture - Preliminary Blood - Venous No growth after 24 hours. 10/24/22 17:14 Blood Culture - Preliminary Blood - Venous No growth after 24 hours. <Marcy Harris PA-C - Last Filed: 10/26/22 08:49> Procedures Date of Service Date of Service: 10/26/22 <Marcy Harris PA-C - Last Filed: 10/26/22 08:49> 10/26/22 <Thien Garcia MD - Last Filed: 10/26/22 09:31> Progress Note: A&P Assessment and plan (1) Acute appendicitis: Status: Acute <NEVAEH Prescott Last Filed: 10/26/22 08:49> (2) Atrial flutter: Status: Acute <Marcy Harris PA-C - Last Filed: 10/26/22 08:49> (3) S/P laparoscopic appendectomy: Status: Acute <NEVAEH Presctot Last Filed: 10/26/22 08:49> Assessment and Plan: POD #2 s/p laparoscopic appendectomy for perforated appendicitis. C/o gas pains. Has not been OOB. VSS. Abd is distended, incisions clean. Strongly encouraged OOB/ambulation of halls at least 4x today and IS use. Cont IV abx, pain control. Continue clear liquids for now until evidence of GI function. A flutter- cardiology following, metoprolol added. <Marcy Harris PA-C - Last Filed: 10/26/22 08:49> Time Spent With Patient Time: Total time managing care of this patient today ____ minutes. <Marcy Harris PA-C - Last Filed: 10/26/22 08:49> Quality Stroke Does the patient have a stroke diagnosis?: No <NEVAEH Prescott Last Filed: 10/26/22 08:49> VTE Prior VTE?: No <Marcy Harris PA-C - Last Filed: 10/26/22 08:49> VTE Risk Level:: Surgical - low <Marcy Harris PA-C - Last Filed: 10/26/22 08:49> VTE Device Contraindication: Treatment Not Indicated <Marcy Harris PA-C - Last Filed: 10/26/22 08:49> VTE Drug Contraindication: Treatment Not Indicated <Marcy Harris PA-C - Last Filed: 10/26/22 08:49>
[2022-10-26] MEDS: Metoprolol Tartrate 25 MG TABLET PO ×2 (08:48→21:19)
--- NOTE | 2022-10-26 11:20 | P.PNCA_ITS ---
Subjective Subjective Date of Service: 10/26/22 Interval history: Seen examined at bedside. He is sitting in recliner today. Still having some abdominal pain and received pain medications. Physical Exam Vital Signs: Last Vital Signs Temp 97.4 F 10/26/22 07:25 Pulse 78 10/26/22 07:25 Resp 22 H 10/26/22 08:43 BP 149/89 H 10/26/22 07:25 Pulse Ox 95 10/26/22 07:25 O2 Del Method Room Air 10/26/22 07:25 O2 Flow Rate 2 10/26/22 03:44 Oxygen Flow Rate 2 10/25/22 00:00 BMI result Body Mass Index 33.0 GENERAL APPEARANCE: in no acute distress, pleasant. NECK: no carotid bruit, no jugular venous distention. SKIN: no suspicious lesions, warm and dry. HEART: no murmurs, irregular rate and rhythm. LUNGS: clear to auscultation bilaterally. ABDOMEN: soft. EXTREMITIES: no edema. PERIPHERAL PULSES: equal. NEUROLOGIC: No gross deficits, AAO X 3 Objective Labs and Meds 10/24/22 16:11 10/25/22 06:35 Lab results: Laboratory Results - last 24 hr 10/25/22 10/25/22 10/25/22 16:08 17:36 19:26 POC Glucose 162 H 163 H Urine Color Dark Yellow Urine Appearance Cloudy Urine pH 5.5 Ur Specific [place] >= 1.030 H Urine Protein 30 (1+) H Urine Glucose (UA) 250 H Urine Ketones Negative Urine Blood Trace H Urine Nitrite Negative Ur Leukocyte Esterase Negative Urine RBC 6-10 H Urine WBC 0-5 Ur Squamous Epith Cells 0-2 Urine Bacteria None Seen Hyaline Casts 0-2 10/26/22 07:27 POC Glucose 136 H Urine Color Urine Appearance Urine pH Ur Specific [place] Urine Protein Urine Glucose (UA) Urine Ketones Urine Blood Urine Nitrite Ur Leukocyte Esterase Urine RBC Urine WBC Ur Squamous Epith Cells Urine Bacteria Hyaline Casts Progress Note: A&P Assessment and plan (1) Acute appendicitis: Status: Acute Plan Pleasant 62 gentleman who is presenting for acute appendicitis and status post laparoscopic appendectomy at this stage. He had atrial flutter before presentation to the hospital and had Holter monitoring performed showing atrial flutter. Mostly he is asymptomatic from atrial flutter but I thing when he is significantly tachycardia he gets symptoms like dizziness. If he is tolerating p.o. then continue metoprolol. Once he is stable and co nsistently taking p.o. with no plan to go to operating room then he should be started on apixaban 5 mg twice a day for anticoagulation. Will do further workup and testing as outpatient. We will do echocardiography inpatient. Thank you for allowing me to participate in the care of your patient. Please feel free to contact me if you have any questions. Time Spent With Patient Time: Total time managing care of this patient today ____ minutes. Progress Note: Quality Stroke Does the patient have a stroke diagnosis?: No Procedures Date of Service Date of Service: 10/26/22
[2022-10-26 11:29] LABS: Glucose, Whole Blood 166 mg/dL (60-115)
[2022-10-26 16:13] LABS: Glucose, Whole Blood 137 mg/dL (60-115)
[2022-10-26 21:02] LABS: Glucose, Whole Blood 123 mg/dL (60-115)
[2022-10-27] VITALS (7 sets, daily range): BP systolic 139–169; BP diastolic 80–96; PULSE 77–83; RESP 17–20; TEMP 36–36.7; O2SAT 94–97
[2022-10-27] MEDS: Piperacillin Sodium/Tazobactam 4.5 GM in 0.9 % Sodium Chloride 100 ML IV ×4 (01:23→19:59)
[2022-10-27 07:26] LABS: Glucose, Whole Blood 112 mg/dL (60-115)
--- NOTE | 2022-10-27 08:32 | P.PNGS_ITS ---
Subjective Subjective Date of Service: 11/02/22 Interval history: States he feels much better today Passing flatus Stools watery Hungry and wants to eat Physical Exam Vital Signs: Vital Signs: Last Vital Signs Temp 97.8 F 10/27/22 08:00 Pulse 79 10/27/22 08:00 Resp 17 10/27/22 08:00 BP 160/80 H 10/27/22 08:00 Pulse Ox 94 10/27/22 08:00 O2 Del Method Room Air 10/27/22 08:00 O2 Flow Rate 2 10/26/22 03:44 Oxygen Flow Rate 2 10/25/22 00:00 BMI result Body Mass Index 33.0 Const: General: comfortable and no acute distress Resp: Effort & Inspection: normal respiratory effort Cardio: Rate: regular rate GI: Other: Incisions clean and dry Palpation (GI): Soft to palpation, not firm and no guarding Objective Data Active Medications Acetaminophen (Acetaminophen 325 Mg Tablet) 650 mg PO Q6H PRN PRN Reason: Pain, Mild (Pain Scale 1-3) Last Admin: 10/25/22 05:47 Dose: 650 mg Documented By: YANIV Al Hydroxide/Mg Hydroxide (Magnesium Hydrox/Alum Hydrox 30 Ml Oral.Susp) 30 ml PO Q4H PRN PRN Reason: Heartburn/Nausea Albuterol Sulfate (Albuterol Sulfate (0.083%) 2.5 Mg/3 Ml Vial.Neb) 2.5 mg INHALE ONCE PRN PRN Reason: Wheezing Docusate Sodium (Docusate Sodium 100 Mg Capsule) 100 mg PO DAILY PRN PRN Reason: Constipation Fentanyl (Fentanyl Citrate/Pf 100 Mcg/2 Ml Vial) 50 mcg IVPUSH Q5M PRN; Bryson col PRN Reason: Pain, Severe (Pain Scale 7-10) Hydromorphone HCl (Hydromorphone Hcl 0.5 Mg/0.5 Ml Syringe) 0.5 mg IVPUSH Q5M PRN; Protocol PRN Reason: Pain, Severe (Pain Scale 7-10) Last Admin: 10/25/22 08:41 Dose: 0.5 mg Documented By: WARNER Hydromorphone HCl (Hydromorphone Hcl 0.5 Mg/0.5 Ml Syringe) 0.5 mg IVPUSH Q4H PRN; Protocol PRN Reason: Pain, Severe (Pain Scale 7-10) Last Admin: 10/26/22 21:19 Dose: 0.5 mg Documented By: CB Promethazine HCl 12.5 mg/ (Sodium Chloride) 50.5 mls @ 202 mls/hr IV ONCE PRN PRN Reason: Nausea and Vomiting Piperacillin Sod/Tazobactam (Sod 4.5 gm/ Sodium Chloride) 100 mls @ 200 mls/hr IV Q6H [facility] Last Infusion: 10/27/22 02:04 Dose: 0 mls/hr Documented By: CB Magnesium Hydroxide (Milk Of Magnesia 30 Ml Oral.Susp) 30 ml PO DAILY PRN PRN Reason: Constipation Metoprolol Tartrate (Metoprolol Tartrate 25 Mg Tablet) 25 mg PO BID [facility]; Protocol Last Admin: 10/26/22 21:19 Dose: 25 mg Documented By: CB Ondansetron HCl (Ondansetron Hcl 4 Mg/2 Ml Vial) 4 mg IVPUSH Q8H PRN PRN Reason: Nausea and Vomiting Sodium Chloride (0.9 % Sodium Chloride Flush 3 Ml Syringe) 3 ml IVFLUSH QSHIFT [facility] Last Admin: 10/26/22 21:19 Dose: 3 ml Documented By: CB Zolpidem Tartrate (Zolpidem Tartrate 5 Mg Tablet) 5 mg PO BEDTIME PRN PRN Reason: Insomnia Labs 10/24/22 16:11 10/25/22 06:35 Labs: Laboratory Results - last 24 hr 10/26/22 10/26/22 10/26/22 11:23 16:10 20:59 POC Glucose 166 H 137 H 123 H 10/27/22 07:21 POC Glucose 112 Microbiology Microbiology Results: Microbiology 10/24/22 18:04 Blood Culture - Preliminary Blood - Venous No growth after 48 hours. 10/24/22 17:14 Blood Culture - Preliminary Blood - Venous No growth after 48 hours. Procedures Date of Service Date of Service: 11/02/22 Progress Note: A&P Assessment and plan (1) S/P laparoscopic appendectomy: Status: Acute Assessment and Plan: Doing well Advance diet Ambulate more On antibiotics - had perforated appendicitis DC planning once tolerating diet Cardiology follow-up for atrial flutter Time Spent With Patient Time: Total time managing care of this patient today ____ minutes. Quality Stroke Does the patient have a stroke diagnosis?: No VTE Prior VTE?: No VTE Risk Level:: Surgical - low VTE Device Contraindication: Treatment Not Indicated VTE Drug Contraindication: Treatment Not Indicated
[2022-10-27] MEDS: Metoprolol Tartrate 25 MG TABLET PO ×2 (08:38→19:59)
[2022-10-27] MEDS: 0.9 % Sodium Chloride Flush 3 ML SYRINGE IVFLUSH ×2 (08:39→15:12)
[2022-10-27 11:02] LABS: Glucose, Whole Blood 136 mg/dL (60-115)
[2022-10-27] MEDS: lisinopriL 10 MG TABLET PO (11:29)
--- NOTE | 2022-10-27 12:13 | PM.PNCARD ---
Subjective Subjective Date of Service: 10/27/22 Interval history: Seen examined at bedside. Clinically improving. In atrial flutter with rate controlled. Blood pressure is elevated. Physical Exam Vital Signs: Last Vital Signs Temp 97.1 F 10/27/22 10:55 Pulse 78 10/27/22 10:55 Resp 19 10/27/22 10:55 BP 164/92 H 10/27/22 10:55 Pulse Ox 96 10/27/22 10:55 O2 Del Method Room Air 10/27/22 10:55 O2 Flow Rate 2 10/26/22 03:44 Oxygen Flow Rate 2 10/25/22 00:00 BMI result Body Mass Index 33.0 GENERAL APPEARANCE: in no acute distress, pleasant. NECK: no carotid bruit, no jugular venous distention. SKIN: no suspicious lesions, warm and dry. HEART: no murmurs, irregular rate and rhythm. LUNGS: clear to auscultation bilaterally. ABDOMEN: soft. EXTREMITIES: no edema. PERIPHERAL PULSES: equal. NEUROLOGIC: No gross deficits, AAO X 3 Objective Labs and Meds 10/24/22 16:11 10/25/22 06:35 Lab results: Laboratory Results - last 24 hr 10/26/22 10/26/22 10/27/22 16:10 20:59 07:21 POC Glucose 137 H 123 H 112 10/27/22 10:58 POC Glucose 136 H Progress Note: A&P Assessment and plan (1) S/P laparoscopic appendectomy: Status: Acute (2) Atrial flutter: Status: Acute Plan [age] gentleman presenting with perforated appendicitis and atrial flutter. Rate controlled at this point. He is status post appendectomy improving. Surgical team has started apixaban 5 mg twice a day. I thing home dose of lisinopril should be resumed today to as blood pressure is rising. We will get echocardiogram on him to assess ejection fraction. Further workup will be done as outpatient. Thank you for allowing me to participate in the care of your patient. Please feel free to contact me if you have any questions. Time Spent With Patient Time: Total time managing care of this patient today ____ minutes. Progress Note: Quality Stroke Does the patient have a stroke diagnosis?: No Procedures Date of Service Date of Service: 10/27/22
[2022-10-27 16:17] LABS: Glucose, Whole Blood 120 mg/dL (60-115)
[2022-10-27] MEDS: oxyCODONE HCl Immed Release 5 MG TABLET 10 MG PO (19:58)
[2022-10-27] MEDS: Acetaminophen 325 MG TABLET 650 MG PO (19:58)
[2022-10-27] MEDS: Apixaban 5 MG TABLET PO (19:59)
[2022-10-27 20:23] LABS: Glucose, Whole Blood 137 mg/dL (60-115)
[2022-10-28] MEDS: Piperacillin Sodium/Tazobactam 4.5 GM in 0.9 % Sodium Chloride 100 ML IV (01:43)
[2022-10-28 03:36] VITALS: BP 137/84; PULSE 78; RESP 18; TEMP 36; O2SAT 96
[2022-10-28 07:10] LABS: Glucose, Whole Blood 108 mg/dL (60-115)
[2022-10-28 07:31] VITALS: BP 162/96; PULSE 79; RESP 20; TEMP 37.2; O2SAT 93
--- NOTE | 2022-10-28 08:42 | P.PNGS_ITS ---
Subjective Subjective Date of Service: 10/28/22 Interval history: Feels ok. Pain is controlled. Tolerating solid diet without nausea or vomiting. OOB and ambulating. Passing flatus and moving his bowels. Would like to go home. Physical Exam Vital Signs: Vital Signs: Last Vital Signs Temp 98.9 F 10/28/22 07:31 Pulse 79 10/28/22 07:31 Resp 20 10/28/22 07:31 BP 162/96 H 10/28/22 07:31 Pulse Ox 93 10/28/22 07:31 O2 Del Method Room Air 10/28/22 07:31 O2 Flow Rate 2 10/26/22 03:44 Oxygen Flow Rate 2 10/25/22 00:00 BMI result Body Mass Index 33.0 Const: General: comfortable, no acute distress and alert Orientation/consci ousness: patient oriented x3 Resp: Effort & Inspection: normal respiratory effort GI: Inspection: Yes distended (mildly) and Yes incision (clean) Palpation (GI): Soft to palpation and Tenderness to palpation present (GI) (mild incisional) Skin: General skin exam: no rashes or lesions noted Neuro: General: patient oriented x3 and moves all extremities Objective Data Active Medications Acetaminophen (Acetaminophen 325 Mg Tablet) 650 mg PO Q6H PRN PRN Reason: Pain, Mild (Pain Scale 1-3) Last Admin: 10/27/22 19:58 Dose: 650 mg Documented By: GEORGINA Al Hydroxide/Mg Hydroxide (Magnesium Hydrox/Alum Hydrox 30 Ml Oral.Susp) 30 ml PO Q4H PRN PRN Reason: Heartburn/Nausea Albuterol Sulfate (Albuterol Sulfate (0.083%) 2.5 Mg/3 Ml Vial.Neb) 2.5 mg INHALE ONCE PRN PRN Reason: Wheezing Apixaban (Apixaban 5 Mg Tablet) 5 mg PO BID LAINE Last Admin: 10/27/22 19:59 Dose: 5 mg Documented By: GEORGINA Docusate Sodium (Docusate Sodium 100 Mg Capsule) 100 mg PO DAILY PRN PRN Reason: Constipation Fentanyl (Fentanyl Citrate/Pf 100 Mcg/2 Ml Vial) 50 mcg IVPUSH Q5M PRN; Protocol PRN Reason: Pain, Severe (Pain Scale 7-10) Hydromorphone HCl (Hydromorphone Hcl 0.5 Mg/0.5 Ml Syringe) 0.5 mg IVPUSH Q5M P RN; Protocol PRN Reason: Pain, Severe (Pain Scale 7-10) Last Admin: 10/25/22 08:41 Dose: 0.5 mg Documented By: WARNER Hydromorphone HCl (Hydromorphone Hcl 0.5 Mg/0.5 Ml Syringe) 0.5 mg IVPUSH Q4H PRN; Protocol PRN Reason: Pain, Severe (Pain Scale 7-10) Last Admin: 10/26/22 21:19 Dose: 0.5 mg Documented By: CB Promethazine HCl 12.5 mg/ (Sodium Chloride) 50.5 mls @ 202 mls/hr IV ONCE PRN PRN Reason: Nausea and Vomiting Piperacillin Sod/Tazobactam (Sod 4.5 gm/ Sodium Chloride) 100 mls @ 200 mls/hr IV Q6H REPLACED BY [facility] Last Infusion: 10/28/22 02:17 Dose: 0 mls/hr Documented By: GEORGINA Lisinopril (Lisinopril 10 Mg Tablet) 10 mg PO DAILY REPLACED BY [facility]; Protocol Last Admin: 10/27/22 11:29 Dose: 10 mg Documented By: CATHY Magnesium Hydroxide (Milk Of Magnesia 30 Ml Oral.Susp) 30 ml PO DAILY PRN PRN Reason: Constipation Metoprolol Tartrate (Metoprolol Tartrate 25 Mg Tablet) 25 mg PO BID REPLACED BY [facility]; Protocol Last Admin: 10/27/22 19:59 Dose: 25 mg Documented By: GEORGINA Ondansetron HCl (Ondansetron Hcl 4 Mg/2 Ml Vial) 4 mg IVPUSH Q8H PRN PRN Reason: Nausea and Vomiting Oxycodone HCl (Oxycodone Hcl Immed Release 5 Mg Tablet) 5 mg PO Q4H PRN PRN Reason: Pain, Moderate(Pain Scale 4-6) Oxycodone HCl (Oxycodone Hcl Immed Release 5 Mg Tablet) 10 mg PO Q4H PRN PRN Reason: Pain, Severe (Pain Scale 7-10) Last Admin: 10/27/22 19:58 Dose: 10 mg Documented By: GEORGINA Sodium Chloride (0.9 % Sodium Chloride Flush 3 Ml Syringe) [facility] Last Admin: 10/27/22 23:04 Dose: Not Given Documented By: GEORGINA Non-Admin Reason: Previously Administered Zolpidem Tartrate (Zolpidem Tartrate 5 Mg Tablet) 5 mg PO BEDTIME PRN PRN Reason: Insomnia Labs 10/24/22 16:11 10/25/22 06:35 Labs: Laboratory Results - last 24 hr 10/27/22 10/27/22 10/27/22 10:58 16:13 20:19 POC Glucose 136 H 120 H 137 H 10/28/22 07:06 POC Glucose 108 Procedures Date of Service Date of Service: 10/28/22 Progress Note: A&P Assessment and plan (1) S/P laparoscopic appendectomy: Status: Acute (2) Acute appendicitis: Status: Acute (3) Atrial flutter: Status: Acute Plan 62 year old male admitted with perforated appendicitis now POD #4 s/p lap appy. He is doing well post op with adequate pain control, tolerating a solid diet and good GI function. His abdomen is benign with clean incisions. He feels ready for dc to home. Dc to home today on course of PO augmentin with f/u in office in 1 week. A flutter- on metoprolol, started on apixaban yesterday per cardiology. F/u in office upon discharge. Time Spent With Patient Time: Total time managing care of this patient today ____ minutes. Quality Stroke Does the patient have a stroke diagnosis?: No VTE Prior VTE?: No VTE Risk Level:: Surgical - low VTE Device Contraindication: Treatment Not Indicated VTE Drug Contraindication: Treatment Not Indicated
[2022-10-28] MEDS: oxyCODONE HCl Immed Release 5 MG TABLET 10 MG PO (08:55)
[2022-10-28] MEDS: lisinopriL 10 MG TABLET PO (08:56)
[2022-10-28] MEDS: Apixaban 5 MG TABLET PO (08:56)
[2022-10-28] MEDS: 0.9 % Sodium Chloride Flush 3 ML SYRINGE IVFLUSH (08:56)
[2022-10-28] MEDS: Metoprolol Tartrate 25 MG TABLET PO (08:56)
[2022-10-28 10:53] LABS: Glucose, Whole Blood 177 mg/dL (60-115)
--- NOTE | 2022-10-28 11:50 | MHC.CM.PN ---
Pt medically cleared for discharge home self-care. Pts transported him home.
--- NOTE | 2022-11-09 14:48 | P.DS_ITS ---
DS: Providers Provider Date of Service: 11/04/22 Date of admission: 10/24/22 22:21 Date of discharge: 10/28/22 Primary care physician: Shannon Jones MD Attending physician on admission: Thien Garcia Consults: 10/24/22 22:21 Consult to Cardiology Routine Consulting Provider: [facility] [place] Cardiovascular Services Reason for consultation: Recent diagnosis of atrial flutter. No cardiology follow-up Has provider been notified: No Attending physician on discharge: Thien Garcia DS: Diagnosis Discharge Diagnosis (1) S/P laparoscopic appendectomy: Status: Acute DS: Summary Hospital Course Hospital Course: HPI AT ADMISSION: Natan Agarwal is a 62 year old male with a plethora of medical problems and comorbidities (please see problem List) who presents here with a 4 day history of progressively worsening right lower quadrant pain. Because of progression of symptoms, he presented emergency department where he underwent further workup. This included the CT scan demonstrating significant appendicitis and periappendicitis. Chart and scan were reviewed and patient evaluated. Patient has new diagnosis of atrial fib/flutter and has not seen a carpet sewer for this yet. HOSPITAL COURSE: On 10/24/22, a laparoscopic appendectomy was performed by Dr. Garcia without complication. The patient was found to have locally perforated appendicitis. He was admitted following the procedure for IV antibiotics. Cardiology was consulted for new onset atrial flutter. He had an uncomplicated post operative course. His diet was advanced slowly from clear liquids once he had evidence of GI function. He had difficulty with gas pains and this improved with ambulation and increasing activity. He was kept inpatient for 5 days for IV abx, pain control and return of GI function. On the day of discharge, he was tolerating a solid diet without nausea or vomiting. His pain was controlled on PO analgesics. He was ambulating without difficulty. His abd was benign with clean incisions. He was discharged to home on 10/28/22 in stable condition. A flutter- He was started on metoprolol tartrate 25mg PO and then eliquis 5mg PO BID on POD #2. He was rate controlled. Plan was for further work up outpatient. He is to follow up with Dr. Birmingham upon discharge. Status at Discharge Functional status at discharge: independent ambulation Overall status at discharge: patient is progressing back to baseline Time Spent with Patient Time attestation: Total time managing care of this patient today ____ minutes. Discharge coordination time: Less than 30 minutes Quality: Safe Use of Opioids Does Pt have an Active Cancer Diagnosis on the Problem List?: No Quality: Stroke Does the patient have a stroke diagnosis?: No Physical Exam Vital Signs: Vital Signs: Last Vital Signs Temp 98.9 F 10/28/22 07:31 Pulse 79 10/28/22 07:31 Resp 20 10/28/22 07:31 BP 162/96 H 10/28/22 07:31 Pulse Ox 93 10/28/22 07:31 O2 Del Method Room Air 10/28/22 07:31 O2 Flow Rate 2 10/26/22 03:44 Oxygen Flow Rate 2 10/25/22 00:00 BMI result Body Mass Index 33.0 Const: General: comfortable, no acute distress and alert Orientation/consciousness: patient oriented x3 Resp: Effort & Inspection: normal respiratory effort GI: Inspection: No distended and Yes incision (clean) Palpation (GI): Soft to palpation, Tenderness to palpation present (GI) (mild incisional), no guarding and not rigid Skin: General skin exam: no rashes or lesions noted Neuro: General: patient oriented x3 and moves all extremities DS: Data Data Completed and Pending Completed studies during hospitalization [Text1]: 10/24/22 21:50 Surgical [PTH] Routine Appendix, appendectomy: Acute appendicitis and periappendicitis with fibrinous adhesions Procedures Resection of Appendix, Percutaneous Endoscopic Approach (10/24/22) Discharge Plan Discharge Anticipated Discharge Date/Time: 10/28/22 11:09 Patient Disposition: Home, Self-Care Discharge Diagnosis: perforated appendicitis, atrial flutter Referrals: Luciano Birmingham MD [Physician] - 1 Month Po,Shannon Banerjee MD [Primary Care Provider] - Thien Garcia MD [Physician] - 1 Week Discharge Medications: New metoprolol tartrate 25 mg Tablet 25 mg PO BID Qty: 90 0RF Protocol: Hold for SBP/HR < HOLD for SBP < : 90 HOLD for HR < : 60 Eliquis 5 mg tablet 5 mg PO BID Qty: 90 0RF oxycodone 5 mg tablet 5 mg PO Q4H PRN (Reason: pain (scale score 7-10)) Qty: 20 0RF Rx Instructions: Partial Fill upon patient request. No Action (DME) comp.stocking,thigh,long,large Misc See Rx Instructions .Route Qty: 2 3RF Rx Instructions: As directed 20-30 mm HG Discharge Orders: Discharge Order (Routine); Ordered 10/28/22 Ordered By: Marcy Harris Diet: Advance to usual diet Activity on Discharge: No heavy lifting Stand Alone Forms: Patient Portal Discharge page Activity Restrictions/Additional Instructions: Apply an ice pack for short intervals (20 minutes on, followed by at least 20 minutes off) for the first 2 days. Do not apply heat. Do not use creams, lotions, or topical antibiotics. These can cause infection or allergic reaction. Ok to shower 48 hours after your surgery. Remove dressings in 2 days and replace as needed. You have steri strips (small white cloth strips) covering your incision- these will fall off ~1 week. Follow up in office with Dr. Garcia in 1 week. ([phone]) No heavy lifting (>10lbs) or strenuous activity! Call Your Doctor If: -Your temperature exceeds 101.5? F -You experience excessive pain or swelling -You have an unexpected reaction to medication -You have excessive bleeding -You experience continued vomiting/nausea -Your incision begins to separate -Your incision shows signs of infection such as increased redness, swelling, excessive pain, drainage (light blood or clear fluid is normal) or heat Care Plan Goals: Return to baseline health and resume normal activities following recovery period. Health Concerns: perforated appendicitis hypertension atrial flutter Plan of Treatment: s/p laparoscopic appendectomy antibiotics Start metoprolol, eliquis F/u in office in [address] Garcia; follow up with cardiology Assessment: Doing well post op. Discharge Date/Time: 10/28/22 11:30
== END 2022-10-28 11:30 | disposition home or self-care (01) | DRG 233 ==
LOC: HO.ED 19:52 → HO.EDOVER 22:36 → HO.IMC 23:10
PROVIDERS: Nurse Practitioner Family; Admitting Provider Surgery; Emergency Provider Emergency Medicine; PCP Internal Medicine; Visit Provider Surgery
PROC: 0DTJ4ZZ Resection of Appendix, Percutaneous Endoscopic Approach (ICD-10-PCS; CPT 44970; principal; 2022-10-24 20:15)
DX: K35.32 Acute appendicitis with perforation, localized peritonitis, and gangrene, without abscess (principal); E11.42 Type 2 diabetes mellitus with diabetic polyneuropathy; E11.51 Type 2 diabetes mellitus with diabetic peripheral angiopathy without gangrene; I48.92 Unspecified atrial flutter; E78.00 Pure hypercholesterolemia, unspecified; E66.01 Morbid (severe) obesity due to excess calories; Z68.33 Body mass index [BMI] 33.0-33.9, adult; Z20.822 Contact with and (suspected) exposure to COVID-19; Z87.891 Personal history of nicotine dependence; Z79.899 Other long term (current) drug therapy
CPT/HCPCS: 36415; 71046; 74177; 80048; 80053; 81001; 82947; 83605; 83690; 83735; 84484; 85025; 85610; 87040; 87635; 88304; 93005; 99285; J0131; J1170; J1885; J2250; J2270; J2371; J2405; J2543; J3010; Q9957; Q9967

== ENCOUNTER → 2022-10-24 17:15 | Outpatient (BNV) | payer OTHER, SELFPAY | PROVIDERS: Emergency Provider Emergency Medicine; PCP Internal Medicine; Visit Provider Surgery | DX: Z90.49 Acquired absence of other specified parts of digestive tract (principal) | CPT/HCPCS: 44970; 99024; 99223 ==

== ENCOUNTER → 2022-10-24 22:21 | Outpatient (BNV) | payer OTHER, SELFPAY | PROVIDERS: Admitting Provider Surgery; Emergency Provider Emergency Medicine; PCP Internal Medicine; Visit Provider Internal Medicine Cardiovascular Disease | DX: Z90.49 Acquired absence of other specified parts of digestive tract (principal); I48.92 Unspecified atrial flutter | CPT/HCPCS: 99222; 99232 ==

== ENCOUNTER 2022-11-03 10:16 | Outpatient (AMB) | payer OTHER, SELFPAY ==
[2022-11-03 10:22] VITALS: BP 147/85; PULSE 84; BMI 36.6
--- NOTE | 2022-11-03 10:22 | MHC.OFFVIS ---
Intake Vital Signs 11/03/22 10:22 Height 6 ft 2 in Weight 285 lb BMI 36.6 BP 147/85 H Blood Pressure Location Rt brachial Position Sitting Pulse 84 Intake Visit Reasons: s/p laparoscopic appendectomy Intake Note: Patient here s/p lap appy. Reports tenderness on abd. Incisions healing well. Denies bleeding or oozing. Still taking rx pain meds prn. 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 He is doing well. He is tolerating a diet. He is having normal bowel habits. He is slowly but steadily increasing his activity level. He has minimal incisional discomfort. Denies any fever at home. No night sweats PFSH Medical History Asthma Asthma Back pain Cholelithiasis COVID-19 virus infection Fatty liver Hepatitis C Hypercholesterolemia Obesity (BMI 30-39.9) Obstructive sleep apnea Peripheral neuropathy Peripheral vascular disease Tubular adenoma of colon Tubular adenoma of colon Type 2 diabetes mellitus with hyperglycemia Umbilical hernia Venous stasis Vitamin D deficiency Surgical History H/O colonoscopy H/O hernia repair H/O wrist surgery Family History Father No problems noted. Mother Cancer Maternal Aunt Colon cancer Sister Substance abuse Social History Household Members: Spouse Household Members Other:: , sister-in law Housing: House Do you presently have visiting nurse or other home services: No Alcohol intake: never Patient Tobacco Use Status: Former Tobacco user Quit Date: 1980 Tobacco use type: Cigarette Years Smoked: 1980 e-Cigarette/Vaping Use: Never Used Second Hand Smoke Exposure: Yes Substance Use Type: Marijuana service: No Current occupational status: employed Current occupational exposures/hazards: No Cognitive needs: No Hearing needs: No Vision needs: Yes Physical Exam Vital Signs: Last Vital Signs Pulse 84 11/03/22 10:22 BP 147/85 H 09/06/23 10:22 BMI result Body Mass Index 36.6 GI Other: Abdomen soft. All wounds clean dry and intact healing uneventfully. Assessment & Plan Assessment & Plan (1) S/P laparoscopic appendectomy: Code(s): Z90.49 - Acquired absence of other specified parts of digestive tract (2) Acute appendicitis: Code(s): K35.80 - Unspecified acute appendicitis Plan Patient might have been given very specific local instructions and that he should not be lifting anything heavier than to foam box for least 4-6 weeks. He is encouraged to ambulate. All questions were answered. Patient will follow-up p.r.n.. 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 Does not require and note. Coding Level of Care Code Global (65089) Diagnoses S/P laparoscopic appendectomy Z90.49 Acute appendicitis K35.80
== END 2022-11-03 10:31 | disposition home or self-care (01) ==
PROVIDERS: PCP Internal Medicine; Visit Provider Surgery
DX: Z90.49 Acquired absence of other specified parts of digestive tract (principal); K35.80 Unspecified acute appendicitis
CPT/HCPCS: 99024

== ENCOUNTER → 2022-11-03 10:16 | Outpatient (BNVA) | payer OTHER, SELFPAY | PROVIDERS: PCP Internal Medicine; Visit Provider Surgery ==

== ENCOUNTER 2022-11-09 13:43 | Outpatient (AMB) | payer OTHER, SELFPAY ==
[2022-11-09 13:55] VITALS: BP 138/74; PULSE 76; O2SAT 97; BMI 31.9
--- NOTE | 2022-11-09 13:55 | MHC.PC.OV ---
Vital Signs 11/09/22 13:55 11/09/22 14:22 Height 6 ft 7 in Weight 283 lb BMI 31.9 BP 138/74 110/80 Blood Pressure Location Lt brachial Lt brachial Position Sitting Sitting Pulse 76 Pulse Source Pulse Oximeter Pulse Oximetry (%) 97 Oxygen Delivery Method Room Air Intake Visit Reasons: appendix removal surgery F/U Allergies No Known Allergies [No Known Allergies*] Allergy (Verified 11/09/22 13:56) Medication List - Last Reconciled 11/09/22 by Shannon Jones MD apixaban (Eliquis) 5 mg PO BID comp.stocking,thigh,long,large As directed 20-30 mm HG metoprolol tartrate 25 mg See Protocol PO BID oxycodone 5 mg PO Q4H PRN Tobacco use date assessed: 03/10/22 Fall risk assessment: No Falls in past year Last assessed Fall Risk: 11/09/22 Dental Screening Dental Screen Date: 11/09/22 Did you have a dental visit in the last 12 months?: Yes Did you have a dental problem in the last 6 months where you did not have access to dental care?: No Was dental information given to patient?: Patient has dentist HPI appendix removal surgery F/U HPI Details 62-year-old obese male with diabetes mellitus controlled hypercholesterolemia hypertension fatty liver cholelithiasis last seen in August 2022 complete blood work was done in July with an LDL of 119 goal of less than 100. Colonoscopy is up-to-date. Patient had a Holter in September showing atrial flutter. Patient was recently seen in the ER October 24 for right-sided abdominal pain and perforated appendicitis surgery. Incidental finding of a solid nodule on the left lower lung field 3 mm. Patient comes in complaining of lightheaded denies any nausea or vomiting denies any problems with bowel movement right now patient is taking 2 medications only the blood thinner Eliquis and metoprolol. Blood pressure is a little bit on the low side at 110/80. With the dizziness advised blood work right now [facility] Medical History Asthma Asthma Back pain Cholelithiasis COVID-19 virus infection Fatty liver Hepatitis C Hypercholesterolemia Obesity (BMI 30-39.9) Obstructive sleep apnea Peripheral neuropathy Peripheral vascular disease Tubular adenoma of colon Tubular adenoma of colon Type 2 diabetes mellitus with hyperglycemia Umbilical hernia Venous stasis Vitamin D deficiency Surgical History H/O colonoscopy H/O hernia repair H/O wrist surgery Family History Father No problems noted. Mother Cancer Maternal Aunt Colon cancer Sister Substance abuse Social History Household Members: Spouse Household Members Other:: , sister-in law Housing: House Do you presently have visiting nurse or other home services: No Alcohol intake: never Patient Tobacco Use Status: Former Tobacco user Quit Date: 1980 Tobacco use type: Cigarette Years Smoked: 1980 e-Cigarette/Vaping Use: Never Used Second Hand Smoke Exposure: Yes Substance Use Type: Marijuana service: No Current occupational status: employed Current occupational exposures/hazards: No Cognitive needs: No Hearing needs: No Vision needs: Yes Questionnaire PHQ-9 Over the last 2 weeks, how often have you been bothered by any of the following problems? 1. Little interest or pleasure in doing things: not at all 2. Feeling down, depressed, or hopeless: not at all 3. Trouble falling or staying asleep, or sleeping too much: not at all 4. Feeling tired or having little energy: not at all 5. Poor appetite or overeating: not at all 6. Feeling bad about yourself - or that you are a failure or have let yourself or your family down: not at all 7. Trouble concentrating on things, such as reading the newspaper or watching television: not at all 8. Moving or speaking so slowly that other people could have noticed. Or the opposite - being so fidgety or restless that you have been moving around a lot more than usual: not at all 9. Thoughts that you would be better off or of hurting yourself in some way: not at all Total score: 0 Depression Screening Interpretation: Negative Source: Developed by Drs. Cl Sheldon, Ann Gonzalez, Lazaro Barbosa and colleagues, with an educational navdeep from [employer]. Thrive Questionnaire Date Thrive assessed: 10/25/22 AUDIT C Alcohol Use Questionnaire (AUDIT-C) 1. How often do you have a drink containing alcohol?: Monthly or less 2. How many drinks containing alcohol do you have on a typical day when you are drinking?: 1 or 2 3. How often do you have six or more drinks on one occasion?: Never Total Score: 1 Score Reviewed/Action Taken: No JUAN-7 AMB Questionnaire JUAN-7 Date JUAN - 7 assessed: 03/10/22 Source: Developed by Drs. Cl Sheldon, Ann Gonzalez, Lazaro Barbosa and colleagues, with an educational navdeep from [employer]. Physical exam (Primary Care) Vital Signs: Last Vital Signs Pulse 76 11/09/22 13:55 BP 138/74 11/09/22 13:55 Pulse Ox 97 11/09/22 13:55 Oxygen Delivery Method Room Air 11/09/22 13:55 BMI result Body Mass Index 31.9 Tobacco/Smoking Status: Tobacco use Status Tobacco use date assessed 03/10/22 11/09/22 13:56 Patient Tobacco Use Status Former Tobacco user 11/09/22 13:56 Tobacco use type Cigarette 11/09/22 13:56 e-Cigarette/Vaping Use Never Used 11/09/22 13:56 PHQ-9: PHQ-9 Score PHQ-9: Total score 0 11/09/22 14:09 Depression Screening Interpretation: Negative Thrive Assessment: Date of Thrive Assessment Date Thrive assessed 10/25/22 11/09/22 13:56 Const General: alert; No acute distress Eyes Conjunctivae: conjunctivae normal Resp Auscultation: clear to auscultation bilaterally Cardio Rate: regular rate Rhythm: regular rhythm GI Inspection: Yes normal to inspection Extrem General: Yes normal to inspection and No edema Results AMB Hemoglobin A1c AMB Hemoglobin A1c 5.5 % Last Edit by Alexia Liao CMA on 11/09/22 14:10 Results Reviewed Results Reviewed: Laboratory Last Values Hgb A1c (Clinic) 5.5 % (4.0-6.0) 11/09/22 13:56 Assessment and Plan Assessment & Plan (1) S/P laparoscopic appendectomy: Code(s): Z90.49 - Acquired absence of other specified parts of digestive tract Plan: Patient follows up with the surgeon. Presently advised blood work (2) Atrial flutter: Code(s): I48.92 - Unspecified atrial flutter Plan: Holter showing atrial flutter started on anticoagulation. Examination shows irregular heart rate but controlled and not bradycardic (3) HTN (hypertension): Code(s): I10 - Essential (primary) hypertension Qualifiers: Hypertension type: essential hypertension Qualified Code(s): I10 - Essential (primary) hypertension Plan: Continue with blood pressure medication. Decrease salt intake and exercise patient is metoprolol 25 mg b.i.d. (4) Type 2 diabetes mellitus with hyperglycemia: Comment: [facility] Code(s): E11.65 - Type 2 diabetes mellitus with hyperglycemia Qualifiers: Diabetes mellitus fdc insulin use: without press tender long goods use Qualified Code(s): E11.65 - Type 2 diabetes mellitus with hyperglycemia Plan: Decrease the amount of carbohydrate intake, pasta, bread, rice and potatoes are all sugar and that is aside from all the sweet stuff, remember that fruits are good but they are Sweet also. Hemoglobin A1c goal of less than 6.5 patient on diet control (5) Hypercholesterolemia: Code(s): E78.00 - Pure hypercholesterolemia, unspecified Plan: Avoid fried foods, chicken skin, eggs, butter margarine, pastries and meat. Be it pork or beef they have a lot of cholesterol LDL goal of less than 100 and triglyceride of less than 150 patient is on simvastatin 5 mg once a day July 2022 blood work 119 (6) Obesity (BMI 30-39.9): Code(s): E66.9 - Obesity, unspecified Plan: Diet and exercise (7) Cholelithiasis: Code(s): K80.20 - Calculus of gallbladder without cholecystitis without obstruction Plan: Low-fat diet Orders: Orders AMB Hemoglobin A1c Today Z13.9 - Encounter for screening, unspecified Complete Blood Count Auto Diff Today Z90.49 - Acquired absence of other specified parts of digestive tract Comprehensive Met. Panel Today Z90.49 - Acquired absence of other specified parts of digestive tract Thyroid Stimulating Hormone Today Z90.49 - Acquired absence of other specified parts of digestive tract Free T4 (Free Thyroxine) Today Z90.49 - Acquired absence of other specified parts of digestive tract Coding Level of Care Code Est Pt Level 4 (66086) Diagnoses S/P laparoscopic appendectomy Z90.49 Atrial flutter I48.92 Essential hypertension I10 Hypertension type: essential hypertension Type 2 diabetes mellitus with hyperglycemia, without long-term current use of insulin E11.65 Diabetes mellitus press tender long goods insulin use: without press tender long goods use Hypercholesterolemia E78.00 Obesity (BMI 30-39.9) E66.9 Cholelithiasis K80.20 Additional Codes PHQ-9 - 70375 - PHQ-9 Billing: ([id number])
[2022-11-09 14:22] VITALS: BP 110/80
== END 2022-11-09 14:50 | disposition home or self-care (01) ==
PROVIDERS: PCP Internal Medicine; Visit Provider Internal Medicine
DX: K80.20 Calculus of gallbladder without cholecystitis without obstruction (principal); Z90.49 Acquired absence of other specified parts of digestive tract; I10 Essential (primary) hypertension; E11.65 Type 2 diabetes mellitus with hyperglycemia; E78.00 Pure hypercholesterolemia, unspecified; E66.9 Obesity, unspecified
CPT/HCPCS: 83036; 99214

== ENCOUNTER 2022-11-09 14:35 | Outpatient (REF) | payer OTHER, SELFPAY ==
[2022-11-09 14:55] LABS: MANUAL DIFF FLAG NO
[2022-11-09 15:15] LABS: Basophils Absolute Auto 0.1 X10*3/uL (0.0-0.2); Basophils Percent Auto 1.1 % (0-2); Eosinophils Absolute Auto 0.2 X10*3/uL (0.0-0.4); Eosinophils Percent Auto 1.7 % (0-4); Hematocrit 45.3 % (42.0-52.0); Hemoglobin 15.8 g/dl (14.0-18.0); Imm Gran Abs Auto 0.05 X10*3/uL (0.00-0.03); Imm Gran Pct Auto 0.6 % (0.0-0.4); Lymphocytes Absolute Auto 1.9 X10*3/uL (1.2-4.9); Lymphocytes Percent Auto 21.6 % (20-40); Mean Corpuscular HGB Conc 34.9 g/dl (31.0-36.0); Mean Corpuscular Hemoglobin 29.5 pg (27.0-33.0); Mean Corpuscular Volume 84.7 fL (80.0-98.0); Mean Platelet Volume 9.8 fL (9.4-12.4); Monocytes Absolute Auto 0.6 X10*3/uL (0.1-1.2); Monocytes Percent Auto 7.2 % (2-11); Neutrophils Percent Auto 67.8 % (45-73); Platelet Count 294 X10*3/uL (160-400); Red Blood Count 5.35 X10*6/uL (4.60-5.80); Red Cell Distribution Width 12.4 % (11.0-16.0); White Blood Count 8.8 X10*3/uL (4.8-10.8)
[2022-11-09 15:48] LABS: Alanine Aminotransferase 28 U/L (0-40); Albumin Level 4.2 g/dL (3.5-5.0); Alkaline Phosphatase 89 U/L (39-117); Anion Gap 10 (12-20); Aspartate Amino Transferase 13 U/L (5-37); Bilirubin Total 0.5 mg/dL (0.0-1.0); Blood Urea Nitrogen 20 mg/dL (9-16); Calcium 9.7 mg/dL (8.4-10.2); Carbon Dioxide 26 mmol/L (22-29); Chloride 107 mmol/L (96-108); Estimated Glomerular Filt Rate > 60; Glucose Random 167 mg/dL (60-115); Potassium 4.9 mmol/L (3.3-5.1); Sodium 138 mmol/L (135-145); Total Protein 6.9 g/dL (6.5-8.0)
[2022-11-09 16:05] LABS: Free T4 (Free Thyroxine) 0.91 ng/dL (0.71-1.85)
== END 2022-11-09 14:36 | disposition home or self-care (01) ==
LOC: HO.LAB 14:35
PROVIDERS: PCP Internal Medicine; Visit Provider Internal Medicine
DX: Z90.49 Acquired absence of other specified parts of digestive tract (principal)
CPT/HCPCS: 36415; 80053; 84439; 84443; 85025

== ENCOUNTER 2022-12-01 14:23 | Outpatient (AMB) | payer OTHER, SELFPAY ==
[2022-12-01 14:34] VITALS: BP 138/72; PULSE 67; BMI 33.3
--- NOTE | 2022-12-01 14:34 | A.OFFVIS_ITS ---
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 He reports doing well since discharge and has no complaints. He reports compliance and tolerating medications fine. He reports when he gets atrial flutter he will feel lightheaded and feel faint. he reports not feeling those symptoms since he was inpatient. [facility] Medical History (Updated 12/01/22 @ 14:45 by Tayla Lebron NP) Appendicitis Venous stasis Tubular adenoma of colon Asthma COVID-19 virus infection Back pain Fatty liver Hepatitis C Cholelithiasis Peripheral neuropathy Type 2 diabetes mellitus with hyperglycemia Hypercholesterolemia Asthma Obstructive sleep apnea Obesity (BMI 30-39.9) Tubular adenoma of colon Vitamin D deficiency Umbilical hernia Peripheral vascular disease Surgical History H/O hernia repair H/O colonoscopy H/O wrist surgery Family History (Updated 12/01/22 @ 14:46 by Tayla Lebron NP) Father No problems noted. Mother Cancer Maternal Aunt Colon cancer Sister Substance abuse Son Atrial fibrillation Social History Household Members: Spouse Household Members Other:: , sister-in law Housing: House Do you presently have visiting nurse or other home services: No Alcohol intake: never Patient Tobacco Use Status: Former Tobacco user Quit Date: 1980 Tobacco use type: Cigarette Years Smoked: 1980 e-Cigarette/Vaping Use: Never Used Second Hand Smoke Exposure: Yes Substance Use Type: Marijuana service: No Current occupational status: employed Current occupational exposures/hazards: No Cognitive needs: No Hearing needs: No Vision needs: Yes Review of Systems Const Denies chills, Denies fatigue, Denies fever(s), Denies frequent falls, Denies weakness, Denies weight gain and Denies weight loss ENT Denies dizziness Card Denies chest pain, Denies chest pain with activity, Denies syncope, Denies rapid heart rate, Denies pedal edema, Denies irregular heart rhythm, Denies leg edema, Denies lightheadedness, Denies palpitations, Denies dyspnea, Denies dyspnea on exertion, Denies orthopnea and Denies other (LOC) Resp Denies cough, Denies dyspnea and Denies dyspnea on exertion GI Denies hematochezia and Denies change in bowel habits Musc Denies abnormal gait, Denies arthralgias, Denies muscle weakness, Denies numbness, Denies radiating pain into limb and Denies tingling Neuro Denies abnormal gait, Denies dizziness, Denies syncope, Denies frequent falls, Denies numbness, Denies tingling and Denies weakness Endo Denies fatigue and Denies palpitations Physical Exam Vital Signs: Last Vital Signs Pulse 67 12/01/22 14:34 BP 138/72 12/01/22 14:34 BMI result Body Mass Index 33.3 Const General: healthy appearing and no acute distress Orientation/consciousness: patient oriented x3 HEENT Head: Yes normal to inspection Eyes General: appearance normal, both eyes and all related structures Neck Neck: Yes normal visual inspection Chest Chest palpation & inspection: normal inspection of the chest Resp Effort & Inspection: normal respiratory effort Auscultation: clear to auscultation bilaterally Cardio Jugular venous distension: no JVD Palpation: normal PMI Rate: regular rate Rhythm: abnormal rhythm (Atrial Flutter) Heart sounds: S1 normal heart sound present, S2 normal heart sound present, no click, no gallops, no murmurs and no rubs GI Inspection: Yes normal to inspection Palpation (GI): Soft to palpation Skin General skin exam: no rashes or lesions noted Neuro General: patient oriented x3 Extrem General: Yes normal to inspection Psych Appearance: grossly normal Office Procedures EKG Details: EKG today. Rate 69 bpm. Atria flutter. No significant changes. QTC 400ms. 67586-[id number], Complete Assessment & Plan Assessment & Plan (1) Atrial flutter: Code(s): I48.92 - Unspecified atrial flutter (2) HTN (hypertension): Code(s): I10 - Essential (primary) hypertension Qualifiers: Hypertension type: essential hypertension Qualified Code(s): I10 - Essential (primary) hypertension Plan Plan for echocardiogram to assess heart function. Continue medications as pre scribed - sent RX to preferred pharmacy. Report any new or reoccurring symptoms to us. Education on medication compliance and mechanism of action. Will see Dr. Birmingham in 6 months or sooner if needed. Orders: Orders CA echo transthoracic complete Today I10 - Essential (primary) hypertension, I48.92 - Unspecified atrial flutter Medications: Refilled apixaban (Eliquis) 5 mg PO BID 90 tabs 1RF metoprolol tartrate 25 mg See Protocol PO BID 90 tabs 1RF Coding Level of Care Code Est Pt Level 3 (31619) Diagnoses Atrial flutter I48.92 Essential hypertension I10 Hypertension type: essential hypertension CPT Codes EKG - CPT: 70752-[id number], Complete ([id number])
== END 2022-12-01 14:56 | disposition home or self-care (01) ==
PROVIDERS: PCP Internal Medicine; Visit Provider Nurse Practitioner
DX: I48.92 Unspecified atrial flutter (principal); I10 Essential (primary) hypertension
CPT/HCPCS: 93010; 99213

== ENCOUNTER → 2022-12-01 14:23 | Outpatient (BNVA) | payer OTHER, SELFPAY | PROVIDERS: PCP Internal Medicine; Visit Provider Nurse Practitioner | DX: I48.92 Unspecified atrial flutter (principal); I10 Essential (primary) hypertension; Z79.01 Long term (current) use of anticoagulants | CPT/HCPCS: 93005; 99212 ==

== ENCOUNTER 2022-12-28 15:23 | Outpatient (AMB) | payer OTHER, SELFPAY ==
--- NOTE | 2022-12-28 15:28 | A.OFFPC_ITS ---
Vital Signs 12/28/22 15:30 Height 6 ft 7 in Weight 293 lb 8 oz BMI 33.1 BP 124/64 Blood Pressure Location Lt brachial Position Sitting Pulse 79 Pulse Source Pulse Oximeter Pulse Oximetry (%) 97 Oxygen Delivery Method Room Air Intake Visit Reasons: 3 month f/u Intake Note: Patient is here to follow up on HTN, LDDD, DM. Elect Equip Maint Eng Required: No Dynamotor Repairer: Not Required per policy Accompanied by: Self / Same As Patient Allergies No Known Allergies [No Known Allergies*] Allergy (Verified 12/28/22 15:29) Medication List - Last Reconciled 12/28/22 by Shannon Jones MD apixaban (Eliquis) 5 mg PO BID comp.stocking,thigh,long,large As directed 20-30 mm HG cyclobenzaprine 10 mg PO BEDTIME PRN metoprolol tartrate 25 mg See Protocol PO BID oxycodone 5 mg PO Q4H PRN Tobacco use date assessed: 12/28/22 Fall risk assessment: No Falls in past year Last assessed Fall Risk: 12/28/22 Dental Screening Dental Screen Date: 12/28/22 Did you have a dental visit in the last 12 months?: No Did you have a dental problem in the last 6 months where you did not have access to dental care?: No Was dental information given to patient?: No HPI 3 month f/u HPI Details 62-year-old obese male with controlled d iabetes mellitus hypercholesterolemia asthma obstructive sleep apnea lumbar degenerative disc disease peripheral vascular disease with atrial flutter coming in for follow-up. Patient was seen in 11/09/2022 status post laparoscopic appendectomy.. Review of the notes follows up with cardiology November echocardiogram requested. 1 week of low back pain, no fevers, no pain on uriating or BM problem. deny fall ortrauma COUNT INCLUDES THE [facility] Medical History (Updated 12/28/22 @ 16:20 by Shannon Jones MD) Low Back Pain Appendicitis Venous stasis Tubular adenoma of colon Asthma COVID-19 virus infection Back pain Fatty liver Hepatitis C Cholelithiasis Peripheral neuropathy Type 2 diabetes mellitus with hyperglycemia Hypercholesterolemia Asthma Obstructive sleep apnea Obesity (BMI 30-39.9) Tubular adenoma of colon Vitamin D deficiency Umbilical hernia Peripheral vascular disease Surgical History (Updated 12/28/22 @ 15:43 by ANCA Serrano) History of appendectomy H/O hernia repair H/O colonoscopy H/O wrist surgery Family History Father No problems noted. Mother Cancer Maternal Aunt Colon cancer Sister Substance abuse Son Atrial fibrillation Social History Household Members: Spouse Household Members Other:: , sister-in law Housing: House Do you presently have visiting nurse or other home services: No Alcohol intake: never Patient Tobacco Use Status: Former Tobacco user Quit Date: 1980 Tobacco use type: Cigarette Years Smoked: 1980 e-Cigarette/Vaping Use: Never Used Second Hand Smoke Exposure: Yes Substance Use Type: Marijuana service: No Current occupational status: employed Current occupational exposures/hazards: No Cognitive needs: No Hearing needs: No Vision needs: Yes Questionnaire Thrive Questionnaire Date Thrive assessed: 10/25/22 JUAN-7 AMB Questionnaire JUAN-7 Date JUAN - 7 assessed: 03/10/22 Source: Developed by Drs. Cl Sheldon, Ann Gonzalez, Lazaro Barbosa and colleagues, with an educational navdeep from [employer]. Physical exam (Primary Care) Vital Signs: Last Vital Signs Pulse 79 12/28/22 15:30 BP 124/64 12/28/22 15:30 Pulse Ox 97 12/28/22 15:30 Oxygen Delivery Method Room Air 12/28/22 15:30 BMI result Body Mass Index 33.1 Tobacco/Smoking Status: Tobacco use Status Tobacco use date assessed 12/28/22 12/28/22 15:44 Patient Tobacco Use Status Former Tobacco user 12/28/22 15:29 Tobacco use type Cigarette 12/28/22 15:29 e-Cigarette/Vaping Use Never Used 12/28/22 15:29 Thrive Assessment: Date of Thrive Assessment Date Thrive assessed 10/25/22 12/28/22 15:29 Const General: alert; No acute distress Eyes Conjunctivae: conjunctivae normal Resp Auscultation: clear to auscultation bilaterally Cardio Rate: regular rate Rhythm: regular rhythm GI Inspection: Yes normal to inspection Extrem General: Yes normal to inspection and No edema Assessment and Plan Assessment & Plan (1) Type 2 diabetes mellitus with hyperglycemia: Comment: [facility] Code(s): E11.65 - Type 2 diabetes mellitus with hyperglycemia Qualifiers: Diabetes mellitus assisted insulin use: without assisted use Qualified Code(s): E11.65 - Type 2 diabetes mellitus with hyperglycemia Plan: Decrease the amount of carbohydrate intake, pasta, bread, rice and potatoes are all sugar and that is aside from all the sweet stuff, remember that fruits are good but they are Sweet also. Hemoglobin A1c goal of less than 6.5. Patient is on diet control (2) Hypercholesterolemia: Code(s): E78.00 - Pure hypercholesterolemia, unspecified Plan: Avoid fried foods, chicken skin, eggs, butter margarine, pastries and meat. Be it pork or beef they have a lot of cholesterol LDL goal of less than 100 and triglyceride of less than 150 (3) Obstructive sleep apnea: Comment: Patient denies. States has never used his CPAP machine Code(s): G47.33 - Obstructive sleep apnea (adult) (pediatric) Plan: Discussed importance of sleep apnea treatment (4) Obesity (BMI 30-39.9): Code(s): E66.9 - Obesity, unspecified Plan: Diet and exercise (5) HTN (hypertension): Code(s): I10 - Essential (primary) hypertension Qualifiers: Hypertension type: essential hypertension Qualified Code(s): I10 - Essential (primary) hypertension Plan: Continue with blood pressure medication. Decrease salt intake and exercise patient on metoprolol 25 mg twice a day (6) Atrial flutter: Code(s): I48.92 - Unspecified atrial flutter Plan: Continue with anticoagulation 5 mg once a day. October blood work. Echocardiogram pending (7) Low Back Pain: Code(s): M54.50 - Low back pain, unspecified Plan: Heat and Exercise is recommended muscle relaxant prescription sent in. May cause drowsiness Medications: New cyclobenzaprine 10 mg PO BEDTIME PRN 30 tabs 1RF muscle spasm M54.50 - Low back pain, unspecified Coding Level of Care Code Est Pt Level 4 (69328) Diagnoses Type 2 diabetes mellitus with hyperglycemia, without long-term current use of insulin E11.65 Diabetes mellitus assisted insulin use: without ocean transportation intermediary use Hypercholesterolemia E78.00 Obstructive sleep apnea G47.33 Obesity (BMI 30-39.9) E66.9 Essential hypertension I10 Hypertension type: essential hypertension Atrial flutter I48.92 Low Back Pain M54.50
[2022-12-28 15:30] VITALS: BP 124/64; PULSE 79; O2SAT 97; BMI 33.1
== END 2022-12-28 17:33 | disposition home or self-care (01) ==
PROVIDERS: PCP Internal Medicine; Visit Provider Internal Medicine
DX: E11.65 Type 2 diabetes mellitus with hyperglycemia (principal); E66.9 Obesity, unspecified; Z68.33 Body mass index [BMI] 33.0-33.9, adult; I48.92 Unspecified atrial flutter
CPT/HCPCS: 99214

== ENCOUNTER → 2023-01-24 15:43 | Outpatient (REF) | payer OTHER, SELFPAY ==
--- NOTE | 2023-01-24 15:45 | CA_ITS ---
Transthoracic Echocardiogram Patient (Last, First, Middle): Natan Agarwal R Gender: Male Date of : 1960 Age: 62 Procedure Date: 01/24/2023 Procedure Type: Transthoracic Echocardiogram Location: OP Height: 200.66 cm Weight: 134.27 kg BSA: 2.69 m2 Heart Rate: bpm BP: 128 / 80 mmHg [employer]: DONNIE Referring MD: Tayla Lebron NP Cardiac Surgeon: Lino Colon MD Symptoms: I48.92 - Unspecified atrial flutter Study Quality: Fair ECG Rhythm: Atrial flutter Conclusions: - 1. Mildly dilated left ventricle with mild LVH with low normal LV ejection fraction 50-55% 2. Cardiac valves not well visualized with cardiac valvular Dopplers within normal limits 3. Normal measured RV systolic pressure 4. Upper limits of normal ascending aortic size 5. No gross pericardial effusion Findings Left Ventricle Mildly increased left ventricular cavity size. There is mildly increased left ventricular wall thickness. The left ventricular systolic function is low normal. The visually estimated ejection fraction is between 50-55%. Diastolic function is indeterminate on the basis of available data. Right Ventricle Moderately increased right ventricular cavity size. There is normal right ventricular systolic function. Atria The left atrium is likely dilated. Interatrial shunt cannot be excluded. The right atrium was not well visualized. Aortic Valve The aortic valve was not well visualized. There is no aortic valve stenosis. There is no aortic valve regurgitation. Mitral Valve The mitral valve was not well visualized. There is trace mitral valve regurgitation. There is no mitral valve stenosis. Pulmonic Valve The pulmonic valve was not well visualized. Tricuspid Valve The tricuspid valve was not well visualized. There is trace tricuspid valve regurgitation. The right ventricular systolic pressure is normal. The right ventricular systolic pressure is 19 mmHg. Normal right atrial pressure. There is no evidence of pulmonary hypertension. Great Vessels The aorta was not well visualized. The pulmonary artery was not well visualized. Venous The inferior vena cava is normal in size and collapses greater than 50% with inspiration. Pericardium/Pleural There is no evidence of pericardial effusion. Prior Study Comparison No prior study available for comparison. Measurements 2D Linear Measurements IVSd: 1.20 0.6-0.9/0.6-1.0 cm LVIDd: 5.81 3.9-5.3/4.2-5.9 cm LVIDd Index: 2.16 2.4-3.2/2.2-3.1 cm/m2 LVIDs: 3.62 2.0-3.6 cm LVPWd: 1.22 0.7-1.1 cm Ao Root: 3.70 2.1-3.5 cm LA Diam: 3.60 2.7-3.8/3.0-4.0 cm LAIDs Index: 1.34 1.5-2.3 cm/m2 LV Mass: 375.77 67-162/88-224 g LV Mass Index: 139.69 43-95/49-115 g/m2 LVOT Diam: 2.30 3.0+(-)1.3 cm 2D Systolic Function EF 4C: 54.40 >55% EF 2C: 51.50 >55% EF BiP: 50.30 >55% Mitral Valve MV Pk E: 0.46 MV PK A: 0.42 MV Decel Time: 110.00 E/A: 1.10 E'Lateral: 10.10 E'Medial: 10.10 E/E' Med: 4.60 E/E' Lat: 4.60 PHT: 32.00 MVA PHT: 6.88 Decel Barren: 4.19 Aortic Valve AoV Pk Guero: 0.99 AoV Mn Guero: 0.62 AoV VTI: 0.20 AoV Pk Grad: 4.00 Aov Mn Grad: 2.00 SHORTY Cont.VTI: 3.26 LVOT LVOT Pk Guero: 0.82 LVOT Mn Guero: 0.54 LVOT VTI: 0.16 LVOT Pk Grad: 3.00 LVOT Mn Grad: 1.00 LVOT Diam: 2.30 LVOT Area: 4.15 Diastolic Function MV Pk E: 0.46 MV Pk A: 0.42 E/A: 1.10 E'Medial: 10.10 E/E' Med: 4.60 E' Laterial: 10.10 E/E' Lat: 4.60 Right Ventricle TAPSE (mm): 27.00 TVS' Guero: 14.00 Tricuspid Valve TR Pk Guero: 2.00 TR Pk Grad: 16.00 RA Press: 3.00 RVSP: 19.00 Great Vessels Aorta Ao Root-2D: 3.70 2.0-3.7 cm Ao Asc: 3.60 2.1-3.4 cm Pulmonary Valve PV Pk Guero: 0.96 Peak PV Grad: 4.00 Updated in Other Vendor System with Status of Final Lino Colon MD electronically signed on 01/24/2023 5:24:22 PM with status of Final
== END ==
LOC: HO.CARD 15:43
PROVIDERS: PCP Internal Medicine; Visit Provider Nurse Practitioner
DX: I48.92 Unspecified atrial flutter (principal); I10 Essential (primary) hypertension
CPT/HCPCS: 93306

== ENCOUNTER → 2023-01-24 15:45 | Outpatient (BNV) | payer OTHER, SELFPAY | PROVIDERS: PCP Internal Medicine; Visit Provider Internal Medicine Cardiovascular Disease | DX: I48.92 Unspecified atrial flutter (principal) | CPT/HCPCS: 93306 ==

== ENCOUNTER 2023-06-07 13:53 | Outpatient (AMB) | payer MEDICAID, SELFPAY ==
[2023-06-07 14:10] VITALS: BP 140/80; PULSE 73; BMI 32.7
--- NOTE | 2023-06-07 14:10 | A.OFFVIS_ITS ---
Intake Vital Signs 06/07/23 14:10 Height 6 ft 7 in Weight 290 lb 5.655 oz BMI 32.7 BP 140/80 H Blood Pressure Location Lt brachial Position Left Lateral Pulse 73 Pulse Source Monitor Intake Visit Reasons: 6 mth f/up/ KM pt Intake Note: 6 MONTH FOLLOW UP PT FEELS GOOD PT HAS NOT BEEN TAKING MEDS SINCE JANUARY. HAD A WEEK SUPPLY THEN RAN OUT OF TODAY Allergies No Known Allergies [No Known Allergies*] Allergy (Verified 12/28/22 15:29) Medication List - Last Reconciled 06/07/23 by Tayla Lebron NP comp.stocking,thigh,long,large As directed 20-30 mm HG HPI HPI Comments History of Present Illness Details 63-year-old male presents today for a fo llow-up on atrial flutter. He had recently had insurance issues and was without medications. He went about four days without the medications. He reports he has had some fluttering feeling but denies chest pains, shortness of breath, dizziness, or headaches. He has a history of MIGUELITO and does not use his CPAP. [facility] Medical History Low Back Pain Appendicitis Venous stasis Tubular adenoma of colon Asthma COVID-19 virus infection Back pain Fatty liver Hepatitis C Cholelithiasis Peripheral neuropathy Type 2 diabetes mellitus with hyperglycemia Hypercholesterolemia Asthma Obstructive sleep apnea Obesity (BMI 30-39.9) Tubular adenoma of colon Vitamin D deficiency Umbilical hernia Peripheral vascular disease Surgical History History of appendectomy H/O hernia repair H/O colonoscopy H/O wrist surgery Family History (Updated 06/07/23 @ 14:50 by Tayla Lebron NP) Father No problems noted. Mother Cancer Maternal Aunt Colon cancer Sister Substance abuse Son Atrial fibrillation Brother Heart attack Social History Household Members: Spouse Household Members Other:: , sister-in law Housing: House Do you presently have visiting nurse or other home services: No Alcohol intake: never Patient Tobacco Use Status: Former Tobacco user Quit Date: 1980 Tobacco use type: Cigarette Years Smoked: 1980 e-Cigarette/Vaping Use: Never Used Second Hand Smoke Exposure: Yes Substance Use Type: Marijuana service: No Current occupational status: employed Current occupational exposures/hazards: No Cognitive needs: No Hearing needs: No Vision needs: Yes Review of Systems Const Denies weakness ENT Denies dizziness Card Denies chest pain, Denies chest pain with activity, Denies syncope, Denies rapid heart rate, Denies pedal edema, Denies edema, Denies leg edema, Denies lightheadedness, Denies palpitations, Denies dyspnea, Denies dyspnea on exertion and Denies orthopnea Resp Denies cough, Denies dyspnea and Denies dyspnea on exertion GI Denies hematochezia and Denies change in stool character Musc Denies abnormal gait, Denies muscle cramps, Denies muscle weakness, Denies numbness, Denies radiating pain into limb and Denies tingling Neuro Denies abnormal gait, Denies dizziness, Denies syncope, Denies numbness, Denies tingling and Denies weakness Endo Denies palpitations Physical Exam Vital Signs: Last Vital Signs Pulse 73 06/07/23 14:10 BP 140/80 H 06/07/23 14:10 BMI result Body Mass Index 32.7 Const General: healthy appearing and no acute distress Orientation/consciousness: patient oriented x3 HEENT Head: Yes normal to inspection Eyes General: appearance normal, both eyes and all related structures Neck Neck: Yes normal visual inspection Chest Chest palpation & inspection: normal inspection of the chest Resp Effort & Inspection: normal respiratory effort Auscultation: clear to auscultation bilaterally Cardio Jugular venous distension: no JVD Palpation: normal PMI Rate: regular rate Rhythm: other (atrial flutter) Heart sounds: S1 normal heart sound present, S2 normal heart sound present, no click, no gallops, no murmurs and no rubs GI Inspection: Yes normal to inspection Palpation (GI): Soft to palpation Skin General skin exam: no rashes or lesions noted Neuro General: patient oriented x3 Extrem General: Yes normal to inspection Psych Appearance: grossly normal Office Procedures EKG Details: EKG today. Atrial Flutter with variable AV block. Right Bundle Branch Block. Left axis deviation. Rate 73 bpm. [id number], Complete Assessment & Plan Assessment & Plan (1) Atrial flutter: Code(s): I48.92 - Unspecified atrial flutter Plan: Back in atrial flutter on EKG. Sent refills for his medications. On eliquis for anticoagulation and metoprolol tartrate. Will do holter to check for rate and rhythm and pharmacolgoical stress test to assess for ischemia. Patient is not claustrophobic (2) Obstructive sleep apnea: Comment: Patient denies. States has never used his CPAP machine Code(s): G47.33 - Obstructive sleep apnea (adult) (pediatric) Plan: Encouraged CPAP use and to discuss option with Sleep Medicine. Referral Placed. Orders: Orders NM cardiolite stress test 06/07/23 I48.92 - Unspecified atrial flutter ECG 3 day holter monitor 06/07/23 I48.92 - Unspecified atrial flutter CA lexiscan stress w razia 06/07/23 I48.92 - Unspecified atrial flutter Referrals Sleep Medicine Referral G47.33 - Obstructive sleep apnea (adult) (pediatric) Medications: New metoprolol tartrate 25 mg PO BID 180 tabs 3RF 90 days apixaban (Eliquis) 5 mg PO BID 180 tabs 3RF 90 days metoprolol tartrate 12.5 mg (1/2 x 25 mg) PO BID 90 days 90 tabs 3RF Coding Level of Care Code Est Pt Level 3 (98503) Diagnoses Atrial flutter I48.92 Obstructive sleep apnea G47.33 CPT Codes EKG - CPT: 34392-[id number], Complete ([id number])
== END 2023-06-07 14:59 | disposition home or self-care (01) ==
PROVIDERS: PCP Internal Medicine; Visit Provider Nurse Practitioner
DX: I48.92 Unspecified atrial flutter (principal); G47.33 Obstructive sleep apnea (adult) (pediatric)
CPT/HCPCS: 93010; 99213

== ENCOUNTER → 2023-06-07 13:53 | Outpatient (BNVA) | payer MEDICAID, SELFPAY | PROVIDERS: PCP Internal Medicine; Visit Provider Nurse Practitioner | DX: I48.92 Unspecified atrial flutter (principal); G47.33 Obstructive sleep apnea (adult) (pediatric) | CPT/HCPCS: 93005; 99212 ==

== ENCOUNTER → 2023-07-21 09:56 | Outpatient (REF) | payer MEDICAID, SELFPAY ==
--- NOTE | ~2023-07-21 | NM_ITS ---
Lexiscan Myocardial perfusion study Indication: Atrial flutter, assess for ischemia Technique: The patient was brought in for a Lexiscan perfusion study on 07/21/2023 and was injected 0.4 mg of Lexiscan intravenously. Within a minute of this injection 45 mCi of sestamibi was given intravenously. Images were obtained using the SPECT gamma camera interlaced with the gating device. Images were obtained in supine position. Resting perfusion study was performed on 07/26/2023. Patient was administered 45 mCi of sestamibi intravenously at rest. Images were then obtained in supine position. Images were processed with the software and compared side to side in short axis, horizontal long axis and vertical long axis views. Total DLP 118mGy-cm. Findings: Raw acquisition reviewed. The stress perfusion study showed diminished tracer uptake along the inferior wall. There is improvement with CT attenuation correction suggestive of diaphragmatic attenuation artifact. The gated study shows mildly reduced LV systolic function with calculated LVEF of 51%. LV cavity is normal in size. The gated study shows normal wall thickening and contraction of segments. Resting study shows diminished tracer uptake along the inferior wall. There is improvement with CT attenuation correction suggestive of diaphragmatic attenuation artifact. Gating at rest reveals normal wall motion with ejection fraction at 54%. The findings are consistent with fixed inferior perfusion defect. No clear reversible defects. NM/NM cardiolite stress test Impression: 1. Myocardial perfusion imaging study shows no clear evidence of ischemia or infarction. Probably normal myocardial perfusion. 2. Gated LVEF is 51% during stress and 54% during rest. 3. Transient ischemic dilatation not present. EKG component of the test reported separately.
--- NOTE | 2023-07-21 10:47 | CA_ITS ---
Acquisition Time: 2023-07-21 10:10:36 Total Exercise Time: 00:02:00 Test Indications: AFLUTTER Medications: SEE H Protocol: LEXISCAN Max HR: 120 BPM 77% of Pred: 155 BPM Max BP: 168/080 mmHG Max Work Load: 1.0 METS Pharmacological stress test with Lexiscan injection while sitting, without anginal symptoms, with isolated PVCs, with normotensive response to injection, with nondiagnoisitic EKGs. Aminophylline 75mg IVP given to reverse Lexiscan. Nuclear images pending. Test reviewed with Dr. Birmingham. Referred By: Tayla Lebron Overread By: Tayla Lebron
--- NOTE | 2023-07-21 11:06 | HM_ITS ---
* Total monitoring time 3 days. * Underlying rhythm is atrial flutter. * Rare ventricular ectopy. Rare couplets. 2 short runs. Longest 4 beats. Monomorphic. * No significant pauses or AV blocks. * Patient marker used in association with atrial flutter. * Symptoms of rapid/fast heartbeat and numb body in diary correlates with atrial flutter with controlled rate. MTDD
== END ==
LOC: HO.CARD 09:56
PROVIDERS: PCP Internal Medicine; Visit Provider Nurse Practitioner
DX: I48.92 Unspecified atrial flutter (principal)
CPT/HCPCS: 78452; 93017; 93242; A9500; J0280; J2785

== ENCOUNTER → 2023-07-21 10:47 | Outpatient (BNV) | payer MEDICAID, SELFPAY | PROVIDERS: PCP Internal Medicine; Visit Provider Nurse Practitioner | DX: I48.92 Unspecified atrial flutter (principal) | CPT/HCPCS: 78452; 93016; 93018; 93244 ==

== ENCOUNTER 2023-08-02 13:09 | Outpatient (AMB) | payer MEDICAID, SELFPAY ==
[2023-08-02 13:11] VITALS: BP 140/80; PULSE 78; BMI 33.5
--- NOTE | 2023-08-02 13:11 | A.OFFVIS_ITS ---
Vital Signs 08/02/23 13:11 08/02/23 13:39 Height 6 ft 7 in Weight 297 lb 9.985 oz BMI 33.5 BP 140/80 H 132/80 Blood Pressure Location Lt brachial Rt brachial Position Sitting Sitting Pulse 78 Pulse Source Pulse Oximeter Intake Visit Reasons: 2 mth f/up sonya/ home sleep/ holter Allergies No Known Allergies [No Known Allergies*] Allergy (Verified 12/28/22 15:29) HPI Comments Details: 63-year-old male presents today for a follow-up on atrial flutter. He denies chest pains, shortness of breath, dizziness, or headaches. He has a history of MIGUELITO and does not use his CPAP. [facility] Medical History Low Back Pain Appendicitis Venous stasis Tubular adenoma of colon Asthma COVID-19 virus infection Back pain Fatty liver Hepatitis C Cholelithiasis Peripheral neuropathy Type 2 diabetes mellitus with hyperglycemia Hypercholesterolemia Asthma Obstructive sleep apnea Obesity (BMI 30-39.9) Tubular adenoma of colon Vitamin D deficiency Umbilical hernia Peripheral vascular disease Surgical History History of appendectomy H/O hernia repair H/O colonoscopy H/O wrist surgery Family History (Updated 08/08/23 @ 08:37 by Tayla Lebron NP) Father Hx of CABG Mother Cancer Maternal Aunt Colon cancer Sister Substance abuse Hx of CABG Son Atrial fibrillation Brother Heart attack Hx of CABG Social History Household Members: Spouse Household Members Other:: , sister-in law Housing: House Do you presently have visiting nurse or other home services: No Alcohol intake: never Patient Tobacco Use Status: Former Tobacco user Tobacco use type: Cigarette Years Smoked: 1980 e-Cigarette/Vaping Use: Never Used Second Hand Smoke Exposure: Yes Substance Use Type: Marijuana service: No Current occupational status: employed Current occupational exposures/hazards: No Cognitive needs: No Hearing needs: No Vision needs: Yes Review of Systems Const Denies weakness ENT Denies dizziness Card Denies chest pain, Denies chest pain with activity, Denies syncope, Denies rapid heart rate, Denies pedal edema, Denies edema, Denies leg edema, Denies lightheadedness, Denies palpitations, Denies dyspnea, Denies dyspnea on exertion and Denies orthopnea Resp Denies cough, Denies dyspnea and Denies dyspnea on exertion GI Denies hematochezia and Denies change in stool character Musc Denies abnormal gait, Denies muscle cramps, Denies muscle weakness, Denies numbness, Denies radiating pain into limb and Denies tingling Neuro Denies abnormal gait, Denies dizziness, Denies syncope, Denies numbness, Denies tingling and Denies weakness Endo Denies palpitations Physical Exam Vital Signs: Last Vital Signs Pulse 78 08/02/23 13:11 BP 132/80 08/02/23 13:39 BMI result Body Mass Index 33.5 Results Reviewed Results Reviewed: Holter: * Total monitoring time 3 days. * Underlying rhythm is atrial flutter. * Rare ventricular ectopy. Rare couplets. 2 short runs. Longest 4 beats. Monomorphic. * No significant pauses or AV blocks. * Patient marker used in association with atrial flutter. * Symptoms of rapid/fast heartbeat and numb body in diary correlates with atrial flutter with controlled rate. NM/NM cardiolite stress test Impression: 1. Myocardial perfusion imaging study shows no clear evidence of ischemia or infarction. Probably normal myocardial perfusion. 2. Gated LVEF is 51% during stress and 54% during rest. 3. Transient ischemic dilatation not present. Assessment & Plan Assessment & Plan (1) Atrial flutter: Code(s): I48.92 - Unspecified atrial flutter Category: Medical Plan Symptoms about 1x per week. 100% Atrial Flutter. Will discuss with Dr. Birmingham regarding plan of care. Continue avoiding stimulants. Medications: Changed From metoprolol tartrate 25 mg PO BID 90 days 180 tabs 3RF To metoprolol tartrate 50 mg PO BID 90 days 180 tabs 3RF Coding Level of Care Code Est Pt Level 3 (36664) Diagnoses Atrial flutter I48.92
[2023-08-02 13:39] VITALS: BP 132/80
== END 2023-08-02 13:45 | disposition home or self-care (01) ==
PROVIDERS: PCP Internal Medicine; Visit Provider Nurse Practitioner
DX: I48.92 Unspecified atrial flutter (principal)
CPT/HCPCS: 99213

== ENCOUNTER → 2023-08-02 13:09 | Outpatient (BNVA) | payer MEDICAID, SELFPAY | PROVIDERS: PCP Internal Medicine; Visit Provider Nurse Practitioner | DX: I48.92 Unspecified atrial flutter (principal); Z79.899 Other long term (current) drug therapy | CPT/HCPCS: 99212 ==

== ENCOUNTER 2023-08-17 07:47 | Day surgery (SDC) | payer MEDICAID, SELFPAY ==
--- NOTE | 2023-08-16 10:12 | HO.ANESPROP2 ---
Documented by User: Alexandra Kent NP 08/16/23 10:14 HPI - Anesthesia Eval Consult details Narrative: 63yo M for Cardioversion Eliquis for afib PMFSH Active Problems Active Problems: All Active Problems Low Back Pain (Acute) S/P laparoscopic appendectomy (Acute) Atrial flutter (Acute) Atrial flutter (Acute) Palpitation (Acute) Fatty liver (Acute) Cholelithiasis (Acute) HTN (hypertension) (Acute) Umbilical hernia (Acute) Ventral hernia (Acute) Diarrhea (Acute) Erectile dysfunction (Acute) Peripheral vascular disease (Acute) Annual physical exam (Acute) Constipation (Acute) Lumbar degenerative disc disease (Acute) Verruca (Acute) COVID-19 virus infection (Acute) Tubular adenoma of colon (Acute) Type 2 diabetes mellitus with hyperglycemia (Acute) Hypercholesterolemia (Acute) Asthma (Acute) Obstructive sleep apnea (Acute) Obesity (BMI 30-39.9) (Acute) Past Medical History Medical History Appendicitis Venous stasis Tubular adenoma of colon COVID-19 virus infection Low Back Pain Back pain Fatty liver Hepatitis C Cholelithiasis Peripheral neuropathy Type 2 diabetes mellitus with hyperglycemia Hypercholesterolemia Asthma Obstructive sleep apnea Obesity (BMI 30-39.9) Tubular adenoma of colon Vitamin D deficiency Umbilical hernia Peripheral vascular disease Family History Family History Father Hx of CABG Mother Cancer Maternal Aunt Colon cancer Sister Substance abuse Hx of CABG Son Atrial fibrillation Brother Heart attack Hx of CABG Family history of problems with anesthesia: No Surgical History Surgical History History of appendectomy H/O hernia repair H/O colonoscopy H/O wrist surgery History of Problems with Anesthesia: No Social History Social History Household Members: Spouse Household Members Other:: , sister-in law Housing: House Do you presently have visiting nurse or other home services: No Alcohol intake: never Patient Tobacco Use Status: Former Tobacco user Tobacco use type: Cigarette Years Smoked: 1980 e-Cigarette/Vaping Use: Never Used Second Hand Smoke Exposure: Yes Use of substances other than those prescribed or required for medical reasons: Yes Substance Use Type: Marijuana Substance Use Type Other:: smoked-last on 08/15 Substance Use Frequency: Daily Are you DNR?: No Advance Directives: No Advance Directives Information Provided: Yes service: No Current occupational status: employed Current occupational exposures/hazards: No Cognitive needs: No Hearing needs: No Vision needs: Yes Meds Allergies Allergy/AdvReac Type Severity Reaction Status Date / Time No Known Allergies Allergy Verified 08/17/23 08:22 [No Known Allergies*] Home Medications ?Medication ?Instructions ?Recorded ?Confirmed ?Last Taken ?Type albuterol sulfate 90 mcg/actuation 2 inh inhalation Q4-6H PRN 08/17/23 08/17/23 Unknown History breath activated powder inhaler Shortness Of Breath Or Wheezing Exam Narrative Narrative: Holter 06/2023 Total monitoring time 3 days. Underlying rhythm is atrial flutter. Rare ventricular ectopy. Rare couplets. 2 short runs. Longest 4 beats. Monomorphic. No significant pauses or AV blocks. Patient marker used in association with atrial flutter. Symptoms of rapid/fast heartbeat and numb body in diary correlates with atrial flutter with controlled rate. NM cardiolite stress test 06/2023 Impression: 1. Myocardial perfusion imaging study shows no clear evidence of ischemia or infarction. Probably normal myocardial perfusion. 2. Gated LVEF is 51% during stress and 54% during rest. 3. Transient ischemic dilatation not present. EKG component of the test reported separately. ECHO 12/2022 Conclusions: - 1. Mildly dilated left ventricle with mild LVH with low normal LV ejection fraction 50-55% 2. Cardiac valves not well visualized with cardiac valvular Dopplers within normal limits 3. Normal measured RV systolic pressure 4. Upper limits of normal ascending aortic size 5. No gross pericardial effusion Assessment and Plan Assessment Anesthesia Assessment: Chart Reviewed Final Anesthetic Review Family History of Problems with Anesthesia: No History of Problems with Anesthesia: No Documented by User: Nani Street MD 08/17/23 09:25 [facility] Past Medical History Medical History Appendicitis Venous stasis Tubular adenoma of colon COVID-19 virus infection Low Back Pain Back pain Fatty liver Hepatitis C Cholelithiasis Peripheral neuropathy Type 2 diabetes mellitus with hyperglycemia Hypercholesterolemia Asthma Obstructive sleep apnea Obesity (BMI 30-39.9) Tubular adenoma of colon Vitamin D deficiency Umbilical hernia Peripheral vascular disease Family History Family History Father Hx of CABG Mother Cancer Maternal Aunt Colon cancer Sister Substance abuse Hx of CABG Son Atrial fibrillation Brother Heart attack Hx of CABG Surgical History Surgical History History of appendectomy H/O hernia repair H/O colonoscopy H/O wrist surgery Social History Social History Household Members: Spouse Household Members Other:: , sister-in law Housing: House Do you presently have visiting nurse or other home services: No Alcohol intake: never Patient Tobacco Use Status: Former Tobacco user Tobacco use type: Cigarette Years Smoked: 1980 e-Cigarette/Vaping Use: Never Used Second Hand Smoke Exposure: Yes Use of substances other than those prescribed or required for medical reasons: Yes Substance Use Type: Marijuana Substance Use Type Other:: smoked-last on 08/15 Substance Use Frequency: Daily Are you DNR?: No Advance Directives: No Advance Directives Information Provided: Yes service: No Current occupational status: employed Current occupational exposures/hazards: No Cognitive needs: No Hearing needs: No Vision needs: Yes Meds Allergies Allergy/AdvReac Type Severity Reaction Status Date / Time No Known Allergies Allergy Verified 08/17/23 08:22 [No Known Allergies*] Home Medications ?Medication ?Instructions ?Recorded ?Confirmed ?Last Taken ?Type albuterol sulfate 90 mcg/actuation 2 inh inhalation Q4-6H PRN 08/17/23 08/17/23 Unknown History breath activated powder inhaler Shortness Of Breath Or Wheezing Exam Airway Mallampati Class: III TM Dist: <=3cm Neck ROM: Limited Heart: afib Lungs: cta Assessment and Plan Assessment Anesthesia Assessment: Anesthesia Plan Discussed Final Anesthetic Review ASA Class: III and Emergency Final Preanesthetic Review: No Changes in Pt Med Stat, Meds/Allgs Chart Reviewed, Consent Obtained/Reviewed and Anes Risks/Benef Reviewed Patient Risk: Intermediate Procedure Risk: Low Anesthetic Plan Anesthetic Plan: MAC: Disposition: Standard PACU
[2023-08-17] VITALS (7 sets, daily range): BP systolic 115–136; BP diastolic 82–95; PULSE 61–77; RESP 16–20; TEMP 36.3–37; O2SAT 94–97; BMI 33.9
--- NOTE | 2023-08-17 | ECG_ITS ---
Test Reason : stat Blood Pressure : / mmHG Vent. Rate : 062 BPM Atrial Rate : 062 BPM P-R Int : 212 ms QRS Dur : 108 ms QT Int : 426 ms P-R-T Axes : 066 046 057 degrees QTc Int : 432 ms Sinus rhythm with 1st degree A-V block Otherwise normal ECG When compared with ECG of 24-OCT-2022 16:03, Sinus rhythm has replaced Atrial flutter Vent. rate has decreased BY 41 BPM Borderline criteria for Inferior infarct are no longer Present ST no longer depressed in Inferior leads Nonspecific T wave abnormality no longer evident in Inferior leads Referred By: Luciano Birmingham Electronically Signed By:Luciano Birmingham
[2023-08-17] MEDS: Lactated Ringers 1,000 ML 100 ML IVCONT (08:50)
--- NOTE | 2023-08-17 09:49 | MHC.SHP ---
Pre-Procedural Eval Section A - 24 Hr Update-Section A only Date of Service: 08/17/23 The patient is an INPATIENT: No The patient has been examined within 24 hours of the surgical procedure. The History & Physical has been completed within 30 days and I have reviewed it.: Yes Section B - Complete if H&P > 30 days Chief Complaint: Unspecified atrial flutter Details of Present Illness: for cardioversion Allergies: Allergies Allergy/AdvReac Type Severity Reaction Status Date / Time No Known Allergies Allergy Verified 08/17/23 08:22 [No Known Allergies*] Plan Diagnosis/Plan: Unchanged I have reviewed the history and physical and performed a pertinent physical examination on my patient. No changes have occurred unless specified. Time Spent With Patient Time: Total time managing care of this patient today ____ minutes.
--- NOTE | 2023-08-17 09:50 | P.PNCAR_ITS ---
Cardioversion Procedure Note Cardioversion Date of Procedure: 08/17/23 Ordering Provider: Tayla Lebron NP Performing Provider: Luciano Birmingham Indication for Procedure: Atrial flutter, SOB Performed with Transesophageal Echo: No Consent: Verbal and Written consent was obtained from the patient before starting. The patient was made aware of the risk of stroke, skin burn and arrhythmia. Procedure: After consent obtained, defib pads were attached and the patient was sedated by the anesthesia team. Once adequate sedation achieved, we gave 150 J synchronized shock but the patient continued to be in atrial flutter. After this we gave a 20 0 J synch shock which converted the rhythm to sinus. Complications: No acute complications Recommendations: c/w eliquis. c/w metoprolol. Adding Multaq- no CHF history.
[2023-08-17] MEDS: Apixaban 5 MG TABLET PO (10:20)
== END 2023-08-17 10:50 | disposition home or self-care (01) ==
PROVIDERS: PCP Internal Medicine; Visit Provider Internal Medicine Cardiovascular Disease
PROC: 5A2204Z Restoration of Cardiac Rhythm, Single (ICD-10-PCS; principal; 2023-08-17 09:30)
DX: I48.92 Unspecified atrial flutter (principal); R06.02 Shortness of breath; Z79.01 Long term (current) use of anticoagulants
CPT/HCPCS: 92960; 93005; J2704

== ENCOUNTER → 2023-08-17 07:47 | Outpatient (BNV) | payer MEDICAID, SELFPAY | PROVIDERS: PCP Internal Medicine; Visit Provider Internal Medicine Cardiovascular Disease | DX: I44.0 Atrioventricular block, first degree (principal); I48.92 Unspecified atrial flutter | CPT/HCPCS: 92960; 93010 ==

== ENCOUNTER → 2023-08-26 14:46 | Outpatient (BNVA) | payer MEDICAID, SELFPAY | PROVIDERS: PCP Internal Medicine; Visit Provider Nurse Practitioner | DX: R00.1 Bradycardia, unspecified (principal); I45.19 Other right bundle-branch block; Z79.899 Other long term (current) drug therapy | CPT/HCPCS: 93005 ==

== ENCOUNTER 2023-09-20 12:59 | Outpatient (AMB) | payer MEDICAID, SELFPAY ==
--- NOTE | 2023-09-20 12:59 | MHC.PC.OV ---
Intake Visit Reasons: ? Pneumonia Allergies No Known Allergies [No Known Allergies*] Allergy (Verified 09/20/23 13:00) Medication List - Last Reconciled 09/20/23 by Shannon Jones MD albuterol sulfate 90 mcg/actuation 2 inhalations inhalation Q4-6H PRN apixaban (Eliquis) 5 mg PO BID 90 days comp.stocking,thigh,long,large As directed 20-30 mm HG doxycycline hyclate 100 mg PO BID dronedarone 400 mg PO BID metoprolol tartrate 25 mg PO BID 90 days Tobacco use date assessed: 09/20/23 Fall risk assessment: No Falls in past year Last assessed Fall Risk: 09/20/23 Dental Screening Dental Screen Date: 09/20/23 Did you have a dental visit in the last 12 months?: Yes Did you have a dental problem in the last 6 months where you did not have access to dental care?: No Was dental information given to patient?: Patient has dentist HPI ? Pneumonia HPI Details 63-year-old obese male with diabetes hypercholesterolemia hypertension atrial flutter obstructive sleep apnea but can not tolerate CPAP calling in through Telehealth. Last seen in November last year patient is up-to-date with colon test. 08/17/2022. Review of the notes patient had cardioversion done in [id number]. Stress test done in June 2023 showing nuclear evidence of ischemia EF 51% echocardiogram December 2022Mildly dilated left ventricle with mild LVH with low normal LV ejection fraction 50-55% 2. Cardiac valves not well visualized with cardiac valvular Dopplers within normal limits 3. Normal measured RV systolic pressure 4. Upper limits of normal ascending aortic size 5. No gross pericardial effusion Left message on the phone 13:45 [id number] congested and cough 1 week, no fevers, , diarrhea, PFSH Medical History (Updated 09/20/23 @ 13:49 by Shannon Jones MD) Verruca Palpitation Atrial flutter Appendicitis Venous stasis Tubular adenoma of colon COVID-19 virus infection Low Back Pain Back pain Fatty liver Hepatitis C Cholelithiasis Peripheral neuropathy Type 2 diabetes mellitus with hyperglycemia Hypercholesterolemia Asthma Obstructive sleep apnea Obesity (BMI 30-39.9) Tubular adenoma of colon Vitamin D deficiency Umbilical hernia Peripheral vascular disease Surgical History History of appendectomy H/O hernia repair H/O colonoscopy H/O wrist surgery Family History Father Hx of CABG Mother Cancer Maternal Aunt Colon cancer Sister Substance abuse Hx of CABG Son Atrial fibrillation Brother Heart attack Hx of CABG Social History Household Members: Spouse Household Members Other:: , sister-in law Housing: House Do you presently have visiting nurse or other home services: No Alcohol intake: never Patient Tobacco Use Status: Former Tobacco user Tobacco use type: Cigarette Years Smoked: 1980 e-Cigarette/Vaping Use: Never Used Second Hand Smoke Exposure: Yes Substance Use Type: Marijuana service: No Current occupational status: employed Current occupational exposures/hazards: No Cognitive needs: No Hearing needs: No Vision needs: Yes Questionnaire PHQ-9 Over the last 2 weeks, how often have you been bothered by any of the following problems? 1. Little interest or pleasure in doing things: not at all 2. Feeling down, depressed, or hopeless: not at all 3. Trouble falling or staying asleep, or sleeping too much: not at all 4. Feeling tired or having little energy: not at all 5. Poor appetite or overeating: not at all 6. Feeling bad about yourself - or that you are a failure or have let yourself or your family down: not at all 7. Trouble concentrating on things, such as reading the newspaper or watching television: not at all 8. Moving or speaking so slowly that other people could have noticed. Or the opposite - being so fidgety or restless that you have been moving around a lot more than usual: not at all 9. Thoughts that you would be better off or of hurting yourself in some way: not at all Total score: 0 Depression Screening Interpretation: Negative Depression Screening Done: Yes Source: Developed by Drs. Cl Sheldon, Ann Gonzalez, Lazaro Barbosa and colleagues, with an educational navdeep from [employer]. Thrive Questionnaire Date Thrive assessed: 09/20/23 I am a: Patient What is your living situation today?: I have a steady place to live Within the past 12 months, did the food you bought not last and you didn't have the money to get more?: Never true Within the past 12 months, did you worry whether your food would run out before you got money to buy more?: Never true Do you have trouble paying for medicines?: No Do you have trouble getting transportation to medical appointments?: No Do you have trouble paying your heating and electricity bill?: No Do you have trouble taking care of your child, family member or friend?: No Do you have trouble with day-to-day activities such as bathing, preparing meals, shopping, managing finances, etc.?: No Are you currently unemployed and looking for a job?: No Are you interested in more education?: No Currently or been in a relationship where the following occur: No concerns reported THRIVE Score: 0 AUDIT C Alcohol Use Questionnaire (AUDIT-C) 1. How often do you have a drink containing alcohol?: Monthly or less 2. How many drinks containing alcohol do you have on a typical day when you are drinking?: 1 or 2 3. How often do you have six or more drinks on one occasion?: Never Total Score: 1 Score Reviewed/Action Taken: No JUAN-7 AMB Questionnaire JUAN-7 Date JUAN - 7 assessed: 09/20/23 Feeling nervous, anxious, or on edge: 0 = Not at all Not being able to stop or control worryin = Not at all Worrying too much about different things: 0 = Not at all Trouble relaxin = Not at all Being so restless that it is hard to sit still: 0 = Not at all Becoming easily annoyed or irritable: 0 = Not at all Feeling afraid as if something awful might happen: 0 = Not at all Total JUAN-7 score (0-4 normal; 5-9 mild; 10-14 moderate; 15-21 severe): 0 Source: Developed by Drs. Cl Sheldon, Ann Gonzalez, Lazaro Barbosa and colleagues, with an educational navdeep from [employer]. Physical exam (Primary Care) Tobacco/Smoking Status: Tobacco use Status Tobacco use date assessed 09/20/23 09/20/23 13:01 Patient Tobacco Use Status Former Tobacco user 09/20/23 13:01 Tobacco use type Cigarette 09/20/23 13:01 e-Cigarette/Vaping Use Never Used 09/20/23 13:01 PHQ-9: PHQ-9 Score PHQ-9: Total score 0 09/20/23 13:01 Depression Screening Interpretation: Negative Thrive Assessment: Date of Thrive Assessment Date Thrive assessed 09/20/23 09/20/23 13:01 Currently or been in a relationship where the following occur: No concerns reported Telehealth Telehealth Telehealth Platform: Telephone Location of provider rendering services: practice address Location of patient: address on file Patient Identification confirmed using: Name, : Yes Telehealth method: voice only Patient verbally consented to treatment: Yes Patient verbally consented to billing insurance company: Yes Patient informed of any privacy concerns related to visit: Yes Minutes spent on Phone/Video with Pt.: 25 Assessment and Plan Assessment & Plan (1) Atrial flutter: Comment: Cardioversion 08/18/2023 Code(s): I48.92 - Unspecified atrial flutter Plan: Patient just had cardioversion done 08/18/2023 (2) HTN (hypertension): Code(s): I10 - Essential (primary) hypertension Qualifiers: Hypertension type: essential hypertension Qualified Code(s): I10 - Essential (primary) hypertension Plan: Continue with blood pressure medication. Decrease salt intake and exercise on metoprolol 25 mg twice a day (3) Type 2 diabetes mellitus with hyperglycemia: Comment: [facility]--pt denies diabetes. Code(s): E11.65 - Type 2 diabetes mellitus with hyperglycemia Qualifiers: Diabetes mellitus terminal gauger supervisor insulin use: without terminal gauger supervisor use Qualified Code(s): E11.65 - Type 2 diabetes mellitus with hyperglycemia Plan: Decrease the amount of carbohydrate intake, pasta, bread, rice and potatoes are all sugar and that is aside from all the sweet stuff, remember that fruits are good but they are Sweet also. Diet controlled at some point will have to get blood work again (4) Hypercholesterolemia: Comment: no medications Code(s): E78.00 - Pure hypercholesterolemia, unspecified Plan: Avoid fried foods, chicken skin, eggs, butter margarine, pastries and meat. Be it pork or beef they have a lot of cholesterol LDL goal of less than 100 and triglyceride of less than 150 08/17/2022 last blood work (5) Asthma: Code(s): J45.909 - Unspecified asthma, uncomplicated Qualifiers: Asthma severity: mild Asthma persistence: intermittent Asthma complication type: uncomplicated Qualified Code(s): J45.20 - Mild intermittent asthma, uncomplicated Plan: Patient has the inhaler albuterol as needed (6) Obstructive sleep apnea: Comment: Patient denies. States has never used his CPAP machine Code(s): G47.33 - Obstructive sleep apnea (adult) (pediatric) Plan: Discussed importance of sleep apnea treatment (7) Obesity (BMI 30-39.9): Code(s): E66.9 - Obesity, unspecified Plan: Diet and exercise (8) Cough: Code(s): R05.9 - Cough, unspecified Qualifiers: Cough type: acute Qualified Code(s): R05.1 - Acute cough Plan: Presently will treat as an infection/bronchitis. X-ray of the chest declined. Orders: Orders Complete Blood Count Auto Diff Today E11.65 - Type 2 diabetes mellitus with hyperglycemia Comprehensive Met. Panel Today E11.65 - Type 2 diabetes mellitus with hyperglycemia Creatinine Urine Today E11.65 - Type 2 diabetes mellitus with hyperglycemia Prostate Specific Antigen Scr Today E11.65 - Type 2 diabetes mellitus with hyperglycemia Free T4 (Free Thyroxine) Today E11.65 - Type 2 diabetes mellitus with hyperglycemia Thyroid Stimulating Hormone Today E11.65 - Type 2 diabetes mellitus with hyperglycemia Lipid Panel Today E11.65 - Type 2 diabetes mellitus with hyperglycemia, E78.00 - Pure hypercholesterolemia, unspecified Microalbumin, Random (w Creat) Today E11.65 - Type 2 diabetes mellitus with hyperglycemia Vitamin B12 and Folate Today E11.65 - Type 2 diabetes mellitus with hyperglycemia Hemoglobin A1c Today E11.65 - Type 2 diabetes mellitus with hyperglycemia Medications: New doxycycline hyclate 100 mg PO BID 14 caps 0RF R05.1 - Acute cough Coding Level of Care Code Tele Est Pt Level 4 (95115) Diagnoses Atrial flutter I48.92 Essential hypertension I10 Hypertension type: essential hypertension Type 2 diabetes mellitus with hyperglycemia, without long-term current use of insulin E11.65 Diabetes mellitus shelter insulin use: without terminal gauger supervisor use Hypercholesterolemia E78.00 Mild intermittent asthma without complication J45.20 Asthma severity: mild Asthma persistence: intermittent Asthma complication type: uncomplicated Obstructive sleep apnea G47.33 Obesity (BMI 30-39.9) E66.9 Acute cough R05.1 Cough type: acute Additional Codes PHQ-9 - 27575 - PHQ-9 Billing: ([id number])
== END 2023-09-20 14:10 | disposition home or self-care (01) ==
LOC: HO.HMGH 12:59
PROVIDERS: PCP Internal Medicine; Visit Provider Internal Medicine
DX: I48.92 Unspecified atrial flutter (principal); E11.65 Type 2 diabetes mellitus with hyperglycemia; I10 Essential (primary) hypertension; E78.00 Pure hypercholesterolemia, unspecified; J45.20 Mild intermittent asthma, uncomplicated; G47.33 Obstructive sleep apnea (adult) (pediatric); E66.9 Obesity, unspecified; R05.1 Acute cough
CPT/HCPCS: 99214

== ENCOUNTER 2023-09-21 14:45 | Outpatient (AMB) | payer MEDICAID, SELFPAY ==
--- NOTE | 2023-09-21 14:58 | MHC.OFFVIS ---
Vital Signs 09/21/23 14:59 Height 6 ft 7 in Weight 293 lb 3.437 oz BMI 33.0 BP 122/72 Blood Pressure Location Lt brachial Position Sitting Pulse 59 Pulse Source Monitor Intake Visit Reasons: CARDIOVERSION BOOKED F/U SOONER Allergies No Known Allergies [No Known Allergies*] Allergy (Verified 09/20/23 13:00) HPI Comments Details: 63-year-old male presents today for a follow-up after cardioversion. He reports he has not felt any episodes of atrial flutter since then. He is currently ill with a URI. He was cardioverted 08/[address] [place] successfully. [facility] Medical History Verruca Palpitation Atrial flutter Appendicitis Venous stasis Tubular adenoma of colon COVID-19 virus infection Low Back Pain Back pain Fatty liver Hepatitis C Cholelithiasis Peripheral neuropathy Type 2 diabetes mellitus with hyperglycemia Hypercholesterolemia Asthma Obstructive sleep apnea Obesity (BMI 30-39.9) Tubular adenoma of colon Vitamin D deficiency Umbilical hernia Peripheral vascular disease Surgical History History of appendectomy H/O hernia repair H/O colonoscopy H/O wrist surgery Family History Father Hx of CABG Mother Cancer Maternal Aunt Colon cancer Sister Substance abuse Hx of CABG Son Atrial fibrillation Brother Heart attack Hx of CABG Social History Household Members: Spouse Household Members Other:: , sister-in law Housing: House Do you presently have visiting nurse or other home services: No Alcohol intake: never Patient Tobacco Use Status: Former Tobacco user Tobacco use type: Cigarette Years Smoked: 1980 e-Cigarette/Vaping Use: Never Used Second Hand Smoke Exposure: Yes Substance Use Type: Marijuana service: No Current occupational status: employed Current occupational exposures/hazards: No Cognitive needs: No Hearing needs: No Vision needs: Yes Review of Systems Const Denies weakness ENT Denies dizziness Card Denies chest pain, Denies chest pain with activity, Denies syncope, Denies rapid heart rate, Denies pedal edema, Denies edema, Denies leg edema, Denies lightheadedness, Denies palpitations, Denies dyspnea, Denies dyspnea on exertion and Denies orthopnea Resp Denies cough, Denies dyspnea and Denies dyspnea on exertion GI Denies hematochezia and Denies change in stool character Musc Denies abnormal gait, Denies muscle cramps, Denies muscle weakness, Denies numbness, Denies radiating pain into limb and Denies tingling Neuro Denies abnormal gait, Denies dizziness, Denies syncope, Denies numbness, Denies tingling and Denies weakness Endo Denies palpitations Physical Exam Vital Signs: Last Vital Signs Pulse 59 09/21/23 14:59 BP 122/72 09/21/23 14:59 BMI result Body Mass Index 33.0 Const General: healthy appearing and no acute distress Orientation/consciousness: patient oriented x3 HEENT Head: Yes normal to inspection Eyes General: appearance normal, both eyes and all related structures Neck Neck: Yes normal visual inspection Chest Chest palpation & inspection: normal inspection of the chest Resp Effort & Inspection: normal respiratory effort Auscultation: clear to auscultation bilaterally Cardio Jugular venous distension: no JVD Palpation: normal PMI Rate: regular rate Rhythm: regular rhythm Heart sounds: S1 normal heart sound present, S2 normal heart sound present, no click, no gallops, no murmurs and no rubs GI Inspection: Yes normal to inspection Palpation (GI): Soft to palpation Skin General skin exam: no rashes or lesions noted Neuro General: patient oriented x3 Extrem General: Yes normal to inspection Psych Appearance: grossly normal Office Procedures EKG Details: EKG today. Sinus Bradycardia. Incomplete Right Bundle Brach Block. Rate 59 bpm. MS 188ms. QRS 108ms. QTc 421ms. [id number], Complete Assessment & Plan Assessment & Plan (1) Atrial flutter: Comment: Cardioversion 08/17/2023 Code(s): I48.92 - Unspecified atrial flutter Category: Medical Plan Patient successfully cardioverted to sinus rhythm on 08/17/[address] [place]. In Sinus Bradycardia on EKG and by ascultation. He is avoiding stimulants. Will do holter to assess rhythm and rate. Orders: Orders ECG 3 day holter monitor 09/21/23 I48.92 - Unspecified atrial flutter Coding Level of Care Code Est Pt Level 3 (75867) Diagnoses Atrial flutter I48.92 CPT Codes EKG - CPT: 42781-[id number], Complete ([id number])
[2023-09-21 14:59] VITALS: BP 122/72; PULSE 59; BMI 33.0
== END 2023-09-21 15:22 | disposition home or self-care (01) ==
PROVIDERS: PCP Internal Medicine; Visit Provider Nurse Practitioner
DX: I48.92 Unspecified atrial flutter (principal)
CPT/HCPCS: 93010; 99213

== ENCOUNTER → 2023-09-21 14:45 | Outpatient (BNVA) | payer MEDICAID, SELFPAY | PROVIDERS: PCP Internal Medicine; Visit Provider Nurse Practitioner | DX: I48.92 Unspecified atrial flutter (principal); I45.10 Unspecified right bundle-branch block | CPT/HCPCS: 93005; 99212 ==

== ENCOUNTER → 2023-10-26 14:57 | Outpatient (REF) | payer MEDICAID, SELFPAY ==
--- NOTE | 2023-10-26 15:00 | HM_ITS ---
Conclusion: 1. Patient was monitored for total period of 2 days 2. Baseline was normal sinus rhythm with average heart rate of 61 beats per minute 3. Frequent sinus bradycardia noted with 51% of time heart rate below 60 beats per minute with no significant pauses 4. Occasional PVCs noted 5. No patient reported events MTDD
== END ==
LOC: HO.CARD 14:57
PROVIDERS: PCP Internal Medicine; Visit Provider Nurse Practitioner
DX: I48.92 Unspecified atrial flutter (principal)
CPT/HCPCS: 93242

== ENCOUNTER → 2023-10-26 15:00 | Outpatient (BNV) | payer MEDICAID, SELFPAY | PROVIDERS: PCP Internal Medicine; Visit Provider Internal Medicine Cardiovascular Disease | DX: I49.3 Ventricular premature depolarization (principal) | CPT/HCPCS: 93227 ==

== ENCOUNTER 2024-02-13 14:51 | Outpatient (AMB) | payer MEDICAID, SELFPAY ==
[2024-02-13 15:35] VITALS: BP 146/82; PULSE 65; O2SAT 95; BMI 34.4
--- NOTE | 2024-02-13 15:35 | MHC.PC.OV ---
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 Required: No Accompanied by: Self / Same As Patient Allergies No Known Allergies [No Known Allergies*] Allergy (Verified 02/13/24 15:39) Medication List - Last Reconciled 02/13/24 by Shannon Jones MD apixaban (Eliquis) 5 mg PO BID 90 days comp.stocking,thigh,long,large As directed 20-30 mm HG dronedarone 400 mg PO BID metoprolol tartrate 25 mg PO BID 90 days Tobacco use date assessed: 09/20/23 Fall risk assessment: No Falls in past year Last assessed Fall Risk: 02/13/24 Dental Screening Dental Screen Date: 02/13/24 Did you have a dental visit in the last 12 months?: Yes Did you have a dental problem in the last 6 months where you did not have access to dental care?: No Was dental information given to patient?: Patient has dentist HPI Annual Exam HPI Details patient has been taking once a day of the med and long discussion that it does not work that sway - complains had rectal bleed and so stopped and decreased med.The patient is a 64-year-old male presenting with hypertension and atrial fibrillation. The hypertension was noted to be elevated today, with a blood pressure reading of 150/80 mmHg. The patient has not been monitoring his blood pressure outside of the clinical setting. He underwent cardioversion in July, and a subsequent Holter monitor showed normal heart rhythm maintenance. The patient reports not adhering fully to his anticoagulation regimen, citing rectal bleeding as a consequence, which led him to reduce the medication dosage. He has experienced fluctuations in weight, with a current weight of 305 pounds, having been as low as 283 pounds in the past months. No new blood work has been performed since the last visit. He denies any known medication allergies and reports incomplete adherence to his prescribed regimen of metoprolol and apixaban. He attributes rectal bleeding to anticoagulation therapy. The patient denies constipation but is concerned about bleeding from the gastrointestinal tract. He limits alcohol intake and reports recent weight fluctuations. - Blood work requested and pending to monitor anticoagulation and overall health. - Scheduled follow-up with an surgical training specialist for regular vision checks. - Advised on the importance of maintaining anticoagulation for stroke prevention. - Recommendation to monitor sugar intake, particularly in drinks like lemonade. - Occasional alcohol consumption, usually two cans of alcoholic beverages, once per month. - Regular cannabis use, smoked daily. - Non-smoker in terms of tobacco but uses cannabis. - Engages in boating activities every other weekend. - Cardiovascular: Denies chest pain, palpitations, dizziness. - Gastrointestinal: Denies constipation but reports rectal bleeding; denies nausea, vomiting. - Neurological: Denies passing out, dizziness, headaches. - Genitourinary: Reports nocturia, urinating 3-4 times at night. - Pulmonary: Denies dyspnea, cough. - Holter Monitor: Showed maintenance of normal sinus rhythm post-cardioversion. [facility] Medical History Verruca Palpitation Atrial flutter Appendicitis Venous stasis Tubular adenoma of colon COVID-19 virus infection Low Back Pain Back pain Fatty liver Hepatitis C Cholelithiasis Peripheral neuropathy Type 2 diabetes mellitus with hyperglycemia Hypercholesterolemia Asthma Obstructive sleep apnea Obesity (BMI 30-39.9) Tubular adenoma of colon Vitamin D deficiency Umbilical hernia Peripheral vascular disease Surgical History History of appendectomy H/O hernia repair H/O colonoscopy H/O wrist surgery Family History Father Hx of CABG Mother Cancer Maternal Aunt Colon cancer Sister Substance abuse Hx of CABG Son Atrial fibrillation Brother Heart attack Hx of CABG Social History (Updated 02/13/24 @ 15:58 by Shannon Jones MD) Household Members: Spouse Household Members Other:: , sister-in law Housing: House Do you presently have visiting nurse or other home services: No Comment: QO weekend 2 drinks Patient Tobacco Use Status: Former Tobacco user Tobacco use type: Cigarette Years Smoked: 1980 smoke marijuana e-Cigarette/Vaping Use: Never Used Second Hand Smoke Exposure: Yes Substance Use Type: Marijuana service: No Current occupational status: employed Current occupational exposures/hazards: No Cognitive needs: No Hearing needs: No Vision needs: Yes Questionnaire PHQ-9 Over the last 2 weeks, how often have you been bothered by any of the following problems? 1. Little interest or pleasure in doing things: not at all Source: Developed by Drs. Cl Sheldon, Ann Gonzalez, Lazaro Barbosa and colleagues, with an educational navdeep from [employer]. Thrive Questionnaire Date Thrive assessed: 09/20/23 JUAN-7 AMB Questionnaire JUAN-7 Date JUAN - 7 assessed: 09/20/23 Source: Developed by Drs. Cl Sheldon, Ann Gonzalez, Lazaro Barbosa and colleagues, with an educational navdeep from [employer]. Review of Systems Const Denies poor appetite and Denies weakness Eyes Denies no additional complaints ENT Reports Normal hearing present, Denies dizziness, Denies nasal congestion, Denies tinnitus and Denies sore throat Card Denies chest pain, Denies syncope, Denies rapid heart rate and Denies dyspnea Resp Denies cough and Denies dyspnea GI Denies change in stool character, Reports constipation, Denies diarrhea, Denies nausea and Denies vomiting Denies dysuria and Denies urinary frequency Neuro Reports Normal hearing present, Denies confusion, Denies dizziness, Denies syncope and Denies weakness Psych Denies confusion Physical exam (Primary Care) Vital Signs: Last Vital Signs Pulse 65 02/13/24 15:35 BP 146/82 H 02/13/24 15:35 Pulse Ox 95 02/13/24 15:35 Oxygen Delivery Method Room Air 02/13/24 15:35 BMI result Body Mass Index 34.4 Tobacco/Smoking Status: Tobacco use Status Tobacco use date assessed 09/20/23 02/13/24 15:40 Patient Tobacco Use Status Former Tobacco user 02/13/24 15:58 Tobacco use type Cigarette 02/13/24 15:58 e-Cigarette/Vaping Use Never Used 02/13/24 15:58 Thrive Assessment: Date of Thrive Assessment Date Thrive assessed 09/20/23 02/13/24 15:40 Const General: No confusion Orientation/consciousness: No confusion HENMT Other: impacted cerumen R ear, TM intact L ear Head: Yes normocephalic Ears: external ears normal Face and sinus: Yes normal facial exam Mouth: moist mucous membranes Throat: Yes tonsils normal Eyes Conjunctivae: conjunctivae normal Pupils: Equal, round and reactive pupils present and Pupil accommodation reflex normal Direct Ophthalmoscopy: normal light reflex Neck Neck: No lymphadenopathy Thyroid: Thyroid normal Chest Chest palpation & inspection: normal inspection of the chest Resp Effort & Inspection: normal respiratory effort and no audible wheezes Auscultation: clear to auscultation bilaterally, no crackles, no wheezes and lung sounds not diminished Cardio Rate: regular rate Rhythm: regular rhythm Peripheral pulses: radial pulses present and dorsalis pedis present GI Other: guaiac negative pedal pulses good and pin prick good, prostate N Palpation (GI): no masses Auscultation: normal bowel sounds and normoactive bowel sounds Male General Exam: Yes normal external exam Skin General skin exam: no rashes or lesions noted Rashes: no rashes Neuro General: No confusion Cranial nerves: Yes Equal, round and reactive pupils present and Yes Normal hearing present Cognition (Neuro): normal cognition Gait exam (Neuro): Normal gait present Motor exam (neuro): 5/5 motor strength present throughout Deep tendon reflexes (DTR's): Right brachioradialis reflex intensity grade: 2+, Left brachioradialis reflex intensity grade: 2+, Right patellar reflex intensity grade: 2+ and Left patellar reflex intensity grade: 2+ Extrem General: No edema Office Procedures Flu Questionnaire Does the patient have a severe egg allergy?: No Immunizations Fluarix Triv [id number] (PF) 45 mcg (15 mcg x 3)/0.5 mL IM syringe Performing Provider: Shannon Jones MD [facility] Documented (not given) by: ANCA Hemphill on 02/13/24 15:43 Reason Not Given: Patient Refused Coding Level of Care Code Est Pt Prev Care >65y(67631) Diagnoses Annual physical exam Z00.00 Typical atrial flutter I48.3 Atrial flutter type: typical Type 2 diabetes mellitus with hyperglycemia, without long-term current use of insulin E11.65 Diabetes mellitus shot polisher and inspector insulin use: without retirement use Obesity (BMI 30-39.9) E66.9 Hypercholesterolemia E78.00 Fatty liver K76.0 Essential hypertension I10 Hypertension type: essential hypertension Peripheral vascular disease I73.9 Impacted cerumen of right ear H61.21 Assessment & Plan Assessment & Plan (1) Annual physical exam: Code(s): Z00.00 - Encounter for general adult medical examination without abnormal findings Category: Medical Plan: Patient is advised to eat healthy, keep well hydrated, keep active and have adequate sleep. (2) Atrial flutter: Comment: Cardioversion 08/17/2023 Code(s): I48.92 - Unspecified atrial flutter Category: Medical Qualifiers: Atrial flutter type: typical Qualified Code(s): I48.3 - Typical atrial flutter Plan: Cardioversion done in July and has followed up with Cardiology Holter showing sinus bradycardia. Patient on dronedarone patient continues to be on anticoagulation with Eliquis patient needs blood work (3) Type 2 diabetes mellitus with hyperglycemia: Comment: [facility]--pt denies diabetes. Code(s): E11.65 - Type 2 diabetes mellitus with hyperglycemia Category: Medical Qualifiers: Diabetes mellitus shot polisher and inspector insulin use: without shot polisher and inspector use Qualified Code(s): E11.65 - Type 2 diabetes mellitus with hyperglycemia Plan: Decrease the amount of carbohydrate intake, pasta, bread, rice and potatoes are all sugar and that is aside from all the sweet stuff, remember that fruits are good but they are Sweet also. Hemoglobin A1c goal of less than 7.0 diet controlled (4) Obesity (BMI 30-39.9): Code(s): E66.9 - Obesity, unspecified Category: Medical Plan: Diet and exercise (5) Hypercholesterolemia: Comment: no medications Code(s): E78.00 - Pure hypercholesterolemia, unspecified Category: Medical Plan: Avoid fried foods, chicken skin, eggs, butter margarine, pastries and meat. Be it pork or beef they have a lot of cholesterol LDL goal of less than 100 and triglyceride of less than 150 diet controlled patient needs to have blood work done (6) Fatty liver: Code(s): K76.0 - Fatty (change of) liver, not elsewhere classified Category: Medical Plan: Low-fat diet and exercise (7) HTN (hypertension): Code(s): I10 - Essential (primary) hypertension Category: Medical Qualifiers: Hypertension type: essential hypertension Qualified Code(s): I10 - Essential (primary) hypertension Plan: Continue with blood pressure medication. Decrease salt intake and exercise on metoprolol 25 mg twice a day (8) Peripheral vascular disease: Code(s): I73.9 - Peripheral vascular disease, unspecified Category: Medical Plan: When sitting down elevate the legs, exercise, and support stockings (9) Impacted cerumen of right ear: Code(s): H61.21 - Impacted cerumen, right ear Category: Medical Plan: call for irrigation if bothering Plan - Reinforce the importance of taking apixaban as prescribed for stroke prevention. - Return to full dosing of metoprolol to manage atrial fibrillation effectively. - Suggest use of stool softeners or laxatives to manage any suspected constipation. - Advise lifestyle changes to address obesity, including diet and exercise. - During today's visit, I emphasized the importance of strict adherence to prescribed anticoagulation therapy to the patient, highlighting the associated risks of atrial fibrillation, including stroke. The patient was informed of the potential need for stool softeners to alleviate gastrointestinal side effects he attributes to anticoagulation therapy. I discussed the patient?s irregular blood pressure control observed today. We also talked about the implications of his weight fluctuations. Concerning his lifestyle habits, we briefly covered the effects of alcohol and cannabis on cardiovascular health. I reiterated the importance of completing pending blood work to monitor his condition. Follow-up care and anticipatory guidance concerning both pharmacological and lifestyle modifications were strongly recommended. Blood work to be completed for comprehensive assessment, focusing on anticoagulation and metabolic profile. - Take apixaban and metoprolol exactly as prescribed, without missing doses. - Complete blood work as soon as possible for further assessment. - Monitor your blood pressure regularly at home. - Adopt a healthier lifestyle, including dietary adjustments and increased physical activity. - Consider using stool softeners if constipation occurs to avoid exacerbation of rectal bleeding. - Limit consumption of high-sugar beverages. - Schedule and attend regular eye examinations and other routine health checks. - Seek further medical advice if experiencing unusual symptoms, such as severe headaches, chest pain, or sustained elevated blood pressure. Orders: Orders Influenza [id number] Immunization Today Z23 - Encounter for immunization
== END 2024-02-13 17:28 | disposition home or self-care (01) ==
PROVIDERS: PCP Internal Medicine; Visit Provider Internal Medicine
DX: Z00.00 Encounter for general adult medical examination without abnormal findings (principal); I48.3 Typical atrial flutter; E11.65 Type 2 diabetes mellitus with hyperglycemia; I73.9 Peripheral vascular disease, unspecified; E66.9 Obesity, unspecified; Z68.34 Body mass index [BMI] 34.0-34.9, adult; E78.00 Pure hypercholesterolemia, unspecified; K76.0 Fatty (change of) liver, not elsewhere classified; I10 Essential (primary) hypertension; H61.21 Impacted cerumen, right ear; Z23 Encounter for immunization

== ENCOUNTER → 2024-02-13 14:51 | Outpatient (BNVA) | payer MEDICAID, SELFPAY | PROVIDERS: PCP Internal Medicine; Visit Provider Internal Medicine | DX: Z00.00 Encounter for general adult medical examination without abnormal findings (principal); I10 Essential (primary) hypertension; I48.91 Unspecified atrial fibrillation; Z79.01 Long term (current) use of anticoagulants; F12.90 Cannabis use, unspecified, uncomplicated; Z28.21 Immunization not carried out because of patient refusal; I48.3 Typical atrial flutter; E66.9 Obesity, unspecified; E78.00 Pure hypercholesterolemia, unspecified; K76.0 Fatty (change of) liver, not elsewhere classified; I73.9 Peripheral vascular disease, unspecified; H61.21 Impacted cerumen, right ear; E11.65 Type 2 diabetes mellitus with hyperglycemia; Z68.34 Body mass index [BMI] 34.0-34.9, adult | CPT/HCPCS: 96127; 99397 ==

== ENCOUNTER 2024-03-05 14:50 | Outpatient (AMB) | payer MEDICAID, SELFPAY ==
[2024-03-05 14:52] VITALS: BP 140/80; PULSE 57; BMI 35.3
--- NOTE | 2024-03-05 14:52 | A.OFFVIS_ITS ---
Vital Signs 03/05/24 14:52 Height 6 ft 7 in Weight 313 lb 7.957 oz BMI 35.3 BP 140/80 H Blood Pressure Location Lt brachial Position Sitting Pulse 57 Pulse Source Monitor Intake Visit Reasons: 6 month Follow up Intake Note: 6 mth f/up Pain Management Nurse Practitioner Required: No Accompanied by: Self / Same As Patient Allergies No Known Allergies [No Known Allergies*] Allergy (Verified 02/13/24 15:39) Medication List - Last Reconciled 03/05/24 by Luciano Birmingham MD apixaban (Eliquis) 5 mg PO BID 90 days comp.stocking,thigh,long,large As directed 20-30 mm HG dronedarone 400 mg PO BID metoprolol tartrate 25 mg PO BID 90 days HPI Comments Details: [age] year gentleman who is here for follow-up. He has background history of atrial flutter and was symptomatic with palpitations and underwent cardioversion in 08/18/2023. He was started on Multaq and was already on metoprolol and Eliquis. He has done well since then. Few episodes here and there of palpitations lasting for short time. No prolonged episodes which took him to emergency department. Denying shortness of breath or chest pain. Was diagnosed with sleep apnea but could not tolerate the CPAP mask. He has tried the nasal pillow but still could not tolerate CPAP. [facility] Medical History Verruca Palpitation Atrial flutter Appendicitis Venous stasis Tubular adenoma of colon COVID-19 virus infection Low Back Pain Back pain Fatty liver Hepatitis C Cholelithiasis Peripheral neuropathy Type 2 diabetes mellitus with hyperglycemia Hypercholesterolemia Asthma Obstructive sleep apnea Obesity (BMI 30-39.9) Tubular adenoma of colon Vitamin D deficiency Umbilical hernia Peripheral vascular disease Surgical History History of appendectomy H/O hernia repair H/O colonoscopy H/O wrist surgery Family History Father Hx of CABG Mother Cancer Maternal Aunt Colon cancer Sister Substance abuse Hx of CABG Son Atrial fibrillation Brother Heart attack Hx of CABG Social History Household Members: Spouse Household Members Other:: , sister-in law Housing: House Do you presently have visiting nurse or other home services: No Comment: QO weekend 2 drinks Patient Tobacco Use Status: Former Tobacco user Tobacco use type: Cigarette Years Smoked: 1981 smoke marijuana e-Cigarette/Vaping Use: Never Used Second Hand Smoke Exposure: Yes Substance Use Type: Marijuana service: No Current occupational status: employed Current occupational exposures/hazards: No Cognitive needs: No Hearing needs: No Vision needs: Yes Review of Systems Const Denies chills, Denies fatigue, Denies fever(s), Denies frequent falls, Denies weakness, Denies weight gain and Denies weight loss ENT Denies dizziness Card Denies chest pain, Denies leg edema, Denies lightheadedness, Denies palpitations, Denies dyspnea and Denies dyspnea on exertion Resp Denies cough, Denies dyspnea and Denies dyspnea on exertion GI Denies hematochezia Musc Denies abnormal gait, Denies muscle weakness, Denies numbness, Denies radiating pain into limb and Denies tingling Neuro Denies abnormal gait, Denies dizziness, Denies frequent falls, Denies numbness, Denies tingling and Denies weakness Endo Denies fatigue and Denies palpitations Physical Exam Vital Signs: Last Vital Signs Pulse 57 03/05/24 14:52 BP 140/80 H 03/05/24 14:52 BMI result Body Mass Index 35.3 GENERAL APPEARANCE: in no acute distress, pleasant. NECK: no carotid bruit, no jugular venous distention. SKIN: no suspicious lesions, warm and dry. HEART: no murmurs, regular rate and rhythm. LUNGS: clear to auscultation bilaterally. ABDOMEN: soft, nontender. EXTREMITIES: no edema. PERIPHERAL PULSES: equal. NEUROLOGIC: No gross deficits, AAO X 3 Office Procedures EKG Details: Sinus bradycardia 57 beats per minute, leftward axis, QTC 424 milliseconds. [id number], Complete Assessment & Plan Assessment & Plan (1) Atrial flutter: Comment: Cardioversion 08/17/2023 Code(s): I48.92 - Unspecified atrial flutter Category: Medical Qualifiers: Atrial flutter type: typical Qualified Code(s): I48.3 - Typical atrial flutter (2) HTN (hypertension): Code(s): I10 - Essential (primary) hypertension Category: Medical Qualifiers: Hypertension type: essential hypertension Qualified Code(s): I10 - Essential (primary) hypertension Plan Pleasant 64 year gentleman who is here for follow-up. He has background history of type 2 diabetes, hyperlipidemia, fatty liver, hypertension, erectile d ysfunction and atrial flutter. He has sinus bradycardia on the EKG. He is on metoprolol and Multaq. Continues to be sinus at this stage. Infrequent symptoms. Eliquis for anticoagulation which he has been tolerating. He has known sleep apnea and is unable to tolerate CPAP. I have explained to him that this is a risk factor for atrial arrhythmias. We discussed about weight loss and he will discuss with his primary care physician about Ozempic. He will also start exercising regularly. Thank you for allowing me to participate in the care of your patient. Please feel free to contact me if you have any questions. Coding Level of Care Code Est Pt Level 4 (86872) Diagnoses Typical atrial flutter I48.3 Atrial flutter type: typical Essential hypertension I10 Hypertension type: essential hypertension CPT Codes EKG - CPT: 09618-[id number], Complete ([id number])
--- OUTSIDE RECORDS SUMMARY | 2024-03-05 16:56 | XMS_ITS | Patient Health Record ---
Author Organization [facility] Address [address] [place] [address] Care Team Providers Care Director Business Systems Name Role Phone Shannon Jones MD Primary Care Provider Angel Mckinley Jr Unavailable ALLERGIES No Known Allergies REASON FOR REFERRAL No Information MEDICATIONS Medication SIG (Take, Route, Fr equency, Duration) Notes Start Date End Date Status traMADol HCl 50 MG Oral for 30 Active Lisinopril 10 MG Oral for 90 A ctive Vitamin D Active SOCIAL HISTORY Sex Assigned At : Social History Observation Description Sex Assigned At Unknown PROBLEMS Problem Type ICD Code Onset Dates Problem Status W/U Status Risk SNOMED Code Notes Problem Colon cancer screening (Z12.11) Active confirmed 934282737 Problem Screening for colon cancer (Z12.11) Active confirmed 877334088 Problem Cirrhosis of liver without ascites, unspecified hepatic cirrhosis type (K74.60) Active confirmed [id number] PLAN OF TREATMENT Pending Test Test Name Order Date LIVER PROFILE 06/14/2014 LIVER PROFILE 07/22/2022 CBC w/o DIFF 06/14/2014 CBC w/o DIFF 07/22/2022 PROTHROMBIN TIME (PT, INR) 07/22/2022 HEPATITIS C VIRAL LOAD 06/14/2014 HCV RNA BDNA RFLX TMA 10/03/2014 US ABDOMEN COMP WITH ELASTOGRAPHY 2022 Liver Fibrosis Pnl 07/22/2022 Future Test Test Name Order Date COLONOSCOPY 01/27/2012 UPPER GI ENDOSCOPY 09/18/2015 COLONOSCOPY 09/18/2015 UPPER GI ENDOSCOPY 07/22/2022 COLONOSCOPY 07/22/2022 Insurance Providers Payer Name Payer Address Payer Phone Subscriber Number Group Number Insured Name Patient Relationship to Insured Coverage Start Date Coverage End Date [facility] [address] [address] [place], [place] [id number] [phone] [id number] GEE DANILO MARSH Self - patient is the insured MEDICAID OF [facility] [address] [place] [address] [phone] [id number] DANILO SENIOR Self - patient is the insured MEDICAL (GENERAL) HISTORY Medical History History ICD Code Chronic hepatitis C, Harvoni x12 weeks 2015 with SVR, F4 fibrosis/cirrhosis on noninvasive testing venous stasis Colonoscopy 12/13, tubular adenoma, five -year followup obstructive sleep apnea not on CPAP asthma gallstones EGD 12/13, no Waldron's esophagus or H. pylori. No varices or PHG Hypertension Back pain Surgical History Surgery Date(Month/Year) Umbilical and ventral hernia repairs wit h notch 05/18 Right wrist surgery
== END 2024-03-05 15:18 | disposition home or self-care (01) ==
PROVIDERS: PCP Internal Medicine; Visit Provider Internal Medicine Cardiovascular Disease
DX: I48.3 Typical atrial flutter (principal); I10 Essential (primary) hypertension
CPT/HCPCS: 93010; 99214

== ENCOUNTER → 2024-03-05 14:50 | Outpatient (BNVA) | payer MEDICAID, SELFPAY | PROVIDERS: PCP Internal Medicine; Visit Provider Internal Medicine Cardiovascular Disease | DX: I48.3 Typical atrial flutter (principal); I10 Essential (primary) hypertension; R94.31 Abnormal electrocardiogram [ECG] [EKG]; R00.1 Bradycardia, unspecified | CPT/HCPCS: 93005; 99212 ==

== ENCOUNTER 2024-05-15 12:42 | Outpatient (REF) | payer MEDICAID, SELFPAY ==
[2024-05-15 12:54] LABS: MANUAL DIFF FLAG NO
[2024-05-15 13:27] LABS: Basophils Absolute Auto 0.1 X10*3/uL (0.0-0.2); Basophils Percent Auto 0.7 % (0-2); Eosinophils Absolute Auto 0.2 X10*3/uL (0.0-0.4); Eosinophils Percent Auto 2.2 % (0-4); Hematocrit 42.8 % (42.0-52.0); Hemoglobin 15.7 g/dl (14.0-18.0); Imm Gran Abs Auto 0.03 X10*3/uL (0.00-0.03); Imm Gran Pct Auto 0.4 % (0.0-0.4); Lymphocytes Absolute Auto 1.5 X10*3/uL (1.2-4.9); Lymphocytes Percent Auto 22.7 % (20-40); Mean Corpuscular HGB Conc 36.7 g/dl (31.0-36.0); Mean Corpuscular Hemoglobin 30.1 pg (27.0-33.0); Mean Corpuscular Volume 82.1 fL (80.0-98.0); Mean Platelet Volume 9.4 fL (9.4-12.4); Monocytes Absolute Auto 0.6 X10*3/uL (0.1-1.2); Monocytes Percent Auto 8.8 % (2-11); Neutrophils Absolute Auto 4.4 x10*3/uL (2.0-8.3); Neutrophils Percent Auto 65.2 % (45-73); Platelet Count 158 X10*3/uL (160-400); Red Blood Count 5.21 X10*6/uL (4.60-5.80); Red Cell Distribution Width 12.4 % (11.0-16.0); White Blood Count 6.7 X10*3/uL (4.8-10.8)
[2024-05-15 13:38] LABS: Estimated Average Glucose 146 mg/dL; Hemoglobin A1c % 6.7 % (<6.0); Total Hemoglobin (HGBA1C) 4087.4358 umol/L
[2024-05-15 14:11] LABS: Microalbum/Creatinine Ratio Ur 6.7 ug/mg cr (<30)
[2024-05-15 14:15] LABS: Alanine Aminotransferase 62 U/L (0-40); Albumin Level 4.2 g/dL (3.5-5.0); Alkaline Phosphatase 88 U/L (39-117); Anion Gap 11 (12-20); Aspartate Amino Transferase 29 U/L (5-37); Bilirubin Total 0.7 mg/dL (0.0-1.0); Blood Urea Nitrogen 15 mg/dL (9-16); Calcium 9.2 mg/dL (8.4-10.2); Carbon Dioxide 23 mmol/L (22-29); Chloride 108 mmol/L (96-108); Cholesterol 199 mg/dL (<200); Estimated Glomerular Filt Rate > 60; Free T4 (Free Thyroxine) 0.99 ng/dL (0.71-1.85); Glucose Random 171 mg/dL (60-115); HDL Cholesterol 26 mg/dL (>40); LDL Cholesterol Calculated 134 mg/dL (<100); Potassium 4.3 mmol/L (3.3-5.1); Sodium 138 mmol/L (135-145); Thyroid Stimulating Hormone 1.96 uIU/mL (0.32-4.0); Triglycerides 196 mg/dL (<150)
[2024-05-15 14:27] LABS: Prostate Specific Antigen Scr 0.77 ng/mL (<0.05-4.0); Vitamin B12 378 pg/mL (200-900)
== END 2024-05-15 12:43 | disposition home or self-care (01) ==
LOC: HO.LAB 12:42
PROVIDERS: PCP Internal Medicine; Visit Provider Internal Medicine
DX: E11.65 Type 2 diabetes mellitus with hyperglycemia (principal); E78.00 Pure hypercholesterolemia, unspecified
CPT/HCPCS: 36415; 80053; 80061; 82043; 82570; 82607; 82746; 83036; 84153; 84439; 84443; 85025

== ENCOUNTER 2024-05-17 14:20 | Outpatient (AMB) | payer MEDICAID, SELFPAY ==
--- NOTE | 2024-05-17 14:22 | MHC.PC.OV ---
Vital Signs 05/17/24 14:24 Height 6 ft 7 in Weight 302 lb 2 oz BMI 34.0 BP 132/66 Blood Pressure Location Lt brachial Position Sitting Pulse 53 Pulse Source Pulse Oximeter Temp 96.9 F Temp Source Temporal Artery Scan Pulse Oximetry (%) 98 Oxygen Delivery Method Room Air Intake Visit Reasons: DM Intake Note: Patient is here to follow up on DM. Credentialer Required: No Food Counselor: Not Required per policy Accompanied by: Self / Same As Patient Allergies No Known Allergies [No Known Allergies*] Allergy (Verified 05/17/24 14:24) Medication List - Last Reconciled 05/17/24 by Shannon Jones MD apixaban (Eliquis) 5 mg PO BID 90 days comp.stocking,thigh,long,large As directed 20-30 mm HG dronedarone 400 mg PO BID metoprolol tartrate 25 mg PO BID 90 days Tobacco use date assessed: 05/17/24 Fall risk assessment: No Falls in past year Last assessed Fall Risk: 05/17/24 Dental Screening Dental Screen Date: 05/17/24 Did you have a dental visit in the last 12 months?: No Did you have a dental problem in the last 6 months where you did not have access to dental care?: No Was dental information given to patient?: No [facility] Medical History Verruca Palpitation Atrial flutter Appendicitis Venous stasis Tubular adenoma of colon COVID-19 virus infection Low Back Pain Back pain Fatty liver Hepatitis C Cholelithiasis Peripheral neuropathy Type 2 diabetes mellitus with hyperglycemia Hypercholesterolemia Asthma Obstructive sleep apnea Obesity (BMI 30-39.9) Tubular adenoma of colon Vitamin D deficiency Umbilical hernia Peripheral vascular disease Surgical History History of appendectomy H/O hernia repair H/O colonoscopy H/O wrist surgery Family History Father Hx of CABG Mother Cancer Maternal Aunt Colon cancer Sister Substance abuse Hx of CABG Son Atrial fibrillation Brother Heart attack Hx of CABG Social History Household Members: Spouse Household Members Other:: , sister-in law Housing: House Do you presently have visiting nurse or other home services: No Comment: QO weekend 2 drinks Patient Tobacco Use Status: Former Tobacco user Tobacco use type: Cigarette Years Smoked: 1981 smoke marijuana e-Cigarette/Vaping Use: Never Used Second Hand Smoke Exposure: Yes Substance Use Type: Marijuana service: No Current occupational status: employed Current occupational exposures/hazards: No Cognitive needs: No Hearing needs: No Vision needs: Yes Questionnaire PHQ-9 Over the last 2 weeks, how often have you been bothered by any of the following problems? 1. Little interest or pleasure in doing things: not at all 2. Feeling down, depressed, or hopeless: not at all 3. Trouble falling or staying asleep, or sleeping too much: not at all 4. Feeling tired or having little energy: not at all 5. Poor appetite or overeating: not at all 6. Feeling bad about yourself - or that you are a failure or have let yourself or your family down: not at all 7. Trouble concentrating on things, such as reading the newspaper or watching television: not at all 8. Moving or speaking so slowly that other people could have noticed. Or the opposite - being so fidgety or restless that you have been moving around a lot more than usual: not at all 9. Thoughts that you would be better off or of hurting yourself in some way: not at all Total score: 0 Depression Screening Interpretation: Negative Depression Screening Done: Yes Source: Developed by Drs. Cl Sheldon, Ann Gonzalez, Lazaro Barbosa and colleagues, with an educational navdeep from [employer]. Thrive Questionnaire Date Thrive assessed: 05/17/24 I am a: Patient What is your living situation today?: I have a steady place to live Within the past 12 months, did the food you bought not last and you didn't have the money to get more?: Never true Within the past 12 months, did you worry whether your food would run out before you got money to buy more?: Never true Do you have trouble paying for medicines?: No Do you have trouble getting transportation to medical appointments?: No Do you have trouble paying your heating and electricity bill?: No Do you have trouble taking care of your child, family member or friend?: No Do you have trouble with day-to-day activities such as bathing, preparing meals, shopping, managing finances, etc.?: No Are you currently unemployed and looking for a job?: No Are you interested in more education?: No Please select the resources that you would like help with: None Currently or been in a relationship where the following occur: No concerns reported THRIVE Score: 0 AUDIT C Alcohol Use Questionnaire (AUDIT-C) 1. How often do you have a drink containing alcohol?: Monthly or less 2. How many drinks containing alcohol do you have on a typical day when you are drinking?: 1 or 2 Total Score: 1 JUAN-7 AMB Questionnaire JUAN-7 Date JUAN - 7 assessed: 05/17/24 Feeling nervous, anxious, or on edge: 0 = Not at all Not being able to stop or control worryin = Not at all Worrying too much about different things: 0 = Not at all Trouble relaxin = Not at all Being so restless that it is hard to sit still: 0 = Not at all Becoming easily annoyed or irritable: 0 = Not at all Feeling afraid as if something awful might happen: 0 = Not at all Total JUAN-7 score (0-4 normal; 5-9 mild; 10-14 moderate; 15-21 severe): 0 Source: Developed by Drs. Cl Sheldon, Ann Gonzalez, Lazaro Barbosa and colleagues, with an educational navdeep from [employer]. Physical exam (Primary Care) Vital Signs: Last Vital Signs Temp 96.9 F 05/17/24 14:24 Pulse 53 05/17/24 14:24 BP 132/66 05/17/24 14:24 Pulse Ox 98 05/17/24 14:24 Oxygen Delivery Method Room Air 05/17/24 14:24 BMI result Body Mass Index 34.0 Tobacco/Smoking Status: Tobacco use Status Tobacco use date assessed 05/17/24 05/17/24 14:24 Patient Tobacco Use Status Former Tobacco user 05/17/24 14:23 Tobacco use type Cigarette 05/17/24 14:23 e-Cigarette/Vaping Use Never Used 05/17/24 14:23 PHQ-9: PHQ-9 Score PHQ-9: Total score 0 05/17/24 14:23 Depression Screening Interpretation: Negative Thrive Assessment: Date of Thrive Assessment Date Thrive assessed 05/17/24 05/17/24 14:23 Currently or been in a relationship where the following occur: No concerns reported Const General: alert; No acute distress Eyes Conjunctivae: conjunctivae normal Resp Auscultation: clear to auscultation bilaterally Cardio Rate: regular rate Rhythm: regular rhythm GI Inspection: Yes normal to inspection Extrem General: Yes normal to inspection and No edema Coding Level of Care Code Est Pt Level 4 (10803) Complex EM visit Add On G2211 Diagnoses Type 2 diabetes mellitus with hyperglycemia, without long-term current use of insulin E11.65 Diabetes mellitus computer terminal 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 Code(s): E11.65 - Type 2 diabetes mellitus with hyperglycemia Category: Medical Qualifiers: Diabetes mellitus senior living insulin use: without computer terminal operator use Qualified Code(s): E11.65 - Type 2 diabetes mellitus with hyperglycemia Plan: Decrease the amount of carbohydrate intake, pasta, bread, rice and potatoes are all sugar and that is aside from all the sweet stuff, remember that fruits are good but they are Sweet also. Patient is presently diet controlled hemoglobin A1c goal of less than 7.0 patient is A1c right now is 6.7 but this is an increase. (2) Hypercholesterolemia: Comment: no medications Code(s): E78.00 - Pure hypercholesterolemia, unspecified Category: Medical Plan: Avoid fried foods, chicken skin, eggs, butter margarine, pastries and meat. Be it pork or beef they have a lot of cholesterol LDL goal of less than 100 and triglyceride of less than 150. Blood work April 2024 high (3) Obstructive sleep apnea: Comment: Patient denies. States has never used his CPAP machine /can not tolerate CPAP Code(s): G47.33 - Obstructive sleep apnea (adult) (pediatric) Category: Medical Plan: Patient can not tolerate CPAP. Will try weight management (4) Obesity (BMI 30-39.9): Code(s): E66.9 - Obesity, unspecified Category: Medical Plan: Diet and exercise (5) Fatty liver: Code(s): K76.0 - Fatty (change of) liver, not elsewhere classified Category: Medical Plan: Low-fat diet and exercise (6) HTN (hypertension): Code(s): I10 - Essential (primary) hypertension Category: Medical Qualifiers: Hypertension type: essential hypertension Qualified Code(s): I10 - Essential (primary) hypertension Plan: Continue with blood pressure medication. Decrease salt intake and exercise on metoprolol 25 mg twice a day (7) Atrial flutter: Comment: Cardioversion 08/17/2023 Code(s): I48.92 - Unspecified atrial flutter Category: Medical Qualifiers: Atrial flutter type: typical Qualified Code(s): I48.3 - Typical atrial flutter Plan: Patient follows up with Cardiology on Eliquis, metoprolol and dronedarone 400 mg twice a day (8) Left low back pain: Code(s): M54.50 - Low back pain, unspecified Category: Medical Plan History of Present Illness The patient is a 64-year-old male presenting for a follow-up of chronic medical conditions, including diabetes mellitus, hypercholesterolemia, hepatic steatosis, hypertension, and obstructive sleep apnea. His diabetes regimen has been diet-controlled, but a recent hemoglobin A1c of 6.7% indicates an upward trend from previous readings, driven potentially by excessive fruit intake. While obstructive sleep apnea is diagnosed, the patient reports an inability to tolerate CPAP therapy. The patient admits to significant weight gain and hopes to manage it through lifestyle adjustments. He exhibits persistent hypercholesterolemia with LDL cholesterol levels remaining above target despite lifestyle efforts. Despite using metoprolol for hypertension, there are noted deviations including a history of atrial flutter managed with anticoagulation therapy and dronedarone. The patient exhibits thrombocytopenia, discovered incidentally, and concerns about dietary impacts on his weight and metabolic control, particularly excessive fruit consumption and its contribution to blood sugar and cholesterol levels. Health Maintenance - Discussion on weight management strategies, including diet and physical activity. - Review of recent colonoscopy performed in July 2022, with results not detailed. - Etl Database Developer consult in February 2022, with a future cardiovascular follow-up planned for July 2023. - Recent blood work performed on May 15, revealing normal blood count except for slight thrombocytopenia and high LDL cholesterol. - Discussion and recommendation for low-dose cholesterol medication. - Instructions provided to reduce excessive fruit and sugar intake to control diabetes and cholesterol levels. 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 - Nutrition: Excessive intake of fruits, particularly oranges and grapes, impacting blood sugar and cholesterol. - Exercise: Currently not engaging in structured physical exercise, although his work is physically demanding. Review of Systems - Respiratory: Denies sleep apnea. - Cardiovascular: Denies lower extremity swelling. - Musculoskeletal: Reports a knot in the back persisting for three months. Physical Exam - General- No mention of swelling in the legs during the conversation. Results - Labs: Normal blood count with slight thrombocytopenia (platelet count 158). - Tests: Hemoglobin A1c at 6.7%, indicating elevated glucose levels over the past three months. LDL cholesterol recorded at 134 mg/dL. Plan I prescribed a low-dose cholesterol medication to address the patient's hypercholesterolemia, planning to re-evaluate the condition in three months. For diabetes, dietary modifications were emphasized, focusing on reducing high-sugar fruit intake. Though the patient could benefit from weight-loss medications, he opted to initially try modifying lifestyle habits. I advised continuing anticoagulation and antiarrhythmic therapy as per cardiac recommendations and provided a muscle relaxant for back pain relief. Emphasis was placed on modifying diet to improve overall health and addressing potential sources of physical activity, ensuring a comprehensive approach to managing weight and reducing cardiovascular risk. Patient was informed and verbally consented to the use of an ambient scribe for clinic note documentation during this visit. Discussion Notes During the visit, I discussed the patient?s elevated cholesterol, indicating the need for pharmacologic intervention with initiation of a low-dose medication. Emphasis was on dietary changes, specifically reducing intake of high-sugar fruits, in light of his increased hemoglobin A1c and poorly controlled diabetes. Weight loss strategies included both lifestyle modifications and a conversation regarding the potential for medication, elaborating on the benefits of decreased diabetes risk, improved cardiovascular health, and the challenges of availability and coverage. The patient preferred lifestyle changes before considering pharmacologic therapy for weight loss. Risks and benefits were clearly outlined, including that some weight-loss medications may lack long-term safety data and could be costly if not covered by insurance. Additionally, I provided guidance on back pain management with prescribed muscle relaxants, including the caution about possible sedation. Follow-up laboratory evaluations were planned for managing cholesterol and diabetes markers, and a future eye exam was recommended considering his age and diabetic status. Patient Instructions - Begin taking the prescribed low-dose cholesterol medication as directed. - Reduce intake of high-sugar fruits, specifically limiting consumption of oranges and grapes. - Incorporate regular physical activity into daily routines to assist with weight management. - Take prescribed muscle relaxants for back pain only when not needing to concentrate intensely, due to sedative effects. - Schedule a follow-up for blood work in three months to evaluate cholesterol and diabetes control. - Arrange for an eye exam as recommended for monitoring potential diabetic complications. - Practice caution and protective measures considering high-risk periods for flu, COVID, and RSV. Orders: Orders Comprehensive Met. Panel 3 Months E78.00 - Pure hypercholesterolemia, unspecified Lipid Panel 3 Months E78.00 - Pure hypercholesterolemia, unspecified Hemoglobin A1c 3 Months E78.00 - Pure hypercholesterolemia, unspecified Complete Blood Count Auto Diff 3 Months E78.00 - Pure hypercholesterolemia, unspecified Referrals Ophthalmology Referral E11.65 - Type 2 diabetes mellitus with hyperglycemia Medications: New rosuvastatin 5 mg PO DAILY 30 tabs 4RF E78.00 - Pure hypercholesterolemia, unspecified cyclobenzaprine 10 mg PO TID PRN 30 tabs 0RF muscle spasm M54.50 - Low back pain, unspecified
[2024-05-17 14:24] VITALS: BP 132/66; PULSE 53; TEMP 36.1; O2SAT 98; BMI 34.0
== END 2024-05-17 15:12 | disposition home or self-care (01) ==
LOC: HO.HMCH 14:21
PROVIDERS: PCP Internal Medicine; Visit Provider Internal Medicine
DX: E11.65 Type 2 diabetes mellitus with hyperglycemia (principal); I48.3 Typical atrial flutter; Z68.34 Body mass index [BMI] 34.0-34.9, adult; E66.9 Obesity, unspecified; E78.00 Pure hypercholesterolemia, unspecified; G47.33 Obstructive sleep apnea (adult) (pediatric); K76.0 Fatty (change of) liver, not elsewhere classified; I10 Essential (primary) hypertension; M54.50 Low back pain, unspecified

== ENCOUNTER → 2024-05-17 14:20 | Outpatient (BNVA) | payer MEDICAID, SELFPAY | PROVIDERS: PCP Internal Medicine; Visit Provider Internal Medicine | DX: E11.65 Type 2 diabetes mellitus with hyperglycemia (principal); E78.00 Pure hypercholesterolemia, unspecified; G47.33 Obstructive sleep apnea (adult) (pediatric); I10 Essential (primary) hypertension; I48.3 Typical atrial flutter; M54.50 Low back pain, unspecified; E66.9 Obesity, unspecified | CPT/HCPCS: 99212 ==

== ENCOUNTER 2024-07-11 14:39 | Outpatient (AMB) | payer MEDICAID, SELFPAY ==
--- NOTE | 2024-07-11 15:10 | A.OFFVIS_ITS ---
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 He has background history of atrial flutter and was symptomatic with palpitations and underwent cardioversion in 08/18/2023. He was started on Multaq and was already on metoprolol and Eliquis. 07/11/2024: He is here for follow-up. He is saying he has been experiencing palpitations and feels that he is back in atrial flutter. Today he had palpitations and fatigue before he came to the office. In the office he is in sinus rhythm. He has been taking Multaq and metoprolol. He is on apixaban for anticoagulation. No bleeding issues. [facility] Medical History Verruca Palpitation Atrial flutter Appendicitis Venous stasis Tubular adenoma of colon COVID-19 virus infection Low Back Pain Back pain Fatty liver Hepatitis C Cholelithiasis Peripheral neuropathy Type 2 diabetes mellitus with hyperglycemia Hypercholesterolemia Asthma Obstructive sleep apnea Obesity (BMI 30-39.9) Tubular adenoma of colon Vitamin D deficiency Umbilical hernia Peripheral vascular disease Surgical History History of appendectomy H/O hernia repair H/O colonoscopy H/O wrist surgery Family History Father Hx of CABG Mother Cancer Maternal Aunt Colon cancer Sister Substance abuse Hx of CABG Son Atrial fibrillation Brother Heart attack Hx of CABG Social History Household Members: Spouse Household Members Other:: , sister-in law Housing: House Do you presently have visiting nurse or other home services: No Comment: QO weekend 2 drinks Patient Tobacco Use Status: Former Tobacco user Tobacco use type: Cigarette Years Smoked: 1981 smoke marijuana e-Cigarette/Vaping Use: Never Used Second Hand Smoke Exposure: Yes Substance Use Type: Marijuana service: No Current occupational status: employed Current occupational exposures/hazards: No Cognitive needs: No Hearing needs: No Vision needs: Yes Review of Systems Const Denies chills, Denies fatigue, Denies fever(s), Denies frequent falls, Denies weakness, Denies weight gain and Denies weight loss ENT Denies dizziness Card Denies chest pain, Denies leg edema, Denies lightheadedness, Denies palpitations, Denies dyspnea and Denies dyspnea on exertion Resp Denies cough, Denies dyspnea and Denies dyspnea on exertion GI Denies hematochezia Musc Denies abnormal gait, Denies muscle weakness, Denies numbness, Denies radiating pain into limb and Denies tingling Neuro Denies abnormal gait, Denies dizziness, Denies frequent falls, Denies numbness, Denies tingling and Denies weakness Endo Denies fatigue and Denies palpitations Physical Exam Vital Signs: Last Vital Signs Pulse 59 07/11/24 15:12 BP 130/70 07/11/24 15:12 BMI result Body Mass Index 33.8 GENERAL APPEARANCE: in no acute distress, pleasant. NECK: no carotid bruit, no jugular venous distention. SKIN: no suspicious lesions, warm and dry. HEART: no murmurs, regular rate and rhythm. LUNGS: clear to auscultation bilaterally. ABDOMEN: soft, nontender. EXTREMITIES: no edema. PERIPHERAL PULSES: equal. NEUROLOGIC: No gross deficits, AAO X 3 Office Procedures EKG Details: Sinus bradycardia, incomplete RBBB, Inferior infarct, QTc 411 msec. [id number], Complete Assessment & Plan Assessment & Plan (1) Atrial flutter: Comment: Cardioversion 08/17/2023 Code(s): I48.92 - Unspecified atrial flutter Category: Medical Qualifiers: Atrial flutter type: typical Qualified Code(s): I48.3 - Typical atrial flutter (2) HTN (hypertension): Code(s): I10 - Essential (primary) hypertension Category: Medical Qualifiers: Hypertension type: essential hypertension Qualified Code(s): I10 - Essential (primary) hypertension Plan Pleasant 64 year gentleman who is here for follow-up. He has background of atrial flutter. He is on Multaq for rhythm control strategy because he was symptomatic when he developed atrial flutter. He is getting palpitations and feels that his pain going back into atrial flutter and today had an episode and felt fatigue. He also had similar episodes in the past. He does not drink alcohol. He has sleep apnea but he is unable to tolerate the CPAP mask. We discussed about management options including ablation. He is interested in ablation I am referring him to electrophysiology for further assessment. Thank you for allowing me to participate in the care of your patient. Please feel free to contact me if you have any questions. Coding Level of Care Code Est Pt Level 4 (15822) Diagnoses Typical atrial flutter I48.3 Atrial flutter type: typical Essential hypertension I10 Hypertension type: essential hypertension CPT Codes EKG - CPT: 86618-[id number], Complete ([id number])
[2024-07-11 15:12] VITALS: BP 130/70; PULSE 59; BMI 33.8
== END 2024-07-11 15:48 | disposition home or self-care (01) ==
LOC: HO.HCS 14:39
PROVIDERS: PCP Internal Medicine; Visit Provider Internal Medicine Cardiovascular Disease
DX: I48.3 Typical atrial flutter (principal); I10 Essential (primary) hypertension
CPT/HCPCS: 93010; 99214

== ENCOUNTER → 2024-07-11 14:39 | Outpatient (BNVA) | payer MEDICAID, SELFPAY | PROVIDERS: PCP Internal Medicine; Visit Provider Internal Medicine Cardiovascular Disease | DX: I48.3 Typical atrial flutter (principal); I10 Essential (primary) hypertension; Z87.891 Personal history of nicotine dependence | CPT/HCPCS: 93005; 99212 ==

== ENCOUNTER 2024-08-17 14:36 | Outpatient (AMB) | payer MEDICAID, SELFPAY ==
[2024-08-17 14:38] VITALS: BP 136/86; PULSE 57; O2SAT 96; BMI 33.7
--- NOTE | 2024-08-17 14:38 | A.OFFPC_ITS ---
Vital Signs 08/17/24 14:38 Height 6 ft 7 in Weight 299 lb BMI 33.7 BP 136/86 Blood Pressure Location Lt brachial Position Sitting Pulse 57 Pulse Source Pulse Oximeter Pulse Oximetry (%) 96 Oxygen Delivery Method Room Air Intake Visit Reasons: DM, cholesterol Trainmaster Required: No Accompanied by: Self / Same As Patient Allergies No Known Allergies (No Known Allergies*) Allergy (Verified 08/17/24 14:38) Medication List - Last Reconciled 08/17/24 by Shannon Jones MD apixaban (Eliquis) 5 mg PO BID 90 days comp.stocking,thigh,long,large As directed 20-30 mm HG cyclobenzaprine 10 mg PO TID PRN dronedarone 400 mg PO BID metoprolol tartrate 25 mg PO BID omeprazole 20 mg PO DAILY rosuvastatin 5 mg PO DAILY Tobacco use date assessed: 08/17/24 Fall risk assessment: No Falls in past year Last assessed Fall Risk: 08/17/24 Dental Screening Dental Screen Date: 08/17/24 Did you have a dental visit in the last 12 months?: No Did you have a dental problem in the last 6 months where you did not have access to dental care?: No Was dental information given to patient?: No PFSH Medical History Verruca Palpitation Atrial flutter Appendicitis Venous stasis Tubular adenoma of colon COVID-19 virus infection Low Back Pain Back pain Fatty liver Hepatitis C Cholelithiasis Peripheral neuropathy Type 2 diabetes mellitus with hyperglycemia Hypercholesterolemia Asthma Obstructive sleep apnea Obesity (BMI 30-39.9) Tubular adenoma of colon Vitamin D deficiency Umbilical hernia Peripheral vascular disease Surgical History History of appendectomy H/O hernia repair H/O colonoscopy H/O wrist surgery Family History Father Hx of CABG Mother Cancer Maternal Aunt Colon cancer Sister Substance abuse Hx of CABG Son Atrial fibrillation Brother Heart attack Hx of CABG Social History Household Members: Spouse Household Members Other:: , sister-in law Housing: House Do you presently have visiting nurse or other home services: No Comment: QO weekend 2 drinks Patient Tobacco Use Status: Former Tobacco user Tobacco use type: Cigarette Years Smoked: 1981 smoke marijuana e-Cigarette/Vaping Use: Never Used Second Hand Smoke Exposure: Yes Substance Use Type: Marijuana service: No Current occupational status: employed Current occupational exposures/hazards: No Cognitive needs: No Hearing needs: No Vision needs: Yes Questionnaire PHQ-9 Over the last 2 weeks, how often have you been bothered by any of the following problems? 1. Little interest or pleasure in doing things: not at all 2. Feeling down, depressed, or hopeless: not at all 3. Trouble falling or staying asleep, or sleeping too much: not at all 4. Feeling tired or having little energy: not at all 5. Poor appetite or overeating: not at all 6. Feeling bad about yourself - or that you are a failure or have let yourself or your family down: not at all 7. Trouble concentrating on things, such as reading the newspaper or watching television: not at all 8. Moving or speaking so slowly that other people could have noticed. Or the opposite - being so fidgety or restless that you have been moving around a lot more than usual: not at all 9. Thoughts that you would be better off or of hurting yourself in some way: not at all Total score: 0 Depression Screening Interpretation: Negative Depression Screening Done: Yes Source: Developed by Drs. Cl Sheldon, Ann Gonzalez, Lazaro Barbosa and colleagues, with an educational navdeep from [employer]. Thrive Questionnaire Date Thrive assessed: 08/17/24 I am a: Patient What is your living situation today?: I have a steady place to live Within the past 12 months, did the food you bought not last and you didn't have the money to get more?: Never true Within the past 12 months, did you worry whether your food would run out before you got money to buy more?: Never true Do you have trouble paying for medicines?: No Do you have trouble getting transportation to medical appointments?: No Do you have trouble paying your heating and electricity bill?: No Do you have trouble taking care of your child, family member or friend?: No Do you have trouble with day-to-day activities such as bathing, preparing meals, shopping, managing finances, etc.?: No Are you currently unemployed and looking for a job?: No Are you interested in more education?: No Please select the resources that you would like help with: None Currently or been in a relationship where the following occur: No concerns reported THRIVE Score: 0 AUDIT C Alcohol Use Questionnaire (AUDIT-C) 1. How often do you have a drink containing alcohol?: Monthly or less 2. How many drinks containing alcohol do you have on a typical day when you are drinking?: 1 or 2 3. How often do you have six or more drinks on one occasion?: Never Total Score: 1 JUAN-7 AMB Questionnaire JUAN-7 Date JUAN - 7 assessed: 08/17/24 Feeling nervous, anxious, or on edge: 0 = Not at all Not being able to stop or control worryin = Not at all Worrying too much about different things: 0 = Not at all Trouble relaxin = Not at all Being so restless that it is hard to sit still: 0 = Not at all Becoming easily annoyed or irritable: 0 = Not at all Feeling afraid as if something awful might happen: 0 = Not at all Total JUAN-7 score (0-4 normal; 5-9 mild; 10-14 moderate; 15-21 severe): 0 Source: Developed by Drs. Cl Sheldon, Ann Gonzalez, Lazaro Barbosa and colleagues, with an educational navdeep from [employer]. Physical exam (Primary Care) Vital Signs: Last Vital Signs Pulse 57 08/17/24 14:38 BP 136/86 08/17/24 14:38 Pulse Ox 96 08/17/24 14:38 Oxygen Delivery Method Room Air 08/17/24 14:38 BMI result Body Mass Index 33.7 Tobacco/Smoking Status: Tobacco use Status Tobacco use date assessed 08/17/24 08/17/24 14:45 Patient Tobacco Use Status Former Tobacco user 08/17/24 14:45 Tobacco use type Cigarette 08/17/24 14:45 e-Cigarette/Vaping Use Never Used 08/17/24 14:45 PHQ-9: PHQ-9 Score PHQ-9: Total score 0 08/17/24 15:45 Depression Screening Interpretation: Negative Thrive Assessment: Date of Thrive Assessment Date Thrive assessed 08/17/24 08/17/24 14:45 Currently or been in a relationship where the following occur: No concerns reported Const General: alert; No acute distress Eyes Conjunctivae: conjunctivae normal Resp Auscultation: clear to auscultation bilaterally Cardio Rate: regular rate Rhythm: regular rhythm GI Inspection: Yes normal to inspection Extrem General: Yes normal to inspection and No edema Results AMB Hemoglobin A1c AMB Hemoglobin A1c 7.3 % Last Edit by ANCA Reed on 08/17/24 15 :47 Results Reviewed Results Reviewed: Laboratory Last Values Hgb A1c (Clinic) 7.3 % (4.0-6.0) H 08/17/24 15:03 Coding Level of Care Code Est Pt Level 4 (79351) Complex EM visit Add On G2211 Diagnoses Type 2 diabetes mellitus with hyperglycemia, without long-term current use of insulin E11.65 Diabetes mellitus care home insulin use: without care home use Obesity (BMI 30-39.9) E66.9 Hypercholesterolemia E78.00 Typical atrial flutter I48.3 Atrial flutter type: typical Essential hypertension I10 Hypertension type: essential hypertension Cholelithiasis K80.20 Obstructive sleep apnea G47.33 SOB (shortness of breath) on exertion R06.02 GERD (gastroesophageal reflux disease) K21.9 Assessment & Plan Assessment & Plan (1) Type 2 diabetes mellitus with hyperglycemia: Comment: [facility]--pt denies diabetes. Code(s): E11.65 - Type 2 diabetes mellitus with hyperglycemia Category: Medical Qualifiers: Diabetes mellitus care home insulin use: without medical terminologist use Qualified Code(s): E11.65 - Type 2 diabetes mellitus with hyperglycemia Plan: Decrease the amount of carbohydrate intake, pasta, bread, rice and potatoes are all sugar and that is aside from all the sweet stuff, remember that fruits are good but they are Sweet also. Hemoglobin A1c goal of less than 6.5 patient is not on any diabetic medication. Patient continues to decline diabetes medication and would like to do diet and exercise. (2) Obesity (BMI 30-39.9): Code(s): E66.9 - Obesity, unspecified Category: Medical Plan: Diet and exercise (3) Hypercholesterolemia: Comment: no medications Code(s): E78.00 - Pure hypercholesterolemia, unspecified Category: Medical Plan: Avoid fried foods, chicken skin, eggs, butter margarine, pastries and meat. Be it pork or beef they have a lot of cholesterol LDL goal of less than 100 and triglyceride of less than 150 patient is on rosuvastatin and needs blood work (4) Atrial flutter: Comment: Cardioversion 08/17/2023 Code(s): I48.92 - Unspecified atrial flutter Category: Medical Qualifiers: Atrial flutter type: typical Qualified Code(s): I48.3 - Typical atrial flutter Plan: Patient being followed up by Cardiology on anticoagulation and metoprolol. With the patient's symptomatic of this atrial flutter fibrillation will be seeing auto body repair teacher (5) HTN (hypertension): Code(s): I10 - Essential (primary) hypertension Category: Medical Qualifiers: Hypertension type: essential hypertension Qualified Code(s): I10 - Essential (primary) hypertension Plan: Continue with blood pressure medication. Decrease salt intake and exercise on metoprolol 25 mg twice a day (6) Cholelithiasis: Code(s): K80.20 - Calculus of gallbladder without cholecystitis without obstruction Category: Medical Plan: Low-fat diet and exercise (7) Obstructive sleep apnea: Comment: Patient denies. States has never used his CPAP machine /can not tolerate CPAP Code(s): G47.33 - Obstructive sleep apnea (adult) (pediatric) Category: Medical Plan: Discussed with the patient the importance of treating sleep apnea (8) SOB (shortness of breath) on exertion: Code(s): R06.02 - Shortness of breath Category: Medical (9) GERD (gastroesophageal reflux disease): Code(s): K21.9 - Gastro-esophageal reflux disease without esophagitis Category: Medical Plan: Patient feels strongly that the burning chest pain is Pulmonary. Even though discussed with the patient that cardiac problem is still and advised patient that if the pain persists go to the emergency room. Meanwhile will give medication for the stomach with omeprazole once a day as well as doing a chest x-ray and pulmonary function test Plan History of Present Illness The patient is a 64-year-old male presenting for follow-up of multiple chronic conditions including diabetes mellitus, hypertension, and atrial flutter. The patient has a history of diabetes mellitus with a recent hemoglobin A1c of 7.3, indicating poor glycemic control. He is not currently on medication for diabetes and has been advised to manage his condition through dietary changes. The patient also has a history of hypertension, currently managed with metoprolol 20.55 mg twice daily. His blood pressure management plan includes regular monitoring and lifestyle modifications. Atrial flutter is another significant condition for which the patient is under cardiology care, with discussions about potential ablation therapy. He has been referred to an auto body repair teacher for further evaluation. The patient reports a burning sensation in the ear, particularly when exerting effort such as climbing stairs, which may be related to his cardiac condition. A lung function test and chest x-ray have been planned to rule out pulmonary causes. The patient has a history of hypercholesterolemia with an LDL level of 134 mg/dL, for which he is on rosuvastatin. The goal is to reduce LDL to less than 100 mg/dL. Health Maintenance - Lung function test and chest x-ray planned to evaluate pulmonary status - Dietary modifications recommended for diabetes management Social History - Former smoker, quit in 1980 Review of Systems - Cardiovascular: Reports burning sensation in the ear during exertion. Denies chest pain or syncope. - Respiratory: Denies dyspnea, cough, or wheezing. Physical Exam Results - Labs: Hemoglobin A1c 7.3, LDL 134 mg/dL Plan The management plan for diabetes mellitus includes dietary modifications to improve glycemic control, with a goal to reduce hemoglobin A1c below 6.5. The patient is advised to monitor blood glucose levels regularly and consider medication if lifestyle changes are insufficient. For hypertension, the patient will continue on metoprolol 20.55 mg twice daily, with regular blood pressure monitoring and lifestyle modifications to maintain optimal control. Atrial flutter management involves ongoing cardiology follow-up, with a referral to an auto body repair teacher to discuss potential ablation therapy. The patient will undergo a lung function test and chest x-ray to evaluate the burning sensation in the ear and rule out pulmonary causes. For hypercholesterolemia, the patient will continue on rosuvastatin with a target LDL level of less than 100 mg/dL. Patient was informed and verbally consented to the use of an ambient scribe for clinic note documentation during this visit. Discussion Notes I discussed with the patient the importance of managing diabetes through dietary changes and the potential need for medication if lifestyle modifications are insufficient. We reviewed the management of hypertension with metoprolol and the need for regular monitoring. The patient was informed about the referral to an auto body repair teacher for atrial flutter and the possibility of ablation therapy. We also discussed the need for a lung function test and chest x-ray to investigate the burning sensation in the ear. The patient was advised to continue rosuvastatin for hypercholesterolemia with a goal to reduce LDL levels. Patient Instructions - Follow a healthy diet to manage blood sugar levels. - Monitor blood pressure regularly and take metoprolol as prescribed. - Attend cardiology follow-up appointments and discuss potential ablation t herapy. - Complete lung function test and chest x-ray as scheduled. - Continue taking rosuvastatin to manage cholesterol levels. Orders: Orders PFT pulmonary function test Today R06.02 - Shortness of breath ECG 12 lead EKG Today R06.02 - Shortness of breath AMB Hemoglobin A1c Today Z13.9 - Encounter for screening, unspecified XR chest 2V Today R06.02 - Shortness of breath Medications: New omeprazole 20 mg PO DAILY 30 caps 0RF K21.9 - Gastro-esophageal reflux disease without esophagitis
== END 2024-08-17 15:24 | disposition home or self-care (01) ==
LOC: HO.HMCH 14:37
PROVIDERS: PCP Internal Medicine; Visit Provider Internal Medicine
DX: E11.65 Type 2 diabetes mellitus with hyperglycemia (principal); E66.9 Obesity, unspecified; I48.3 Typical atrial flutter; Z68.33 Body mass index [BMI] 33.0-33.9, adult; E78.00 Pure hypercholesterolemia, unspecified; I10 Essential (primary) hypertension; K80.20 Calculus of gallbladder without cholecystitis without obstruction; G47.33 Obstructive sleep apnea (adult) (pediatric); R06.02 Shortness of breath; K21.9 Gastro-esophageal reflux disease without esophagitis

== ENCOUNTER → 2024-08-17 14:36 | Outpatient (BNVA) | payer MEDICAID, SELFPAY | PROVIDERS: PCP Internal Medicine; Visit Provider Internal Medicine | DX: E11.65 Type 2 diabetes mellitus with hyperglycemia (principal); E66.9 Obesity, unspecified; Z68.33 Body mass index [BMI] 33.0-33.9, adult; E78.00 Pure hypercholesterolemia, unspecified; I48.3 Typical atrial flutter; I10 Essential (primary) hypertension; K80.20 Calculus of gallbladder without cholecystitis without obstruction; G47.33 Obstructive sleep apnea (adult) (pediatric); R06.02 Shortness of breath; K21.9 Gastro-esophageal reflux disease without esophagitis; Z79.01 Long term (current) use of anticoagulants; Z79.899 Other long term (current) drug therapy; Z13.31 Encounter for screening for depression; Z13.30 Encounter for screening examination for mental health and behavioral disorders, unspecified | CPT/HCPCS: 83036; 99212 ==

== ENCOUNTER 2024-11-07 12:46 | Outpatient (REF) | payer OTHER, SELFPAY ==
--- NOTE | 2024-11-07 13:09 | PFT_ITS ---
Indication: Dyspnea Spirometry FEV1 to FVC 64%; FEV1 3.59 L; FVC 5.63 L. There was a significant response to bronchodilators noted. Lung Volumes Total lung capacity 94% predicted; residual volume 102% predicted Diffusion Capacity DLCO 88% predicted Comparisons None Interpretation There is an obstructive ventilatory defect consistent with moderate COPD. The patient does have a significant response to bronchodilators noted. Lung volumes and diffusing capacity within normal limits. Clinical correlation warranted. MTDD
[2024-11-07 13:56] VITALS: PULSE 64; O2SAT 95
== END 2024-11-07 12:47 | disposition home or self-care (01) ==
LOC: HO.RESP 12:46
PROVIDERS: PCP Internal Medicine; Visit Provider Internal Medicine
DX: R06.02 Shortness of breath (principal)
CPT/HCPCS: 94010; 94640; 94727; 94729

== ENCOUNTER → 2024-11-07 13:09 | Outpatient (BNV) | payer OTHER, SELFPAY | PROVIDERS: PCP Internal Medicine; Visit Provider Hospitalist | DX: J98.4 Other disorders of lung (principal) | CPT/HCPCS: 94060; 94727; 94729 ==

== ENCOUNTER 2024-12-14 12:33 | Outpatient (REF) | payer OTHER, SELFPAY ==
[2024-12-14 12:59] LABS: MANUAL DIFF FLAG NO
[2024-12-14 14:08] LABS: Hematocrit 44.4 % (42.0-52.0); Hemoglobin 15.5 g/dl (14.0-18.0); Imm Gran Abs Auto 0.03 X10*3/uL (0.00-0.03); Imm Gran Pct Auto 0.4 % (0.0-0.4); Lymphocytes Absolute Auto 1.6 X10*3/uL (1.2-4.9); Mean Corpuscular HGB Conc 34.9 g/dl (31.0-36.0); Mean Corpuscular Hemoglobin 29.4 pg (27.0-33.0); Mean Corpuscular Volume 84.3 fL (80.0-98.0); NRBC Abs Auto 0.000 X10*3/uL (0.0-0.012); NRBC Pct Auto 0.0 /100WBC (0.0-0.2); Platelet Count 168 X10*3/uL (160-400); Red Blood Count 5.27 X10*6/uL (4.60-5.80); White Blood Count 6.7 X10*3/uL (4.8-10.8)
[2024-12-14 16:05] LABS: Alanine Aminotransferase 31 U/L (0-40); Albumin Level 4.6 g/dL (3.5-5.0); Alkaline Phosphatase 78 U/L (39-117); Anion Gap 11 (12-20); Aspartate Amino Transferase 22 U/L (5-37); Blood Urea Nitrogen 22 mg/dL (9-16); Calcium 9.0 mg/dL (8.4-10.2); Carbon Dioxide 23 mmol/L (22-29); Chloride 109 mmol/L (96-108); Cholesterol 203 mg/dL (<200); Estimated Glomerular Filt Rate > 60; HDL Cholesterol 27 mg/dL (>40); Potassium 4.4 mmol/L (3.3-5.1); Sodium 139 mmol/L (135-145); Total Protein 6.8 g/dL (6.5-8.0); Triglycerides 145 mg/dL (<150)
== END 2024-12-14 12:34 | disposition home or self-care (01) ==
LOC: HO.LAB 12:33
PROVIDERS: PCP Internal Medicine; Visit Provider Internal Medicine
DX: E11.65 Type 2 diabetes mellitus with hyperglycemia (principal); E78.00 Pure hypercholesterolemia, unspecified
CPT/HCPCS: 36415; 80053; 80061; 82570; 83036; 85025

== ENCOUNTER 2025-02-15 13:12 | Outpatient (AMB) | payer MEDICARE, MEDICAID, SELFPAY ==
--- NOTE | 2025-02-15 13:15 | MHC.PC.OV ---
Vital Signs 02/15/25 13:22 02/15/25 13:34 Height 6 ft 7 in Weight 289 lb BMI 32.6 BP 140/76 H 120/70 Blood Pressure Location Lt brachial Position Sitting Pulse 55 Pulse Source Pulse Oximeter Temp 96.8 F Temp Source Temporal Artery Scan Pulse Oximetry (%) 96 Oxygen Delivery Method Room Air Intake Visit Reasons: annual exam Dice Manager Required: No Accompanied by: Self / Same As Patient Allergies No Known Allergies (No Known Allergies*) Allergy (Verified 02/15/25 13:15) Medication List - Last Reconciled 02/15/25 by Shannon Jones MD apixaban (Eliquis) 5 mg PO BID 90 days comp.stocking,thigh,long,large As directed 20-30 mm HG metoprolol tartrate 25 mg PO BID Tobacco use date assessed: 08/17/24 Dental Screening Dental Screen Date: 08/17/24 HPI HPI Comments History of Present Illness Details History of Present Illness The patient is a 65-year-old obese male presenting for a complete physical examination and management of chronic conditions. He has a history of diabetes mellitus, obstructive sleep apnea, hypercholesterolemia, asthma, tubular adenoma of the colon, cholelithiasis, hypertension, peripheral vascular disease, lumbar degenerative disc disease, atrial flutter, GERD, and COPD. Regarding his cardiac history, the patient is on Eliquis for atrial flutter and metoprolol for hypertension. He reports he has been taking both medications once daily, contrary to the prescribed twice-daily regimen. He also reports he stopped his cholesterol medication, believing it was no longer necessary after a prior heart procedure. The patient was diagnosed with moderate COPD following a pulmonary function test in October, which showed an obstructive defect. He currently denies shortness of breath or chest tightness but has an old inhaler at home. For his type 2 diabetes, which is diet-controlled, his HbA1c was 6.0% in November and is now 6.3%. His LDL cholesterol was high at 147 in November. He has achieved a 10-pound weight loss since his last visit. The patient complains of what he describes as severe heartburn, which has occurred almost daily since his heart surgery. The symptom is exacerbated by physical exertion, such as carrying logs, and radiates down both arms to his hands. He is currently out of his omeprazole, which previously helped. He has a stress test scheduled for March. Screening history includes a colonoscopy in July 2022 for a tubular adenoma. He is due for his annual diabetic eye exam. Health Maintenance The patient is due for vaccinations. He received a tetanus shot and a pneumonia shot during the visit. A letter will be provided detailing his medical history as requested for his benefits program. Social History - Diet: His is strict with his diet, which has contributed to his recent weight loss. - Weight Management: Patient has lost 10 pounds since his last visit, with his weight decreasing from 299 to 289 pounds. 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 - Marital Status: Patient is . Results - Laboratory tests (December 14): normal complete blood count with no anemia, normal electrolytes, and normal renal function. - Blood sugar was 136 mg/dL, and hemoglobin A1c was 6.0%. - Liver function was normal. - LDL cholesterol was elevated at 147 mg/dL. - Laboratory tests (current): Hemoglobin A1c is 6.3%. - Pulmonary function test (October): Showed an obstructive defect consistent with moderate COPD. [facility] Medical History Verruca Palpitation Atrial flutter Appendicitis Venous stasis Tubular adenoma of colon COVID-19 virus infection Low Back Pain Back pain Fatty liver Hepatitis C Cholelithiasis Peripheral neuropathy Type 2 diabetes mellitus with hyperglycemia Hypercholesterolemia Asthma Obstructive sleep apnea Obesity (BMI 30-39.9) Tubular adenoma of colon Vitamin D deficiency Umbilical hernia Peripheral vascular disease Surgical History History of appendectomy H/O hernia repair H/O colonoscopy H/O wrist surgery Family History Father Hx of CABG Mother Cancer Maternal Aunt Colon cancer Sister Substance abuse Hx of CABG Son Atrial fibrillation Brother Heart attack Hx of CABG Social History Household Members: Spouse Household Members Other:: , sister-in law Housing: House Do you presently have visiting nurse or other home services: No Comment: QO weekend 2 drinks Patient Tobacco Use Status: Former Tobacco user Tobacco use type: Cigarette Years Smoked: 1981 smoke marijuana e-Cigarette/Vaping Use: Never Used Second Hand Smoke Exposure: Yes Substance Use Type: Marijuana service: No Current occupational status: employed Current occupational exposures/hazards: No Cognitive needs: No Hearing needs: No Vision needs: Yes Questionnaire Thrive Questionnaire Date Thrive assessed: 08/17/24 JUAN-7 AMB Questionnaire JUAN-7 Date JUAN - 7 assessed: 08/17/24 Source: Developed by Drs. Cl Sheldon, Ann Gonzalez, Lazaro Barbosa and colleagues, with an educational navdeep from [employer] Review of Systems Narrative Review of Systems - Respiratory: Denies shortness of breath at rest and chest tightness. - Cardiovascular: Reports a sensation he describes as heartburn radiating down both arms to his hands with physical exertion. - Gastrointestinal: Reports heartburn almost daily, worsened by activity. - Denies dysphagia, constipation, or diarrhea. - Genitourinary: Reports waking 2-3 times per night to urinate, sometimes with little output. - Denies urinary problems during the day. - ENT: Denies hearing problems. Const Denies poor appetite and Denies weakness Eyes Denies no additional complaints ENT Reports Normal hearing present, Denies dizziness, Denies nasal congestion, Denies tinnitus and Denies sore throat Card Denies chest pain, Denies syncope, Denies rapid heart rate and Denies dyspnea Resp Denies cough and Denies dyspnea GI Denies change in stool character, Reports constipation, Denies diarrhea, Denies nausea and Denies vomiting Denies dysuria and Denies urinary frequency Neuro Reports Normal hearing present, Denies confusion, Denies dizziness, Denies syncope and Denies weakness Psych Denies confusion Physical exam (Primary Care) Vital Signs: Last Vital Signs Temp 96.8 F 02/15/25 13:22 Pulse 55 02/15/25 13:22 BP 120/70 02/15/25 13:34 Pulse Ox 96 02/15/25 13:22 Oxygen Delivery Method Room Air 02/15/25 13:22 BMI result Body Mass Index 32.6 Tobacco/Smoking Status: Tobacco use Status Tobacco use date assessed 08/17/24 02/15/25 13:15 Patient Tobacco Use Status Former Tobacco user 02/15/25 13:15 Tobacco use type Cigarette 02/15/25 13:15 e-Cigarette/Vaping Use Never Used 02/15/25 13:15 Thrive Assessment: Date of Thrive Assessment Date Thrive assessed 08/17/24 02/15/25 13:15 Narrative Physical Exam General: Cooperative, healthy appearing, comfortable, no acute distress and well developed Orientation: Patient oriented x3 Limitations: No limitations Head: Normal to inspection Ears: Hearing grossly normal bilaterally, some ear wax noted in one ear Nose: Normal external nose present Face and sinus: Normal facial exam Eyes: Appearance normal, both eyes and all related structures Neck: Normal visual inspection and Yes full ROM Respiratory: Normal respiratory effort and able to speak in complete sentences. Clear to auscultation bilaterally, diagnosed with COPD Cardiovascular: Regular rate and rhythm. Normal S1 and S2 GI: Normal to inspection. Soft to palpation and nontender Skin: No rashes or lesions noted Neuro: Patient oriented x3 Extremities: Normal to inspection, no lumps or bumps noted, good pulse Const General: No confusion Orientation/consciousness: No confusion HENMT Head: Yes normocephalic Ears: external ears normal and TM's normal bilaterally Face and sinus: Yes normal facial exam Mouth: moist mucous membranes Throat: Yes tonsils normal Eyes Conjunctivae: conjunctivae normal Pupils: Equal, round and reactive pupils present and Pupil accommodation reflex normal Direct Ophthalmoscopy: normal light reflex Neck Neck: No lymphadenopathy Thyroid: Thyroid normal Chest Chest palpation & inspection: normal inspection of the chest Resp Effort & Inspection: normal respiratory effort and no audible wheezes Auscultation: clear to auscultation bilaterally, no crackles, no wheezes and lung sounds not diminished Cardio Rate: regular rate Rhythm: regular rhythm Peripheral pulses: radial pulses present and dorsalis pedis present GI Other: guaiac negative prostate N Palpation (GI): no masses Auscultation: normal bowel sounds and normoactive bowel sounds Other: pedal puolse and pin prick Normal Male General Exam: Yes normal external exam Skin General skin exam: no rashes or lesions noted Rashes: no rashes Neuro General: No confusion Cranial nerves: Yes Equal, round and reactive pupils present and Yes Normal hearing present Cognition (Neuro): normal cognition Gait exam (Neuro): Normal gait present Motor exam (neuro): 5/5 motor strength present throughout Deep tendon reflexes (DTR's): Right brachioradialis reflex intensity grade: 2+, Left brachioradialis reflex intensity grade: 2+, Right patellar reflex intensity grade: 2+ and Left patellar reflex intensity grade: 2+ Extrem General: No edema Results AMB Hemoglobin A1c AMB Hemoglobin A1c 6.3 % Last Edit by ANCA Gastelum on 02/15/25 13:37 Immunizations pneumoc 20-esperanza conj-dip cr(PF) 0.5 mL IM syringe Performing Provider: Shannon Jones MD Performing Location: [facility] Administered by: ANCA Gastelum on 02/15/25 14:02 Dose Route Admin Location Dispensed Lot Number Expiration Date [facility] Digital Data Analyst 0.5 mL IM Right Deltoid 0.5 mL [id number] 11/27/25 2410-4625-15 [employer] Total Dispensed Waste 0.5 mL 0 % VIS Given Date VIS Provided VIS Publication Date 02/15/25 Single Vaccine 24 Eligibility Eligibility Date Funding Source Not VFC Eligible 02/15/25 Private Tenivac (PF) 5 Lf unit-2 Lf unit/0.5 mL intramuscular syringe Performing Provider: Shannon Jones MD Performing Location: [facility] Administered by: ANCA Gastelum on 02/15/25 14:02 Dose Route Admin Location Dispensed Lot Number Expiration Date [place] [employer] Data [employer] 0.5 mL IM Left Deltoid 0.5 mL [id number] 05/28/26 [id number] [employer] Total Dispensed Waste 0.5 mL 0 % VIS Given Date VIS Provided VIS Publication Date 02/15/25 Single Vaccine 20 Eligibility Eligibility Date Funding Source Not VFC Eligible 02/15/25 Private Results Reviewed Results Reviewed: Laboratory Last Values Hgb A1c (Clinic) 6.3 % (4.0-6.0) H 02/15/25 13:35 Coding Level of Care Code Est Pt Prev Care >65y(96023) Diagnoses Annual physical exam Z00.00 COPD (chronic obstructive pulmonary disease) J44.9 Type 2 diabetes mellitus with hyperglycemia, without long-term current use of insulin E11.65 Diabetes mellitus quartz orientator insulin use: without quartz orientator use Obesity (BMI 30-39.9) E66.9 Essential hypertension I10 Hypertension type: essential hypertension Typical atrial flutter I48.3 Atrial flutter type: typical Hypercholesterolemia E78.00 GERD (gastroesophageal reflux disease) K21.9 Fatty liver K76.0 Frequency of micturition R35.0 Assessment & Plan Assessment & Plan (1) Annual physical exam: Code(s): Z00.00 - Encounter for general adult medical examination without abnormal findings Category: Medical Plan: Patient is advised to eat healthy, keep well hydrated, keep active and have adequate sleep. (2) COPD (chronic obstructive pulmonary disease): Comment: 11/07/2024There is an obstructive ventilatory defect consistent with moderate COPD. The patient does have a significant response to bronchodilators noted. Lung volumes and diffusing capacity within normal limits. Clinical correlation warranted. Code(s): J44.9 - Chronic obstructive pulmonary disease, unspecified Category: Medical Plan: PFT revealing COPD discussed about inhalers (3) Type 2 diabetes mellitus with hyperglycemia: Comment: [facility]--pt denies diabetes. Code(s): E11.65 - Type 2 diabetes mellitus with hyperglycemia Category: Medical Qualifiers: Diabetes mellitus quartz orientator insulin use: without mcc use Qualified Code(s): E11.65 - Type 2 diabetes mellitus with hyperglycemia Plan: Decrease the amount of carbohydrate intake, pasta, bread, rice and potatoes are all sugar and that is aside from all the sweet stuff, remember that fruits are good but they are Sweet also. Hemoglobin A1c goal of less than 6.5. Patient is diet controlled (4) Obesity (BMI 30-39.9): Code(s): E66.9 - Obesity, unspecified Category: Medical Plan: Diet and exercise (5) HTN (hypertension): Code(s): I10 - Essential (primary) hypertension Category: Medical Qualifiers: Hypertension type: essential hypertension Qualified Code(s): I10 - Essential (primary) hypertension Plan: Continue with blood pressure medication. Decrease salt intake and exercise on metoprolol 25 mg twice a day (6) Atrial flutter: Comment: Cardioversion 08/17/2023 Code(s): I48.92 - Unspecified atrial flutter Category: Medical Qualifiers: Atrial flutter type: typical Qualified Code(s): I48.3 - Typical atrial flutter Plan: Continue with anticoagulation blood work twice a day year renal function (7) Hypercholesterolemia: Comment: no medications Code(s): E78.00 - Pure hypercholesterolemia, unspecified Category: Medical Plan: Avoid fried foods, chicken skin, eggs, butter margarine, pastries and meat. Be it pork or beef they have a lot of cholesterol LDL goal of less than 100 and triglyceride of less than 150 (8) GERD (gastroesophageal reflux disease): Code(s): K21.9 - Gastro-esophageal reflux disease without esophagitis Category: Medical Plan: Avoid the foods that causes that usually spicy foods, tomato products, juices, coffee, soda and foods that your sensitive to. After eating do not lie down, allow 3-4 hours before in lie down. And keep the head of bed above 30 degrees to avoid the acid from going up. (9) Fatty liver: Code(s): K76.0 - Fatty (change of) liver, not elsewhere classified Category: Medical Plan: Low-fat diet and exercise (10) Frequency of micturition: Code(s): R35.0 - Frequency of micturition Category: Medical Plan Plan Patient was informed and verbally consented to the use of an ambient scribe for clinic note documentation during this visit. 1. Hypercholesterolemia The patient's LDL cholesterol is elevated at 147 mg/dL, significantly above the goal of less than 100 mg/dL. He had previously discontinued his cholesterol medication. A prescription for cholesterol medication will be sent, and he is instructed to restart it. Follow-up blood work to recheck cholesterol levels is scheduled for three months from now. 2. Atrial Flutter And Hypertension The patient has been non-adherent with his prescribed medication regimen, taking Eliquis and metoprolol 25 mg once daily instead of twice daily. He was educated on the correct dosing frequency for both medications and instructed to take them twice a day. He will continue anticoagulation with Eliquis. 3. Type 2 Diabetes Mellitus The patient's diabetes is currently diet-controlled, with a recent HbA1c of 6.3%, which is within the goal of less than 6.5%. Continued focus on diet and exercise was encouraged. A referral will be sent for his annual diabetic eye exam, as he has not been contacted from a previous referral. 4. Chronic Obstructive Pulmonary Disease A previous PFT confirmed moderate COPD, though the patient is not currently experiencing significant shortness of breath. A new prescription for an inhaler will be sent for him to use as needed if symptoms like shortness of breath or chest tightness develop. 5. Gastroesophageal Reflux Disease And Exertional Chest/Arm Pain Patient reports exertional symptoms he describes as severe heartburn radiating to both arms. Given the nature of the symptoms, pending cardiac evaluation with a scheduled stress test in March is noted. For symptomatic relief of his daily heartburn, a prescription for omeprazole will be sent. Lifestyle modifications were discussed, including avoiding trigger foods, not lying down for 4 hours after eating, and elevating the head of the bed. 6. Nocturia The patient reports nocturia, waking 2-3 times per night. To investigate for a potential blockage or incomplete bladder emptying, an ultrasound of the abdomen and bladder, with pre- and post-void measurements, will be ordered. Discussion Notes I conducted a complete physical exam today. We reviewed his recent laboratory results, noting his HbA1c is well-controlled at 6.3% but his LDL cholesterol is very high at 147. I discussed the importance of restarting his cholesterol medication to reduce his cardiovascular risk and have sent in a prescription. We discussed his medication adherence, and I clarified that both his Eliquis and metoprolol need to be taken twice a day, not once a day as he had been doing. I also addressed his diagnosis of moderate COPD from his recent PFT and have sent a prescription for an inhaler to be used as needed for shortness of breath. We talked about his symptoms of exertional heartburn with radiation to his arms. While he has a stress test scheduled in March to evaluate for a cardiac cause, I have restarted his omeprazole for symptomatic relief and counseled him on lifestyle modifications for GERD. I recommended and ordered an ultrasound of his bladder to evaluate his nocturia. He is also due for a number of health maintenance items; a referral for a diabetic eye exam will be sent, and he agreed to and received both the tetanus and pneumonia vaccines today. Finally, I agreed to provide him with a letter outlining his chronic medical conditions for his benefits program. Patient Instructions - Take your blood thinner (Eliquis) and your blood pressure pill (metoprolol) twice every day as directed. - You need to start taking your cholesterol medication again; I have sent a new prescription to your pharmacy. - In three months (around April), you will need to get blood work done to check your cholesterol levels. - I have sent a prescription for an inhaler for your COPD. - Use it if you feel short of breath. - I have sent a prescription for your stomach (omeprazole) to help with your heartburn. - To help with heartburn, avoid spicy foods and do not lie down for at least 4 hours after you eat. - I have ordered an ultrasound of your bladder to check on the cause of your nighttime urination. - You will be contacted to schedule this. - You must see an eye doctor every year because of your diabetes. - We are sending a new referral for this. - You received a tetanus shot and a pneumonia shot today. Orders: Orders Complete Blood Count Auto Diff 3 Months E11.65 - Type 2 diabetes mellitus with hyperglycemia Comprehensive Met. Panel 3 Months E11.65 - Type 2 diabetes mellitus with hyperglycemia Free T4 (Free Thyroxine) 3 Months E11.65 - Type 2 diabetes mellitus with hyperglycemia Hemoglobin A1c 3 Months E11.65 - Type 2 diabetes mellitus with hyperglycemia Creatinine Urine 3 Months E11.65 - Type 2 diabetes mellitus with hyperglycemia Microalbumin, Random (w Creat) 3 Months E11.65 - Type 2 diabetes mellitus with hyperglycemia Vitamin B12 and Folate 3 Months E11.65 - Type 2 diabetes mellitus with hyperglycemia Magnesium 3 Months E11.65 - Type 2 diabetes mellitus with hyperglycemia AMB Hemoglobin A1c Today E11.65 - Type 2 diabetes mellitus with hyperglycemia US bladder Today R35.0 - Frequency of micturition Td Immunization Today Z23 - Encounter for immunization Thyroid Stimulating Hormone 3 Months E11.65 - Type 2 diabetes mellitus with hyperglycemia Lipid Panel 3 Months E11.65 - Type 2 diabetes mellitus with hyperglycemia, E78.00 - Pure hypercholesterolemia, unspecified Prostate Specific Antigen Scr 3 Months E11.65 - Type 2 diabetes mellitus with hyperglycemia Pneumococcal 20 Immunization Today Z23 - Encounter for immunization Referrals Ophthalmology Referral E11.65 - Type 2 diabetes mellitus with hyperglycemia Medications: New albuterol sulfate 90 mcg/actuation (Ventolin HFA) 2 puffs inhalation Q6H PRN 8.5 grams 0RF shortness of breath or wheezing J44.9 - Chronic obstructive pulmonary disease, unspecified Refilled omeprazole 20 mg PO DAILY 30 caps 0RF K21.9 - Gastro-esophageal reflux disease without esophagitis rosuvastatin 5 mg PO DAILY 30 tabs 4RF E78.00 - Pure hypercholesterolemia, unspecified
[2025-02-15 13:22] VITALS: BP 140/76; PULSE 55; TEMP 36; O2SAT 96; BMI 32.6
[2025-02-15 13:34] VITALS: BP 120/70
== END 2025-02-15 14:01 | disposition home or self-care (01) ==
LOC: HO.HMCH 13:12
PROVIDERS: PCP Internal Medicine; Visit Provider Internal Medicine
DX: Z00.00 Encounter for general adult medical examination without abnormal findings (principal); J44.9 Chronic obstructive pulmonary disease, unspecified; E11.65 Type 2 diabetes mellitus with hyperglycemia; I48.3 Typical atrial flutter; I10 Essential (primary) hypertension; E66.9 Obesity, unspecified; Z68.32 Body mass index [BMI] 32.0-32.9, adult; E78.00 Pure hypercholesterolemia, unspecified; K21.9 Gastro-esophageal reflux disease without esophagitis; K76.0 Fatty (change of) liver, not elsewhere classified; R35.0 Frequency of micturition; Z23 Encounter for immunization

== ENCOUNTER → 2025-02-15 13:12 | Outpatient (BNVA) | payer OTHER, SELFPAY | PROVIDERS: PCP Internal Medicine; Visit Provider Internal Medicine | DX: Z00.00 Encounter for general adult medical examination without abnormal findings (principal); K21.9 Gastro-esophageal reflux disease without esophagitis; I10 Essential (primary) hypertension; E66.9 Obesity, unspecified; I48.3 Typical atrial flutter; R35.0 Frequency of micturition; K76.0 Fatty (change of) liver, not elsewhere classified; Z23 Encounter for immunization; E11.65 Type 2 diabetes mellitus with hyperglycemia; E78.00 Pure hypercholesterolemia, unspecified | CPT/HCPCS: 83036; 90471; 90677; 90714; 99397 ==